=== PATIENT | male | born 1965 | race Caucasian/White ===

== ENCOUNTER 2025-09-07 19:03 | Emergency (ER) | payer BC, SELFPAY ==
[2025-09-07 19:04] VITALS: PULSE 84; RESP 20; TEMP 36.9; O2SAT 99; BMI 29.0
[2025-09-07 19:11] VITALS: BP 101/66
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
[2025-09-07 20:03] VITALS: BP 106/60; PULSE 83; RESP 14; O2SAT 98
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
--- OUTSIDE RECORDS SUMMARY | 2025-09-07 20:12 | XMS RPT_ITS | CCD ---
Author Organization [facility] ion [facility] Care Team Providers Care Legal Support Specialist Name Role Phone KRIS TELLEZ Unavailable Unavailable GIGAX, QUETA Spicer Attending Unavailable GIGAX, QUETA Spicer Attending Unavailable GIGAX, QUETA CESPEDES Attending Unavailable TELLEZ, KRIS LEXI Primary Care Unavail able TELLEZ, KRIS LEXI Attending Unavail able TELLEZ, KRIS LEXI Primary Care Unavail able GIGRYANN, QUETA CESPEDES Attending Unavailable TELLEZ, KRIS LEXI Primary Care Unavail able TELLEZ, KRIS LEXI Primary Care Unavail able GIGAX, QUETA CESPEDES Attending Unavailable TELLEZ, KRIS LEXI Primary Care Unavail able TELLEZ, KRIS LEXI Attending Unavail able TELLEZ, KRIS LEXI Primary Care Unavail able Tellez DO, Kris Lexi Primary Care Provide r Tellez DO, Kris Lexi Primary Care Provide r GEOFF, KRIS LEXI Primary Care Unavail able QUETA NELSON Attending Unavailable TELLEZ, KRIS LEXI Primary Care Unavail able QUETA NELSON Referring Unavailable GIGRYANN, QUETA CESPEDES Attending Unavailable TELLEZ, KRIS LEIX Primary Care Unavail able GIGAX, QUETA CESPEDES Attending Unavailable TELLEZ, KRIS LEXI Primary Care Unavail able TELLEZ, KRIS LEXI Primary Care Unavail able QUETA NELSON Referring Unavailable QUETA NELSON Admitting Unavailable GIGRYANN, QUETA CESPEDES Attending Unavailable TELLEZ, KRIS LEXI Primary Care Unavail able TELLEZ, KRIS LEXI Primary Care Unavail able GIGQUETA GARZON Referring Unavailable GIGRYANN, QUETA CESPEDES Attending Unavailable TELLEZ, KRIS LEXI Primary Care Unavail able TELLEZ, KRIS LEXI Attending Unavail able TELLEZ, KRIS LEXI Primary Care Unavail able GIGRYANN, QUETA CESPEDES Attending Unavailable TELLEZ, KRIS LEXI Primary Care Unavail able TELLEZ, KRIS LEXI Primary Care Unavail ecly NELSON, QUETA CESPEDES Referring Unavailable Allergies Allergy Classification Reported Allergen(s) Allergy Type Date of Onset Reaction(s) Facility (16 sources) Ciprofloxacin; Translations: [CIPROFLOXACIN] Drug Allergy 8 Other: See Comments [facility] Repository (16 sources) metroNIDAZOLE; Translations: [METRONIDAZOLE] Drug Allergy 8 Other: See Comments [facility] Repository Medications Current Medications Medication Drug Class(es) Dates Sig (Normalized) Sig (Original) KRILL OIL ORAL (6 sources) End: 06-05-2025 KRILL OIL ORAL Take by mouth. 06/05/2025 Discontinued (Discontinued by Patient) KRILL OIL ORAL T guru by mouth. Active mv-mins/folic/lycopene/ginkg o (DAILY MULTIPLE FOR MEN 50+ ORAL) (5 sources) Start: 03-20-2025 take 1 tablet by mouth once daily mv-mins/folic/lycopene/ginkgo (DAILY MULTIPLE FOR MEN 50+ ORAL) Take 1 tablet by mouth once daily. 03/20/2025 Active tadalafil 5 mg oral tablet (5 sources) Phospho diester ase 5 Inhibit or Start: 05-08-2025 End: 05-08-2026 take 1 tablet by mouth once daily Tadalafil (CIALIS) 5 mg tablet Indications: Benign prostatic hyperplasia with weak urinary stream Take 1 tablet by mouth once daily. 30 tablet 11 05/08/2025 05/08/2026 Active Completed/Discontinued Medications Medication Drug Class(es) Dates Sig (Normalized) Sig (Original) fluticasone propionate 0.05 mg/actuat metered dose nasal spray (1 source) Corticosteroid Start: 03-11-2023 take 2 spray(s) nasal route once daily at bedtime fluticasone (FLONASE) 50 mcg/actuation nasal spray Indications: Seasonal allergic rhinitis, unspecified trigger Use 2 Sprays in each nostril daily at bedtime. 16 g 2 03/11/2023 Active Comment on above: Use 2 Sprays in each nostril daily at bedtime. folic acid/multivit-min/l utein (CENTRUM SILVER ORAL) (1 source) End: 03-11-2023 folic acid/multivit-min /lutein (CENTRUM SILVER ORAL) Take by mouth. 0 03/11/2023 Discontinued Comment on above: Take by mouth. lidocaine hydrochloride 0.02 mg/mg topical gel (2 sources) Antiarrhythmic, Amide Local Anesthetic Start: 05-08-2025 End: 05-08-2025 lidocaine urojet 2 % 20 mL topical gel (GLYDO) Start: 05-08-2025 End: 05-08-2025 20 mL, URETHRAL, ONCE, 1 dos e, On Thu05/08/25 at 1530 sodium chloride 0.154 meq/ml irrigation solution (2 sources) Start: 05-08-2025 End: 05-08-2025 NaCl 0.9% irrigation solutio n Start: 05-08-2025 End: 05-08-2025 250 mL, IRRIGATION, ONCE, 1 dose, On Thu05/08/25 at 1530 1 ml triamcinolone acetonide 40 mg/ml injection (1 source) Corticosteroid Start: 03-11-2023 End: 03-11-2023 triamcinolone acetonide 40 mg injection (KeNALog 40) Start: 03-11-2023 End: 03-11-2023 triamcinolone acetonide 40 m g injection (KeNALog 40) Zinc (1 source) End: 03-11-2023 Zinc 50 mg tab Take by mouth . 0 03/11/2023 Discontinued Comment on above: Take by mouth. Problems Active Problems Problem Classification Problem Date Documented Da te Episodic/Chronic Hyperplasia of prostate (19 sources) Weak urinary stream due to benign prostatic hypertrophy; Translations: [Benign prostatic hyperplasia with lower urinary tract symptoms] Onset: 07-01-2021 07-01-2021 Chronic Other gastrointestinal disorders (15 sources) Celiac disease; Translations: [Celiac disease] Onset: 03-01-2021 03-01-2021 Chronic Other gastrointestinal disorders (1 source) Celiac disease; Translations: [Celiac disease (HCC)] Onset: 03-01-2021 Chronic Other infections; including parasitic (1 source) History of herpes zoster; Translations: [Personal history of other infectious and parasitic diseases] 06-05-2025 Episodic Other infections; including parasitic (1 source) Personal history of other infectious and parasitic diseases; Translations: [History of shingles] Onset: 06-05-2025 Episodic Other lower respiratory disease (1 source) Snoring; Translations: [Snoring] Episodic Other male genital disorders (1 source) Other male erectile dysfunction; Translations: [Other male erectile dysfunction] Onset: 08-10-2025 Chronic Other screening for suspected conditions (not mental disorders or infectious disease) (4 sources) Patient encounter status; Translations: [Encounter for screening for cardiovascular disorders] Onset: 06-05-2025 06-05-2025 Episodic Other upper respiratory disease (1 source) Seasonal allergic rhinitis; Translations: [Other seasonal allergic rhinitis] Chronic Residual codes; unclassified (1 source) Obstructive sleep apnea syndrome; Translations: [Obstructive sleep apnea (adult) (pediatric)] 06-05-2025 Chronic Residual codes; unclassified (1 source) Obstructive sleep apnea (adult) (pediatric); Translations: [BEN (obstructive sleep apnea)] Onset: 06-05-2025 Chronic Residual codes; unclassified (2 sources) Family history of malignant neoplasm of skin; Translations: [Family history of malignant neoplasm of other organs or systems] 06-05-2025 Episodic Residual codes; unclassified (1 source) Family history of malignant neoplasm of other organs or systems; Translations: [Family history of nonmelanoma skin cancer] Onset: 06-05-2025 Episodic Screening and history of mental health and substance abuse codes (2 sources) Encounter for screening for depression; Translations: [Encounter for screening examination for other mental health and behavioral disorders] Onset: 06-05-2025 Episodic Unclassified (1 source) Unknown / UNK(Unknown) Onset: 08-16-2018 Unclassified (2 sources) Autogenerated Problem Onset: 06-19-2025 06-19-2025 Past or Other Problems Problem Classification Problem Date Documented Da te Episodic/Chronic Genitourinary symptoms and ill-defined conditions (20 sources) Urinary tract obstruction; Translations: [Obstructive and reflux uropathy, unspecified] Onset: 01-10-2015 Resolved: 11-17-2023 03-01-2021 Episodic Other infections; including parasitic (10 sources) H/O: chickenpox; Translations: [Personal history of other infectious and parasitic diseases] Resolved: 03-01-2021 03-01-2021 Episodic Unclassified (1 source) RT SHOULDER PAIN Onset: 08-16-2018 Unclassified (1 source) N40.1 R39.12 Onset: 06-19-2022 Unclassified (2 sources) Patient encounter status 06-19-2025 Viral infection (10 sources) Herpes zoster without complication; Translations: [Zoster without complications] Resolved: 03-01-2021 03-01-2021 Episodic Results Test Name Value Interpretation Reference Range Facility [facility] 08-10-2025 CNOV Office Visit (UROUPD ) BLANCA NORIEGA ([id number]) 1965 M Date Time Provider Department 08/10/25 9:30 AM QUETA NELSON UROUPD During your visit today, we recorded the following information about you: Pulse Blood pressure 69/minute 110/61 Queta Nelson MD 08/10/2025 10:40 AM Signed August 10, 2025 Reason for Appointment Patient presents with: Follow Up: 6 week SX F/U. HPI Blanca Noriega is a 59 year old male who presents today for a follow-up appointment regarding the recent UroLift implantation. He notes that he was pretty sore for about a week to 10 days following the procedure but at this point he is feeling better. He is urinating much better and is pleased with the improvement in his urinary patterns. Current Medications mv-mins/folic/lycopen e/ginkgo (DAILY MULTIPLE FOR MEN 50+ ORAL) Take 1 tablet by mouth once daily. Tadalafil (CIALIS) 5 mg tablet Take 1 tablet by mouth once daily. PAST MEDICAL HISTORY Diagnosis Date Celiac disease (HCC) CPAP rhinitis Herpes zoster without complication History of chicken pox PAST SURGICAL HISTORY Procedure Laterality Date APPENDECTOMY VASECTOMY UNI/BI SPX W/POSTOP SEMEN EXAMS FAMILY HISTORY Problem Relation Age of Onset No Known Problems Mother Diabetes Father other (Kidney failure) Father other (Celiac disease) Brother No Known Problems Maternal Grandmother SOCIAL HISTORY[1] ALLERGIES Allergen Reactions Ciprofloxacin Other: See Comments Metronidazole Other: See Comments Objective BP 110/61 Pulse 69 SpO2 98% Physical Exam Constitutional: Appearance: Normal appearance. Pulmonary: Effort: Pulmonary effort is normal. Neurological: Mental Status: He is alert and oriented to person, place, and time. ASSESSMENT/PLAN: 1. Benign prostatic hyperplasia with weak urinary stream - ICD9: 600.01, 788.62, ICD10: N40.1, R39.12 (primary diagnosis) The patient is really doing well following UroLift. He said that he feels like he has gone back about 15 years in terms of his urinary patterns. He would like to stop taking the daily tadalafil which certainly is reasonable. We will plan to see him back in about 3 months. We will check a postvoid residual at that time. 2. Other male erectile dysfunction - ICD9: 607.84, ICD10: N52.8 The patient is getting some benefit from the daily tadalafil with regard to the erections. We discussed the as needed dosing in detail. The patient expressed understanding. Queta Nelson MD Follow Up Return in about 3 months (around 11/10/2025) for PVR. [1] Social History Tobacco Use Smoking status: Never Smokeless tobacco: Never Vaping Use Vaping status: Never Used Substance Use Topics Alcohol use: No Drug use: No Allergies As of Date: 08/10/2025 Noted Allergy Reaction CIPROFLOXACIN 08/13/2018 14 - Other: See Comments METRONIDAZOLE 08/13/2018 14 - Other: See Comments Date Reviewed: 08/10/2025 Reviewed by: Jessica Hawkins - Fully Assessed Reason for Visit: Follow Up [171] Cmt: 6 week SX F/U. Primary Visit Diagnosis:Benign prostatic hyperplasia with weak urinary stream [N40.1, R39.12] Other Visit Diagnosis:Other male erectile dysfunction [N52.8] Prescriptions as of 08/10/2025 - mv-mins/folic/lycopen e/ginkgo (DAILY MULTIPLE FOR MEN 50+ ORAL) Take 1 tablet by mouth once daily. - Tadalafil (CIALIS) 5 mg tablet Take 1 tablet by mouth once daily. Problem List As Of Date 08/10/2025 Noted Resolved Celiac disease [K90.0] 03/01/2021 Urinary (tract) obstruction [N13.9] 01/10/2015 11/17/2023 Difficulty urinating [R39.198] 03/01/2021 11/17/2023 History of chicken pox [Z86.19] 03/01/2021 Herpes zoster without complication [B02.9] 03/01/2021 Benign prostatic hyperplasia with weak urinary *07/01/2021 Retention of urine [R33.9] 01/08/2023 11/17/2023 Medications Discontinued During This Encounter Prescriptions - oxybutynin (DITROPAN) 5 mg tablet (Discontinued) Reported on 08/10/2025 Disposition: Return in about 3 months (around 11/10/2025) for PVR. Follow-up and Disposition History for Encounter Date Provider Department Center 08/10/2025 [id number] NELSONUROUPD [facility] Encounter Status:Closed by QUETA NELSON on 08/10/25 [facility] CNOVon 06-29-2025 [facility] Office Visit (UROUPD ) BLANCA NORIEGA ([id number]) 1965 M Date Time Provider Department 06/29/25 9:30 AM QUETA NELSON During your visit today, we recorded the following information about you: Rachana Bloom 06/29/2025 10:05 AM Signed Pt's indwelling catheter was removed without difficulty, pt tolerated well. BRAXTON Agarwal Michael Ralph, MD 06/29/2025 10:05 AM Signed Patient came in for cath removal nursing visit. Again, he underwent UroLift implantation yesterday. Allergies As of Date: 06/29/2025 Noted Allergy Reaction CIPROFLOXACIN 08/13/2018 14 - Other: See Comments METRONIDAZOLE 08/13/2018 14 - Other: See Comments Date Reviewed: 06/29/2025 Reviewed by: Rachana Bloom - Fully Assessed Reason for Visit: Follow Up [171] Cmt: Cath removal Primary Visit Diagnosis:Retention of urine [R33.9] Order(s):DISCONTINUE BARAJAS CATHETER ([place]) [[id number]] Order #: [id number]: 1 Prescriptions as of 06/29/2025 - cephALEXin (KEFLEX) 500 mg capsule Take 1 capsule by mouth three times a day for 3 days. - oxybutynin (DITROPAN) 5 mg tablet Take 1 tablet by mouth one time only for 1 dose. - mv-mins/folic/lycopen e/ginkgo (DAILY MULTIPLE FOR MEN 50+ ORAL) Take 1 tablet by mouth once daily. - Tadalafil (CIALIS) 5 mg tablet Take 1 tablet by mouth once daily. Problem List As Of Date 06/29/2025 Noted Resolved Celiac disease [K90.0] 03/01/2021 Urinary (tract) obstruction [N13.9] 01/10/2015 11/17/2023 Difficulty urinating [R39.198] 03/01/2021 11/17/2023 History of chicken pox [Z86.19] 03/01/2021 Herpes zoster without complication [B02.9] 03/01/2021 Benign prostatic hyperplasia with weak urinary *07/01/2021 Retention of urine [R33.9] 01/08/2023 11/17/2023 Encounter Status:Closed by QUETA NELSON on 06/29/25 [facility] ANES POSTPROC EVALon 025 ANES POSTPROC EVAL HNO ID: [id number] Author: LADONNA TAYLOR MD Service: ? Author Type: Physician Type: Anesthesia Postprocedure Evaluation Filed: 06/28/2025 16:56 Note Text: POST ANESTHESIA EVALUATION NOTE : 1965 Procedure Summary Date: 06/28/25 Room / Location: UN OR 06 / UN OR Anesthesia Start: 817 Anesthesia Stop: 857 Procedures: CYSTOSCOPY (Bladder) CYSTOURETHROSCOPY W/INSERTION OF PERM ADJ TRANSPROSTATIC IMPLANT; SINGLE IMPLANT (Bladder) Diagnosis: Benign prostatic hyperplasia with weak urinary stream (Benign prostatic hyperplasia with weak urinary stream [N40.1, R39.12]) Surgeons: Queta Nelson MD Responsible Provider: Ladonna Taylor MD Anesthesia Type: MAC ASA Status: 2 Anesthesia Type: MAC Last Vitals Vitals Value Taken Time BP 120/85 06/28/25 10:00 Temp 36.2 ?C (97.2 ?F) 06/28/25 08:59 Pulse 56 06/28/25 10:00 Resp 16 06/28/25 08:59 SpO2 98 % 06/28/25 10:06 Vitals shown include unfiled device data. Post Anesthesia Patient Status Patient Evaluation: bedside. Anticipated Disposition: phase 2 then home. Neurological Status: aware and responsive. Pulmonary Status: breathing comfortably on room air Airway Control: returned to baseline unsupported. Cardiovascular Status: stable. Pain Management: satisfactory to patient Postoperative Hydration: acceptable. Intraoperative Events: no significant anesthesia events Post Operative Nausea/Vomiting Status: no significant post operative nausea or vomiting Recommendation: continue current plan of care. Anesthesia Observations No Documentation SIGNATURE: Ladonna Taylor MD PATIENT NAME: Blanca Noriega DATE: June 28, 2025 TIME: 4:56 PM CSN: [id number] [facility] ANES PRE-OPon 06-28-2025 ANES PRE-OP HNO ID: [id number] Author: LADONNA TAYLOR MD Service: ? Author Type: Physician Type: Anesthesia Preprocedure Evaluation Filed: 06/28/2025 07:17 Note Text: ANESTHESIOLOGY DAY OF SURGERY NOTE : 1965 pt denies any previous problems with anesthesia BEN, wears CPAP Procedure Information Date/Time: 06/28/25 0815 Procedures: CYSTOSCOPY (Bladder) CYSTOURETHROSCOPY W/INSERTION OF PERM ADJ TRANSPROSTATIC IMPLANT; SINGLE IMPLANT (Bladder) Location: UN OR 04 / UN OR Surgeons: Queta Nelson MD Estimated body mass index is 25.85 kg/m? as calculated from the following: Height as of this encounter: 175.3 cm (5' 9). Weight as of this encounter: 79.4 kg (175 lb 0.7 oz). Most recent hematocrit and potassium results: Hematocrit 47.0 06/05/2025 Potassium 5.1 06/05/2025 Relevant Problems No relevant active problems I - PHYSICAL EVALUATION AIRWAY Patient intubated: No. Tracheostomy tube not present Mallampati: III. TM distance: >3 FB. Neck ROM: full ROM without neurological symptoms. Mouth openin FB. Short neck: no. Thick neck: no DENTAL Dental findings: teeth intact. Additional exam findings: yes. CARDIOVASCULAR Normal cardiovascular observations. PULMONARY Normal pulmonary observations. II - ANESTHESIA PLAN ASA Score: 2 Anesthetic Plan: MAC NPO Status: adequate Monitoring Plan Monitoring plan: standard ASA. Post Procedure Analgesic Plan Postoperative analgesic plan: per surgical service. Informed Consent Anesthetic risks, benefits, alternatives, personnel and consent discussed: yes. Patient / Responsible Alliance Party agrees to proceed: yes Patient / Surrogate agrees to blood products: blood products not planned Significant changes in the patient condition since the History and Physical, not otherwise documented in primary service progress note: no. Vitals Value Taken Time BP 121/80 06/28/25 06:58 Pulse 95 06/28/25 06:58 Resp 20 06/28/25 06:58 Temp 36.6 ?C (97.8 ?F) 06/28/25 06:58 SpO2 98 % 06/28/25 06:58 Facility-Administered Medications as of 06/28/2025 Medication Dose Route Frequency lactated ringers iv infusion 5-30 mL/hr INTRAVENOUS CONTINUOUS ceFAZolin iv piggyback 2 g in D5W (iso-osmotic) 100 mL (ANCEF) 2 g INTRAVENOUS Pre-Op Once Outpatient Medications as of 06/28/2025 Medication Sig mv-mins/folic/lycopen e/ginkgo (DAILY MULTIPLE FOR MEN 50+ ORAL) Take 1 tablet by mouth once daily. Tadalafil (CIALIS) 5 mg tablet Take 1 tablet by mouth once daily. I have interviewed and examined the patient. I have reviewed the medical record and/or the pre-anesthesia evaluation, pertinent labs, and test results. This contains updated information obtained within 48 hours of Surgery/Procedure. SIGNATURE: Ladonna Taylor MD PATIENT NAME: Blanca Noriega DATE: June 28, 2025 TIME: 7:17 AM CSN: [id number] [facility] 06-28-2025 [facility] Telephone (UROUPD) BLANCA NORIEGA ([id number]) 1965 M Date Time Provider Department 06/28/25 QUETA NELSON During your visit today, we recorded the following information about you: Erick Turner 06/28/2025 3:28 PM Signed Patient called stating he had a procedure done this morning and plans to stop in office tomorrow morning to get the cath removed. Queta Nelson MD 06/28/2025 3:57 PM Signed Noted. He can be a nurse visit. He is already on antibiotics Fatuo Thornton MA 06/28/2025 4:07 PM Signed Patient scheduled Fatou Thornton MA Allergies As of Date: 06/28/2025 Noted Allergy Reaction CIPROFLOXACIN 08/13/2018 14 - Other: See Comments METRONIDAZOLE 08/13/2018 14 - Other: See Comments Date Reviewed: 06/28/2025 Reviewed by: Candi French RN - Fully Assessed Reason for Visit: Patient Update [1234] Prescriptions as of 06/28/2025 - cephALEXin (KEFLEX) 500 mg capsule Take 1 capsule by mouth three times a day for 3 days. - mv-mins/folic/lycopen e/ginkgo (DAILY MULTIPLE FOR MEN 50+ ORAL) Take 1 tablet by mouth once daily. - Tadalafil (CIALIS) 5 mg tablet Take 1 tablet by mouth once daily. Problem List As Of Date 06/28/2025 Noted Resolved Celiac disease [K90.0] 03/01/2021 Urinary (tract) obstruction [N13.9] 01/10/2015 11/17/2023 Difficulty urinating [R39.198] 03/01/2021 11/17/2023 History of chicken pox [Z86.19] 03/01/2021 Herpes zoster without complication [B02.9] 03/01/2021 Benign prostatic hyperplasia with weak urinary *07/01/2021 Retention of urine [R33.9] 01/08/2023 11/17/2023 Encounter Status:[facility] BLAN[facility] ([id number]) 1965 M Date Time Provider Department 06/28/25 ELISSA SANTOS UROUPKrystina During your visit today, we recorded the following information about you: Elissa Santos DO 06/28/2025 7:13 PM Signed Pt called office reporting bladder spasms. Plan is for barajas removal severo, sending 1x dose oxybutynin for tonight. He reported UOP dark beer in color, advised to increase fluid intake. Given return precautions Elissa Santos DO Allergies As of Date: 06/28/2025 Noted Allergy Reaction CIPROFLOXACIN 08/13/2018 14 - Other: See Comments METRONIDAZOLE 08/13/2018 14 - Other: See Comments Date Reviewed: 06/28/2025 Reviewed by: Candi French RN - Fully Assessed Primary Visit Diagnosis:Bladder spasm [N32.89] Order(s):oxybutynin (DITROPAN) 5 mg tabletTake 1 tablet by mouth one time only for 1 dose.Disp: 1 tabletRfl: 0 Prescriptions as of 06/28/2025 - cephALEXin (KEFLEX) 500 mg capsule Take 1 capsule by mouth three times a day for 3 days. - oxybutynin (DITROPAN) 5 mg tablet Take 1 tablet by mouth one time only for 1 dose. - mv-mins/folic/lycopen e/ginkgo (DAILY MULTIPLE FOR MEN 50+ ORAL) Take 1 tablet by mouth once daily. - Tadalafil (CIALIS) 5 mg tablet Take 1 tablet by mouth once daily. Problem List As Of Date 06/28/2025 Noted Resolved Celiac disease [K90.0] 03/01/2021 Urinary (tract) obstruction [N13.9] 01/10/2015 11/17/2023 Difficulty urinating [R39.198] 03/01/2021 11/17/2023 History of chicken pox [Z86.19] 03/01/2021 Herpes zoster without complication [B02.9] 03/01/2021 Benign prostatic hyperplasia with weak urinary *07/01/2021 Retention of urine [R33.9] 01/08/2023 11/17/2023 Prescriptions ordered this encounter Disp Refills Start End OXYBUTYNIN CHLORIDE 5 MG TABLET 1 ta* 0 06/28/2025 06/28/2025 Route: PO Sig: Take 1 tablet by mouth one time only for 1 dose. Encounter Status:Closed by ELISSA SANTOS on 06/28/25 [facility] HISTORY PHYSICALon HISTORY PHYSICAL HNO ID: [id number] Author: QUETA NELSON MD Service: Urology Author Type: Physician Type: H&P Filed: 06/28/2025 07:58 Note Text: UPDATED HISTORY AND PHYSICAL EXAMINATION SERVICE DATE: 06/28/2025 SERVICE TIME: 7:57 AM Assessment AND Plan PHYSICAL EXAM MUST BE COMPLETED ON ADMISSION The History and Physical (completed in the past 30 days) has been reviewed and the patient has been examined. The contents accurately reflect the patient's condition with the following additions or revisions since the HANDP was completed. Examination indicates no changes. This HANDP can be found in the Electronic Medical Record. SIGNATURE: Queta Nelson MD PATIENT NAME: Blanca Noriega DATE: June 28, 2025 TIME: 7:[address] [facility] OPERATIVE NOon 06-28-2025 OPERATIVE NO HNO ID: [id number] Author: QUETA NELSON MD Service: Urology Author Type: Physician Type: Operative Report Filed: 06/28/2025 09:02 Note Text: OPERATIVE/PROCEDURE REPORT LOG ID: [id number] SURGERY/PROCEDURE DATE: 06/28/2025 INCISION/PROCEDURE START TIME: 8:30 AM INCISION CLOSE/PROCEDURE END TIME: 8:50 AM SURGEON(S)/PROCEDURAL IST(S) AND TIRE TESTER(S): Surgeons and Role: * Queta Nelson MD - Primary No Additional Staff SURGERY/PROCEDURE(S): Cystoscopy cystoscopy with UroLift implantation (7 implants attempted, 6 seated) ANESTHESIA: Monitored Anesthesia Care SURGERY/PROCEDURE DETAILS: The patient was taken to the operating room and placed in the supine position on the cystoscopy table. After he was sedated he was placed in the dorsolithotomy position and prepped and draped in usual fashion. The 20 [place] UroLift scope was inserted with the visual obturator. No abnormalities were noted within the bladder. I then obtained the first UroLift implant. The scope was then backed out into the prostatic fossa roughly 2 cm distal to the bladder neck. The first implant was deployed at this level. I then obtained a second implant which was deployed on the contralateral side at the same level. The third implant was then deployed just proximal to the verumontanum on the left side of the gland. The fourth implant was deployed just proximal to the verumontanum on the right side of the gland. At this point the right side of the gland was nicely retracted however the left side was still bulging into the channel. 1/5 implant was then deployed into this tissue just proximal to the verumontanum clip. There was again some bulging tissue requiring an additional implant. Upon attempting the sixth implant on the patient's left side the implant did not seat properly due to a bone strike secondary to the patient's anatomy. Upon second attempt with reduced compression the implant seated properly without the the bone strike. This implant resulted in excellent retraction of the lateral lobe obstruction. At this point the prostatic fossa was nicely patent. There was some oozing of blood from the prostate so I elected to place the catheter. The scope was removed. An 18 Croatian coude catheter was placed without difficulty. The balloon was inflated with 10 mL of sterile water. I manually irrigated the bladder a couple times. The irrigation was clear. The catheter was left to straight drain. The procedure was terminated. The patient was awakened and taken back to the ambulatory surgery care unit in stable condition. PRE-OP/PRE-PROCEDURE DIAGNOSIS: BPH with obstruction POST-OP/POST-PROCEDUR E DIAGNOSIS: Same ESTIMATED BLOOD LOSS: 10 mL SPECIMENS: None IMPLANTABLE DEVICES: UroLift implantation x 6 (7 attempted) DRAINS: Barajas catheter COMPLICATIONS: None CLOSURE TECHNIQUE: Not applicable PARTICIPATION IN SURGERY/PROCEDURE: I/primary surgeon/proceduralist performed the procedure with assistance. SIGNATURE: Queta Nelson MD PATIENT NAME: Blanca Noriega DATE: June 28, 2025 TIME: 8:[address] [facility] Bacteria Ur Culton 5 Bacteria identified Cx Nom (U) CULTURE, URINE: No growth (<1,000 CFU/ml) [facility] Comment on above: Performed By: #### 6 30-4 ####[facility] [id number] [place] [id number] [place] [facility] CNOVon 06-19-2025 CNOV Office Visit (UROUPD ) BLANCA NORIEGA ([id number]) 1965 M Date Time Provider Department 06/19/25 9:15 AM QUETA NELSON During your visit today, we recorded the following information about you: Pulse Blood pressure 52/minute 116/74 Jessica Hawkins 06/19/2025 9:30 AM Signed ULTRASOUND PVR VOLUME: 211 ml TIME: 9:30 am. DONE BY: Fatou Martinez MA 06/19/2025 9:51 AM Signed Outpatient Surgery Instructions We have scheduled your surgery for at [facility]. You will receive your surgery time from [facility] the business day prior to surgery. Instructions for the Day of Surgery: On the day of your scheduled surgery, report to the Main Lobby Registration at [facility] using the Main Hospital Entrance. You will be required to have a responsible adult, 18 years or older and who is licensed to drive, accompany you home after the surgery or day of discharge. Remember to wear comfortable clothing. The hospital will provide a gown for you. Pre-Operative Instructions: Do not eat or drink anything after midnight prior to surgery. Make sure to follow any specific instructions given by your surgeon; for example, if you are to be on a clear liquid diet the day before your surgery and then to stop all intake after midnight prior to surgery. Shower using CHG soap the evening before and the morning of surgery, or as directed by the surgeon?s office. Do not use CHG soap on the face or genital areas. Wear clean clothes after showering and have clean bed linens the night before surgery. Do not shave the operative area or surrounding site. Make sure to complete ALL pre-op testing prior to surgery: labs, radiology, EKG, etc. TWO week before surgery is best or as instructed by your surgeon. If testing is not done at [facility], please have the facility send results to your surgeon?s office. Do not drink alcohol, use smokeless tobacco, or any type of marijuana products after midnight prior to surgery. Do not use any type of tobacco products, including vaping, on the morning of or the day of your surgery. Any abrasions, open wounds or change in skin condition and/or a change in health, fever, cough, cold and flu like symptoms is to be reported to the patient?s surgeon. If you have contacts, dentures, or any type of jewelry, please leave these items and other valuables at home, or be able to remove them upon arrival. Please bring hearing aids if you have them, they will be removed before going into the OR/procedure room and will be returned to you after recovery. Instructions for Medications Prior to Surgery: The Pre-Op Clinic will contact you prior to surgery and review the medications you are to take the morning of surgery, with a small sip of water only. The staff will also review your medical history, including an up-to-date medication list, and pre-op instructions. For any type of blood thinners, please hold blood thinner (Coumadin, Aspirin, Plavix, NSAIDS, etc. This is including Ibuprofen products, Naproxen products, Celebrex, Ketoprofen, Indomethacin, Diclofenac, Meclofenamate, or Etodolac.) starting 7 days before surgery. If you have an insulin pump, please refer to your prescribing provider for dose instructions the day of surgery. If you have any questions before surgery please call the office at [phone] and ask for the boats renter. Queta Nelson MD 06/19/2025 10:12 AM Signed June 19, 2025 Reason for Appointment Patient presents with: Follow Up: 6 week PVR. HPI Blanca Noriega is a 59 year old male who presents today for a follow-up a follow-up appointment. Clinically the patient is doing okay. He said that he thinks there may have been some initial improvement with his urinary patterns with the tadalafil however at this point he is still complaining about hesitancy and incomplete emptying despite taking the medication. The patient has had symptoms for quite some time and feels like he is ready for surgical intervention. Current Medications mv-mins/folic/lycopen e/ginkgo (DAILY MULTIPLE FOR MEN 50+ ORAL) Take 1 tablet by mouth once daily. Tadalafil (CIALIS) 5 mg tablet Take 1 tablet by mouth once daily. PAST MEDICAL HISTORY Diagnosis Date Celiac disease (HCC) CPAP rhinitis Herpes zoster without complication History of chicken pox PAST SURGICAL HISTORY Procedure Laterality Date APPENDECTOMY VASECTOMY UNI/BI SPX W/POSTOP SEMEN EXAMS FAMILY HISTORY Problem Relation Age of Onset No Known Problems Mother Diabetes Father other (Kidney failure) Father other (Celiac disease) Brother No Known Problems Maternal Grandmother SOCIAL HISTORY[1] ALLERGIES Allergen Reactions Ciprofloxacin Other: See Comments Metronidazole Other: See Comments Objective BP 116/74 Pulse 52 SpO2 100% Physical Exam Constitu (more content not included)... Normal [facility] ECG COMPLETEon 06-19-2025 ECG COMPLETE Ventricular Rate : 5 6 BPM Atrial Rate : 56 BPM P-R Interval : 152 ms QRS Duration : 88 ms Q-T Interval : 414 ms QTC Calculation(Bazett) : 399 ms Calculated P [place] : 17 degrees Calculated R [place] : 10 degrees Calculated T [place] : 65 degrees Sinus bradycardia Otherwise normal ECG No previous ECGs available Confirmed by NICOLAS RAMIREZ MD ([id number]) on 06/20/2025 8:26:35 AM NAME : BLANCA NORIEGA PID : [id number] : 1965 Gender : Male Race : ORD : [id number] Procedure Date : Jun 19 2025 10:12:05 Edit Date : Jun 20 2025 08:26:37 Diagnosis: Sinus bradycardia Otherwise normal ECG No previous ECGs available Confirmed by NICOLAS RAMIREZ MD ([id number]) on 06/20/2025 8:26:35 AM Test Reason : [facility] Over[facility] By : NICOLAS RAMIREZ MD Edited By : NICOLAS RAMIREZ MD Referred By : QUETA NELSON Acquired by : MASSIEL WHITE [facility] 25(OH)D3 [facility] 20[facility] 25-hydroxyvitamin D3 [Mass/Vol] 43.9 ng/mL Normal 31.0-80.0 [facility] Comment on above: Order Comment: Speci men Type: BLOOD SPECIMENOrdering Facility: [facility] Address: [address] [place] [address] Performed By: #### 1 989-3, 15083-1, 93080-4 ####[facility] LABCLIA [id number] [place] [address] [place] CBC W Auto Differential pane l (Bld)on 06-05-2025 Basophils (Bld) [#/Vol] 0.03 10*3/uL Normal <0.11 [facility] Comment on above: Order Comment: Speci men Type: BLOOD SPECIMENOrdering Facility: [facility] Address: [address] [place] [address] Performed By: #### 5 7021-8 ####[facility] LABCLIA [id number] [place] [address] [place] Basophils/100 WBC (Bld) 0.7 % Normal [facility] Comment on above: Order Comment: Speci men Type: BLOOD SPECIMENOrdering Facility: [facility] Address: [address] [place] [address] Performed By: #### 5 7021-8 ####[facility] LABIA [id number] [place] [address] [place] [facility] Differential cell count method Nom (Bld) Auto Normal [facility] Comment on above: Order Comment: Speci men Type: BLOOD SPECIMENOrdering Facility: [facility] Address: [address] [place] [address] Performed By: #### 5 7021-8 ####[facility]CLIA [id number] [place] [address] [place] Eosinophils (Bld) [#/Vol] 0.19 10*3/uL Normal <0.46 [facility] Comment on above: Order Comment: Speci men Type: BLOOD SPECIMENOrdering Facility: [facility] Address: [address] [place] [address] Performed By: #### 5 7021-8 ####[facility]CLIA [id number] [place] [address] [place] Eosinophils/100 WBC (Bld) 4.7 % Normal [facility] Comment on above: Order Comment: Speci men Type: BLOOD SPECIMENOrdering Facility: [facility] Address: [address] [place] [address] Performed By: #### 5 7021-8 ####[facility] LABIA [id number] [place] [address] [place] [facility] Erythrocyte distribution width (RBC) [Ratio] 13.5 % Normal 11.5-15.0 [facility] Comment on above: Order Comment: Speci men Type: BLOOD SPECIMENOrdering Facility: [facility] Address: [address] [place] [address] Performed By: #### 5 7021-8 ####[facility] [place] [id number] [address] [place] Hematocrit (Bld) [Volume fraction] 47.0 % Normal 39.0-51.0 [facility] Comment on above: Order Comment: Speci men Type: BLOOD SPECIMENOrdering Facility: [facility] Address: [address] [place] [address] Performed By: #### 5 7021-8 ####[facility] [place] [id number] [place] [address] [place] Hemoglobin (Bld) [Mass/Vol] 15.6 g/dL Normal 13.0-17.0 [facility] Comment on above: Order Comment: Speci men Type: BLOOD SPECIMENOrdering Facility: [facility] Address: [address] [place] [address] Performed By: #### 5 7021-8 ####[facility] LABIA [id number] [address] [place] [facility] Immature granulocytes (Bld) [#/Vol] 10*3/uL Normal <0.10 [facility] Comment on above: Order Comment: Speci men Type: BLOOD SPECIMENOrdering Facility: [facility] Address: [address] [place] [address] Performed By: #### 5 7021-8 ####[facility] LABIA [id number] [place] [address] [place] [facility] Immature granulocytes/100 WBC (Bld) 0.5 % Normal [facility] Comment on above: Order Comment: Speci men Type: BLOOD SPECIMENOrdering Facility: [facility] Address: [address] [place] [address] Performed By: #### 5 7021-8 ####[facility] LABIA [id number] [place] [address] [place] Lymphocytes (Bld) [#/Vol] 1.07 10*3/uL Normal 1.00-4.00 [facility] Comment on above: Order Comment: Speci men Type: BLOOD SPECIMENOrdering Facility: [facility] Address: [address] [place] [address] Performed By: #### 5 7021-8 ####[facility] [place] [id number] [address] [place] Lymphocytes/100 WBC (Bld) 26.4 % Normal [facility] Comment on above: Order Comment: Speci men Type: BLOOD SPECIMENOrdering Facility: [facility] Address: [address] [place] [address] Performed By: #### 5 7021-8 ####[facility] LABIA [id number] [place] [address] [place] MCH (RBC) [Entitic mass] 31.1 pg Normal 26.0-34.0 [facility] Comment on above: Order Comment: Speci men Type: BLOOD SPECIMENOrdering Facility: [facility] Address: [address] [place] [address] Performed By: #### 5 7021-8 ####[facility] LABIA [id number] [place] [address] [place] MCHC (RBC) [Mass/Vol] 33.2 g/dL Normal 30.5-36.0 [facility] Comment on above: Order Comment: Speci men Type: BLOOD SPECIMENOrdering Facility: [facility] Address: [address] [place] [address] Performed By: #### 5 7021-8 ####[facility] LABIA [id number] [place] [address] [place] MCV (RBC) [Entitic vol] 93.8 fL Normal 80.0-100.0 [facility] Comment on above: Order Comment: Speci men Type: BLOOD SPECIMENOrdering Facility: [facility] Address: [address] [place] [address] Performed By: #### 5 7021-8 ####[facility] LABIA [id number] [place] [address] [place] Monocytes (Bld) [#/Vol] 0.50 10*3/uL Normal <0.87 [facility] Comment on above: Order Comment: Speci men Type: BLOOD SPECIMENOrdering Facility: [facility] Address: [address] [place] [address] Performed By: #### 5 7021-8 ####[facility] [place] [id number] [place] [address] [place] Monocytes/100 WBC (Bld) 12.3 % Normal [facility] Comment on above: Order Comment: Speci men Type: BLOOD SPECIMENOrdering Facility: [facility] Address: [address] [place] [address] Performed By: #### 5 7021-8 ####[facility] [place] [id number] [place] [address] [place] Neutrophils (Bld) [#/Vol] 2.24 10*3/uL Normal 1.45-7.50 [facility] Comment on above: Order Comment: Speci men Type: BLOOD SPECIMENOrdering Facility: [facility] Address: [address] [place] [address] Performed By: #### 5 7021-8 ####[facility] [id number] [place] [address] [place] Neutrophils/100 WBC (Bld) 55.4 % Normal [facility] Comment on above: Order Comment: Speci men Type: BLOOD SPECIMENOrdering Facility: [facility] Address: [address] [place] [address] Performed By: #### 5 7021-8 ####[facility] LABIA [id number] [place] [address] [place] Nucleated RBC (Bld) [#/Vol] 10*3/uL Normal <0.01 [facility] Comment on above: Order Comment: Speci men Type: BLOOD SPECIMENOrdering Facility: [facility] Address: [address] [place] [address] Performed By: #### 5 7021-8 ####[facility] [place] [id number] [place] [address] [place] Nucleated RBC/100 WBC (Bld) [Ratio] 0.0 /100 WBC Normal [facility] Comment on above: Order Comment: Speci men Type: BLOOD SPECIMENOrdering Facility: [facility] Address: [address] [place] [address] Performed By: #### 5 7021-8 ####[facility] [place] [id number] [place] [address] [place] Platelet mean volume (Bld) [Entitic vol] 11.1 fL Normal 9.0-12.7 [facility] Comment on above: Order Comment: Speci men Type: BLOOD SPECIMENOrdering Facility: [facility] Address: [address] [place] [address] Performed By: #### 5 7021-8 ####[facility] [place] [id number] [place] [address] [place] Platelets (Bld) [#/Vol] 184 10*3/uL Normal 150-400 [facility] Comment on above: Order Comment: Speci men Type: BLOOD SPECIMENOrdering Facility: [facility] Address: [address] [place] [address] Performed By: #### 5 7021-8 ####[facility] [id number] [place] [address] [place] RBC (Bld) [#/Vol] 5.01 10*6/uL Normal 4.20-6.00 [facility] Comment on above: Order Comment: Speci men Type: BLOOD SPECIMENOrdering Facility: [facility] Address: [address] [place] [address] Performed By: #### 5 7021-8 ####[facility] LABIA [id number] [address] [place] WBC (Bld) [#/Vol] 4.05 10*3/uL Normal 3.70-11.00 [facility] Comment on above: Order Comment: Speci men Type: BLOOD SPECIMENOrdering Facility: [facility] Address: [address] [place] [id number] Performed By: #### 5 7021-8 ####[facility] LABIA [id number] [place] [address] [facility] CNOVon 06-05-2025 CNOV Office Visit (FMUPNE ) BLANCA NORIEGA ([id number]) 1965 M Date Time Provider Department 06/05/25 8:00 AM KRIS TELLEZ RAMY During your visit today, we recorded the following information about you: Temperature Pulse Blood pressure Weight 97.5 degrees 72/minute 96/68 80.1 kg Height 1.778 m Kris Tellez DO 06/05/2025 8:42 AM Signed SUBJECTIVE: Blanca Noriega is a 59 year old male here today for an annual physical. I reviewed his past medical, surgical, social, and family histories today and updated chart. Allergies, chronic medications, and supplements were also reviewed and his list in the chart is now up to date. Concern(s) today include: Wellness (Pt is asking for referral to Derm. Pt is fasting. ) Pt's brother diagnosed with skin cancer and pt with years of sun exposure as a child. His medications were reviewed today and his list is now up to date. He is compliant on taking his medications :Yes He is tolerating his medication(s) without side effects: Yes He is following an appropriate diet for his medical problems: Yes He is getting some exercise in? Yes SOCIAL HISTORY[1] REVIEW OF SYSTEMS: Review of Systems Constitutional: Negative for chills, fatigue and fever. HENT: Negative for congestion, ear pain and sore throat. Respiratory: Negative for cough, shortness of breath and wheezing. Cardiovascular: Negative for chest pain, palpitations and leg swelling. Gastrointestinal: Negative for abdominal pain, constipation, diarrhea, nausea and vomiting. Musculoskeletal: Negative for arthralgias, joint swelling and myalgias. Skin: Negative for color change and rash. Neurological: Negative for dizziness, numbness and headaches. Hematological: Does not bruise/bleed easily. Psychiatric/Behaviora l: Negative. Negative for dysphoric mood. All other systems reviewed and are negative. PHYSICAL EXAMINATION: BP 96/68 (BP Site: Left Arm, BP Position: Sitting, BP Cuff Size: Regular Adult) Pulse 72 Temp 36.4 ?C (97.5 ?F) Ht 177.8 cm (5' 10) Wt 80.1 kg (176 lb 9.4 oz) SpO2 97% BMI 25.34 kg/m? BMI 25.34 kg/(m2) Physical Exam Vitals reviewed. Constitutional: General: He is not in acute distress. Appearance: Normal appearance. He is well-developed. HENT: Head: Normocephalic and atraumatic. Right Ear: External ear normal. Left Ear: External ear normal. Nose: Nose normal. Mouth/Throat: Mouth: Mucous membranes are moist. Eyes: General: No scleral icterus. Right eye: No discharge. Left eye: No discharge. Extraocular Movements: Extraocular movements intact. Conjunctiva/sclera: Conjunctivae normal. Cardiovascular: Rate and Rhythm: Normal rate and regular rhythm. Pulmonary: Effort: Pulmonary effort is normal. No respiratory distress. Breath sounds: Normal breath sounds. Abdominal: General: Abdomen is flat. Musculoskeletal: Cervical back: Normal range of motion. Comments: Normal gait Skin: General: Skin is warm and dry. Neurological: General: No focal deficit present. Mental Status: He is alert and oriented to person, place, and time. Cranial Nerves: No cranial nerve deficit. Psychiatric: Mood and Affect: Mood normal. Behavior: Behavior normal. Thought Content: Thought content normal. Judgment: Judgment normal. ASSESSMENT/PLAN: 1. Wellness examination - ICD9: V70.0, ICD10: Z00.00 (primary diagnosis) - Counseled on healthy diet and regular exercise - Patient counseled on and acknowledged vaccine benefits/risks/side effects; VIS provided: Shingrix - Follow up for annual exam in one year - COMPLETE BLOOD COUNT AND DIFFERENTIAL - COMPREHENSIVE METABOLIC PANEL - LIPID PANEL, FASTING - VITAMIN D 25 HYDROXY 2. Screening for depression - ICD9: V79.0, ICD10: Z13.31 - DEPRESSION SCREENING 3. Encounter for screening examination for other mental health and behavioral disorders - ICD9: V79.8, ICD10: Z13.39 - ANXIETY SCREENING 4. Celiac disease (HCC) - ICD9: 579.0, ICD10: K90.0 - COMPLETE BLOOD COUNT AND DIFFERENTIAL - COMPREHENSIVE METABOLIC PANEL - VITAMIN D 25 HYDROXY 5. BEN (obstructive sleep apnea) - ICD9: 327.23, ICD10: G47.33 6. History of shingles - ICD9: V12.09, ICD10: Z86.19 2018 when moved to the area. Discussed getting shingles vaccine. Will consider. 7. Screening for heart disease - ICD9: V81.2, ICD10: Z13.6 - LIPID PANEL, FASTING 8. Family history of nonmelanoma skin cancer - ICD9: V19.4, ICD10: Z80.8 - CONSULT TO DERMATOLOGY Kris Tellez DO [1] Social History Tobacco Use Smoking status: Never Smokeless tobacco: Never Vaping Use Vaping status: Never Used Substance Use Topics Alcohol use: No Drug use: No Makayla Aguilera MA 06/05/2025 8:52 AM Signed Successful 21G venipuncture, left arm. 1 gold sst tube and 1 lavender EDTA tube collected. Tubes labeled with beaker label and scanned (more content not included)... [facility] Jerry 06-05-2025 ELSIE Telephone (ALETA) BLANCA NORIEGA ([id number]) 1965 M Date Time Provider Department 06/05/25 KRIS TELLEZ During your visit today, we recorded the following information about you: Kris Tellez DO 06/05/2025 8:41 AM Signed Referral to derm placed. Pt would like to go to [place] area please. DO Nitza Ellsworth Suzanne 06/05/2025 11:04 AM Signed Blanca Noriega [id number] Blanca Noriega has been referred to [facility] in [place]. P [phone] F [phone] The referral has been faxed and there office will call the patient to schedule. Allergies As of Date: 06/05/2025 Noted Allergy Reaction CIPROFLOXACIN 08/13/2018 14 - Other: See Comments METRONIDAZOLE 08/13/2018 14 - Other: See Comments Date Reviewed: 06/05/2025 Reviewed by: Kris Tellez DO - Fully Assessed Reason for Visit: Orders [681] Prescriptions as of 06/05/2025 - mv-mins/folic/lycopen e/ginkgo (DAILY MULTIPLE FOR MEN 50+ ORAL) Take 1 tablet by mouth once daily. - Tadalafil (CIALIS) 5 mg tablet Take 1 tablet by mouth once daily. Problem List As Of Date 06/05/2025 Noted Resolved Celiac disease [K90.0] 03/01/2021 Urinary (tract) obstruction [N13.9] 01/10/2015 11/17/2023 Difficulty urinating [R39.198] 03/01/2021 11/17/2023 History of chicken pox [Z86.19] 03/01/2021 Herpes zoster without complication [B02.9] 03/01/2021 Benign prostatic hyperplasia with weak urinary *07/01/2021 Retention of urine [R33.9] 01/08/2023 11/17/2023 Encounter Status:Closed by AKILAH JEREZ on 06/05/25 Normal [facility] Comprehensive metabolic 2000 panelon 06-05-2025 Albumin [Mass/Vol] 4.3 g/dL Normal 3.9-4.9 [facility] Comment on above: Order Comment: Speci men Type: BLOOD SPECIMENOrdering Facility: [facility] Address: [address] [id number] Performed By: #### 1 989-3, 78981-9, ####[facility] LABCLIA [id number] [place] [address] [place] ALP [Catalytic activity/Vol] 141 U/L High 38-113 [facility] Comment on above: Order Comment: Speci men Type: BLOOD SPECIMENOrdering Facility: [facility] Address: [address] [place] [address] Performed By: #### 1 989-3, 10923-9, ####[facility] LABCLIA [id number] [place] [address] [place] ALT [Catalytic activity/Vol] 13 U/L Normal 10-54 [facility] Comment on above: Order Comment: Speci men Type: BLOOD SPECIMENOrdering Facility: [facility] Address: [address] [place] [address] Performed By: #### 1 989-3, 37547-4, ####[facility] LABCLIA [id number] [place] [address] [place] Anion gap [Moles/Vol] 10 mmol/L Normal 8-15 [facility] Comment on above: Order Comment: Speci men Type: BLOOD SPECIMENOrdering Facility: [facility] Address: [address] [place], [place] [id number] Performed By: #### 1 989-3, 07183-8, ####[facility] LABCLIA [id number] [place] [address] [place] AST [Catalytic activity/Vol] 17 U/L Normal 14-40 [facility] Comment on above: Order Comment: Speci men Type: BLOOD SPECIMENOrdering Facility: [facility] Address: [address] [place], [place] [id number] Performed By: #### 1 989-3, 52885-4, 35091-9 ####[facility] LABCLIA [id number] [address] [address] [place] Bilirubin [Mass/Vol] 0.7 mg/dL Normal 0.2-1.3 [facility] Comment on above: Order Comment: Speci men Type: BLOOD SPECIMENOrdering Facility: [facility] Address: [address] [place] [address] Performed By: #### 1 989-3, 48343-8, 79332-9 ####[facility] LABIA [id number] [place] [address] [place] Calcium [Mass/Vol] 8.9 mg/dL Normal 8.5-10.2 [facility] Comment on above: Order Comment: Speci men Type: BLOOD SPECIMENOrdering Facility: [facility] Address: [address] [place] [address] Performed By: #### 1 989-3, 94633-4, 65957-0 ####[facility] [place] [place] [id number] [place] [address] [place] Chloride [Moles/Vol] 106 mmol/L Normal 98-107 [facility] Comment on above: Order Comment: Speci men Type: BLOOD SPECIMENOrdering Facility: [facility] Address: [address] [place] [address] Performed By: #### 1 989-3, 73139-6, 39912-7 ####[facility] LABIA [id number] [place] [address] [place] CO2 [Moles/Vol] 26 mmol/L Normal 22-30 [facility] Comment on above: Order Comment: Speci men Type: BLOOD SPECIMENOrdering Facility: [facility] Address: [address] [place] [address] Performed By: #### 1 989-3, 16586-5, 71005-7 ####[facility] LABIA [id number] [address] [address] [place] Creatinine [Mass/Vol] 1.28 mg/dL High 0.73-1.22 [facility] Comment on above: Order Comment: Speci men Type: BLOOD SPECIMENOrdering Facility: [facility] Address: [address] [place], [place] [address] Performed By: #### 1 989-3, 78971-3, 50450-4 ####[facility] LABCLIA [id number] [place] [address] [place] eGFRcr SerPlBld CKD-EPI 2020 64 mL/min/1.73m??? Normal >=60 [facility] Comment on above: Order Comment: Kimberley dickens Type: BLOOD SPECIMENOrdering Facility: [facility] Address: [address] [place] [address] Result Comment: Lindsey mated Glomerular Filtration Rate (eGFR) is calculated using the 2020 CKD-EPI creatinine equation. This equation utilizes serum creatinine, sex, and age as parameters. The creatinine assay has traceable calibration to isotope dilution-mass spectrometry. Refer to KDIGO guidelines for clinical interpretation. In patients with unstable renal function, e.g. those with acute kidney injury, the eGFR may not accurately reflect actual GFR. Performed By: #### 1 989-3, 65407-2, 26039-4 ####[facility] LABCLIA [id number] [place] [address] [place] Glucose [Mass/Vol] 108 mg/dL High 74-99 [facility] Comment on above: Order Comment: Kimberley chrissie Type: BLOOD SPECIMENOrdering Facility: [facility] Address: [address] [place] [address] Result Comment: The [place] Diabetes Association (ADA) provides guidance for cutoff values for fasting glucose and random glucose. The ADA defines fasting as no caloric intake for at least 8 hours. Fasting plasma glucose results between 100 to 125 mg/dL indicate increased risk for diabetes (prediabetes). Fasting plasma glucose results greater than or equal to 126 mg/dL meet the criteria for diagnosis of diabetes. In the absence of unequivocal hyperglycemia, results should be confirmed by repeat testing. In a patient with classic symptoms of hyperglycemia or hyperglycemic crisis, random plasma glucose results greater than or equal to 200 mg/dL meet the criteria for diagnosis of diabetes. Reference: Standards of Medical Care in Diabetes 2016, [place] Diabetes Association. Diabetes Care. 2016.39(Suppl 1). Performed By: #### 1 989-3, 77264-5, 01357-1 ####[facility] LABIA [id number] [address] [address] [place] Potassium [Moles/Vol] 5.1 mmol/L Normal 3.7-5.1 [facility] Comment on above: Order Comment: Speci men Type: BLOOD SPECIMENOrdering Facility: [facility] Address: [address] [place] [address] Performed By: #### 1 989-3, 29123-0, ####[facility] [id number] [address] [address] [place] Protein [Mass/Vol] 6.7 g/dL Normal 6.3-8.0 [facility] Comment on above: Order Comment: Speci men Type: BLOOD SPECIMENOrdering Facility: [facility] Address: [address] [place] [address] Performed By: #### 1 989-3, 86839-7, ####[facility] [place] [place] [id number] [place] [address] [place] Sodium [Moles/Vol] 142 mmol/L Normal 136-144 [facility] Comment on above: Order Comment: Speci men Type: BLOOD SPECIMENOrdering Facility: [facility] Address: [address] [place] [address] Performed By: #### 1 989-3, , ####[facility] LABIA [id number] [address] [address] [place] Urea nitrogen [Mass/Vol] 22 mg/dL Normal 9-24 [facility] Comment on above: Order Comment: Speci men Type: BLOOD SPECIMENOrdering Facility: [facility] Address: [address] [place] [address] Performed By: #### 1 989-3, 20144-8, 64973-4 ####[facility] LABIA [id number] [address] Lipid 1996 panelon 5 Cholesterol [Mass/Vol] 150 mg/dL Normal <200 [facility] Comment on above: Order Comment: Speci men Type: BLOOD SPECIMENOrdering Facility: [facility] Address: [address] [place] [address] Result Comment: <200 mg/dL, Desirable 200-239 mg/dL, Borderline high >239 mg/dL, High Performed By: #### 1 989-3, 33875-4, 27829-1 ####[facility] LABCLIA [id number] [address] [address] [facility] Cholesterol in HDL [Mass/Vol] 54 mg/dL Normal >39 [facility] Comment on above: Order Comment: Speci men Type: BLOOD SPECIMENOrdering Facility: [facility] Address: [address] [place] [address] Result Comment: 40-5 9 mg/dL, Acceptable >59 mg/dL, High: Negative risk factor for coronary heart disease <40 mg/dL, Low: Positive risk factor for coronary heart disease Performed By: #### 1 989-3, 08797-4, 75413-2 ####[facility] LABIA [id number] [address] [address] [facility] Cholesterol in LDL [Mass/Vol] 83 mg/dL Normal <100 [facility] Comment on above: Order Comment: Speci chrissie Type: BLOOD SPECIMENOrdering Facility: [facility] Address: [address] [place] [address] Result Comment: <100 mg/dL, Optimal 100-129 mg/dL, Near optimal/above optimal 130-159 mg/dL, Borderline high 160-189 mg/dL, High >189 mg/dL, Very high Secondary prevention optimal LDL Cholesterol levels are recommended to be <70 mg/dL LDL cholesterol is calculated using the Figueroa-NIH equation. Performed By: #### 1 989-3, 64295-8, 41785-2 ####[facility] LABCLIA [id number] [place] [address] [facility] Cholesterol in LDL/Cholesterol in HDL [Mass ratio] 1.54 {ratio} Normal <2.54 [facility] Comment on above: Order Comment: Speci men Type: BLOOD SPECIMENOrdering Facility: [facility] Address: [address] [place] [address] Result Comment: Afia valdovinos: 1. National Cholesterol Education Program ATP III Guideline At-A-Glance Quick Desk Reference: National Heart, Lung, and Blood Forgan. National Institutes of Health. 2001: NIH Publication No. 01-3305. 2. An International Atherosclerosis Society position paper: global recommendations for the management of dyslipidemia: executive summary, Atherosclerosis. 2014: 232(2):410-413. Performed By: #### 1 989-3, 49025-7, 82208-1 ####[facility] LABCLIA [id number] [place] [address] [place] Cholesterol in VLDL [Mass/Vol] 10 mg/dL Normal <30 [facility] Comment on above: Order Comment: Speci men Type: BLOOD SPECIMENOrdering Facility: [facility] Address: [address] [place] [address] Performed By: #### 1 989-3, 94556-6, 21447-5 ####[facility] LABIA [id number] [place] [address] [place] Cholesterol non HDL [Mass/Vol] 96 mg/dL Normal <130 [facility] Comment on above: Order Comment: Danisi chrissie Type: BLOOD SPECIMENOrdering Facility: [facility] Address: [address] [place] [address] Result Comment: <130 mg/dL, Optimal 130-159 mg/dL, Near optimal/above optimal 160-189 mg/dL, Borderline high 190-219 mg/dL, High >219 mg/dL, Very high Secondary prevention optimal non HDL Cholesterol levels are recommended to be <100 mg/dL Performed By: #### 1 989-3, 80538-0, 09178-4 ####[facility] LABCLIA [id number] [address] [address] [place] Cholesterol.total/ Cholesterol in HDL [Mass ratio] 2.78 {ratio} Normal <5.10 [facility] Comment on above: Order Comment: Speci men Type: BLOOD SPECIMENOrdering Facility: [facility] Address: [address] [id number] Performed By: #### 1 989-3, 12029-6, 83243-7 ####[facility] LABIA [id number] [place] [address] [place] FASTING TIME 12 hrs Normal [facility] Comment on above: Order Comment: Speci men Type: BLOOD SPECIMENOrdering Facility: [facility] Address: [address] [place] [address] Performed By: #### 1 989-3, 77020-8, 69001-8 ####[facility] LABIA [id number] [address] [address] [place] Triglyceride [Mass/Vol] 63 mg/dL Normal <150 [facility] Comment on above: Order Comment: Speci men Type: BLOOD SPECIMENOrdering Facility: [facility] Address: [address] [place] [address] Result Comment: <150 mg/dL, Normal 150-199 mg/dL, Borderline high 200-499 mg/dL, High >499 mg/dL, Very high Performed By: #### 1 989-3, 62449-7, 37637-3 ####[facility] LABIA [id number] [place] [address] [place] CNOVon 05-08-2025 CNOV Office Visit (UROUPD ) BLANCA NORIEGA ([id number]) 1965 M Date Time Provider Department 05/08/25 2:30 PM QUETA NELSON During your visit today, we recorded the following information about you: Pulse Blood pressure 71/minute 144/90 Queta Nelson MD 05/08/2025 3:17 PM Signed May 08, 2025 Reason for Appointment Patient presents with: Cyst: Cystoscopy. Denies s/s of UTI. C/o slow stream and not emptying bladder completely. RR HPI Blanca Noriega is a 59 year old adult who presents today for cystoscopy. Pre op dx: BPH with lower urinary tract symptoms Post op dx: Same Procedure: Flexible cystoscopy Description of procedure: The patient was taken to the procedure room and an appropriate informed consent was obtained. He was placed in the supine position on the procedure table and prepped in the usual fashion. 2% Xylocaine- jelly was instilled into the urethra in a retrograde fashion. The flexible cystoscope was inserted through the urethra into the bladder The entire bladder mucosa was scrutinized and there were no stones, tumors, or foreign bodies. The ureteral orifices were in their normal location and configuration. With retroflexion of the scope there was no evidence of pathology the bladder neck. As the scope was withdrawn the prostatic fossa was carefully evaluated and there was fairly minimal macroscopic BPH. The remainder of the urethra was normal. The patient tolerated the procedure well. BP 144/90 Pulse 71 Physical Exam UNIVERSAL PROTOCOL / SAFETY CHECKLIST Procedure to be Performed: cystoscopy Sign In: A Moment of CARE was completed. Appropriate PPE (Personal Protective Equipment) worn by all providers involved with the procedure. Special equipment not required. Patient/Surrogate Stated/Verified: Patient name, Date of , Relevant allergies, and The intended procedure Time Out: Relevant labs, photos, and/or imaging studies have been reviewed. Intended patient and procedure match the source document(s) (e.g. consent, HANDP, associated studies [imaging, pathology]) match the intended patient and procedure. Consent obtained and matches the intended procedure. Yes. Correct side/site is not applicable. Medications required for this procedure are verified. Fire risk assessed and is not applicable. Implants: are not applicable. Sign Out: Specimens N/A All instruments, equipment, possible retained foreign bodies are accounted for. Yes. The post-procedure plan of care has been communicated to the patient or surrogate. No follow-ups on file. Queta Nelson MD 05/08/2025 3:17 PM Signed May 08, 2025 Reason for Appointment Patient presents with: Cyst: Cystoscopy. Denies s/s of UTI. C/o slow stream and not emptying bladder completely. RR HPI Blanca Noriega is a 59 year old adult who presents today for a follow-up appointment and cystoscopy today. The patient continues to complain about obstructive lower urinary tract symptoms. He underwent an ultrasound which revealed some trabeculation of his bladder as well as a postvoid residual of 92 cc. His prostate was fairly small on the ultrasound. Current Medications mv-mins/folic/lycopen e/ginkgo (DAILY MULTIPLE FOR MEN 50+ ORAL)Take 1 tablet by mouth once daily.Disp: Rfl: Tadalafil (CIALIS) 5 mg tabletTake 1 tablet by mouth once daily.Disp: 30 tabletRfl: 11 KRILL OIL ORALTake by mouth.Disp: Rfl: PAST MEDICAL HISTORY Diagnosis Date Celiac disease (HCC) CPAP rhinitis Herpes zoster without complication History of chicken pox PAST SURGICAL HISTORY Procedure Laterality Date APPENDECTOMY VASECTOMY UNI/BI SPX W/POSTOP SEMEN EXAMS FAMILY HISTORY Problem Relation Age of Onset No Known Problems Mother Diabetes Father other (Kidney failure) Father other (Celiac disease) Brother No Known Problems Maternal Grandmother Social History Tobacco Use Smoking status: Never Smokeless tobacco: Never Vaping Use Vaping status: Never Used Substance Use Topics Alcohol use: No Drug use: No ALLERGIES Allergen Reactions Ciprofloxacin Other: See Comments Metronidazole Other: See Comments Objective BP 144/90 Pulse 71 Physical Exam Constitutional: Appearance: Normal appearance. Pulmonary: Effort: Pulmonary effort is normal. Neurological: Mental Status: Ezekiel is alert and oriented to person, place, and time. ASSESSMENT/PLAN: 1. Benign prostatic hyperplasia with weak urinary stream - ICD9: 600.01, 788.62, ICD10: N40.1, R39.12 The patient underwent cystoscopy which confirmed a fairly small prostate. He has tried tamsulosin twice in the past without good success. He would be a candidate for a UroLift. The patient did inquire about prostate artery embolization however I explained to him that I do not think that is really the best option for him. Ultimately though, (more content not included)... [facility] (UROUPD) BLANCA NORIEGA ([id number]) 1965 M Date Time Provider Department 04/12/25 QUETA NELSON During your visit today, we recorded the following information about you: Rachana Bloom 04/12/2025 9:04 AM Signed Pt called in asking for KBUS results. Next appt is 03/19/2026. Please advise BRAXTON Agarwal Derek J, AIR EXPORT COORDINATOR.ROOFING SUBCONTRACTOR 04/12/2025 9:08 AM Signed Ultrasound demonstrates signs of chronic bladder outlet obstruction and moderate post void residual. I would recommend we arrange for cystoscopy/TRUS for further evaluation. It appears he had discussed possible surgical intervention with Dr. Nelson, and this would be the next step in the process. Rachana Bloom 04/12/2025 10:49 AM Signed Tried to call pt to give results on KBUS and get scheduled for Cysto/Trus. Scheduled him for May 01 at 3:15pm Please make sure he gets results and this day/time works for him when he calls back BRAXTON Agarwal Ashley, MA 04/13/2025 10:08 AM Signed Also replied to patients [employer] message with information from STEPHANY Mesa Ashley, MA 04/17/2025 7:43 AM Signed Patient scheduled for Cysto Fatou Thornton MA Allergies As of Date: 04/12/2025 Noted Allergy Reaction CIPROFLOXACIN 08/13/2018 14 - Other: See Comments METRONIDAZOLE 08/13/2018 14 - Other: See Comments Date Reviewed: 03/14/2025 Reviewed by: Jessica Hawkins - Fully Assessed Prescriptions as of 04/17/2025 - KRILL OIL ORAL Take by mouth. Problem List As Of Date 04/12/2025 Noted Resolved Celiac disease [K90.0] 03/01/2021 Urinary (tract) obstruction [N13.9] 01/10/2015 11/17/2023 Difficulty urinating [R39.198] 03/01/2021 11/17/2023 History of chicken pox [Z86.19] 03/01/2021 Herpes zoster without complication [B02.9] 03/01/2021 Benign prostatic hyperplasia with weak urinary *07/01/2021 Retention of urine [R33.9] 01/08/2023 11/17/2023 Encounter Status:Closed by FATOU THORNTON on 04/13/25 [facility] CNPN Telephone (UROUPD) BLANCA NORIEGA ([id number]) 1965 M Date Time Provider Department 04/12/25 QUETA NELSON UROUPD During your visit today, we recorded the following information about you: Allergies As of Date: 04/12/2025 Noted Allergy Reaction CIPROFLOXACIN 08/13/2018 14 - Other: See Comments METRONIDAZOLE 08/13/2018 14 - Other: See Comments Date Reviewed: 03/14/2025 Reviewed by: Jessica Hawkins - Fully Assessed Prescriptions as of 04/12/2025 - KRILL OIL ORAL Take by mouth. Problem List As Of Date 04/12/2025 Noted Resolved Celiac disease [K90.0] 03/01/2021 Urinary (tract) obstruction [N13.9] 01/10/2015 11/17/2023 Difficulty urinating [R39.198] 03/01/2021 11/17/2023 History of chicken pox [Z86.19] 03/01/2021 Herpes zoster without complication [B02.9] 03/01/2021 Benign prostatic hyperplasia with weak urinary *07/01/2021 Retention of urine [R33.9] 01/08/2023 11/17/2023 Encounter Status:Closed by RACHANA BLOOM MA on 04/12/25 [facility] US KIDNEY/BLADDERon 04-06-20 US KIDNEY/BLADDER * * *Final Report* * * DATE OF EXAM: Apr 06 2025 8:18PM UDU 1055 - US KIDNEY/BLADDER / PROCEDURE REASON: Retention of urine * * * * Physician Interpretation * * * * EXAMINATION: RENAL ULTRASOUND CLINICAL HISTORY: Urinary retention. TECHNIQUE: Sonography of the kidneys and urinary bladder was performed. Images were obtained and stored in a permanent archive. MQ: [id number] COMPARISON: None RESULT: Right Kidney: -Renal length: 9.8 cm -Parenchyma: Normal parenchymal echogenicity. Normal parenchymal thickness. -Collecting system: No hydronephrosis. -Calculus: No echogenic, shadowing calculus. -Lesion: None. Left Kidney: -Renal length: 10.5 cm -Parenchyma: Normal parenchymal echogenicity. Normal parenchymal thickness. -Collecting system: No hydronephrosis. -Calculus: No echogenic, shadowing calculus. -Lesion: A lower pole cyst is noted measuring 0.8 x 0.9 x 0.7 cm. Bladder: The bilateral urinary there is circumferential mural thickening and trabeculation of the bladder. There is an elevated post void residual measuring 92 mL. Prostate volume is estimated at 20.6 mL. IMPRESSION: Circumferential bladder wall thickening and trabeculation with elevated post void residual measuring 91 mL. These findings raise concern for chronic bladder outlet obstruction. Prostate volume is estimated at 20.6 mL. Normal sonographic appearance of the kidneys. Manager Ent: PSCB Transcribe Date/Time: Apr 07 2025 11:22A Dictated by : EBONI GUILLEN MD This examination was interpreted and the report reviewed and electronically signed by: EBONI GUILLEN MD on Apr 07 2025 11:24AM EST [id number] [facility] (UROUPD ) BLANCA NORIEGA ([id number]) 1965 M Date Time Provider Department 03/14/25 8:00 AM QUETA NELSON UROUPD During your visit today, we recorded the following information about you: Pulse Blood pressure 61/minute 115/74 Queta Nelson MD 03/14/2025 8:46 AM Signed March 14, 2025 Reason for Appointment Patient presents with: Follow Up: 1 year labs. HPI Blanca Noriega is a 59 year old adult who presents today for a follow-up appointment. The patient continues to have intermittent lower urinary tract symptoms which appear to be obstructive. The patient notes that back in January he was having quite a bit of difficulty urinating however things are somewhat better now. The patient denies any gross hematuria or urinary infections in the interim. Current Medications KRILL OIL ORAL Take by mouth. PAST MEDICAL HISTORY Diagnosis Date Celiac disease (HCC) CPAP rhinitis Herpes zoster without complication History of chicken pox PAST SURGICAL HISTORY Procedure Laterality Date APPENDECTOMY VASECTOMY UNI/BI SPX W/POSTOP SEMEN EXAMS FAMILY HISTORY Problem Relation Age of Onset No Known Problems Mother Diabetes Father other (Kidney failure) Father other (Celiac disease) Brother No Known Problems Maternal Grandmother Social History Tobacco Use Smoking status: Never Smokeless tobacco: Never Vaping Use Vaping status: Never Used Substance Use Topics Alcohol use: No Drug use: No ALLERGIES Allergen Reactions Ciprofloxacin Other: See Comments Metronidazole Other: See Comments Objective BP 115/74 Pulse 61 SpO2 96% Physical Exam Constitutional: Appearance: Normal appearance. Pulmonary: Effort: Pulmonary effort is normal. Genitourinary: Comments: Prostate enlarged, no nodules, NT. Neurological: Mental Status: Ezekiel is alert and oriented to person, place, and time. ASSESSMENT/PLAN: 1. Benign prostatic hyperplasia with weak urinary stream - ICD9: 600.01, 788.62, ICD10: N40.1, R39.12 (primary diagnosis) The patient notes that he was having quite a bit of difficulty urinating about 2 months ago for about a week. He said that the symptoms have resolved however he still does not urinate normally. We had previously discussed having him undergo UroLift. The patient had numerous questions about this today. I explained to the patient that he really does need to avoid straining to urinate as this can lead to multiple other problems. Ultimately, we decided that we should get an up-to-date ultrasound to ensure that the patient is adequately emptying and has not developed hydronephrosis. We will plan to have him call for the results. The patient understands that he Apsley must call for the results and that he cannot assume no news is good news. Of note, his recent PSA was 1.88 ng/mL which is stable. - PROSTATE-SPECIFIC ANTIGEN DIAGNOSTIC 2. Retention of urine - ICD9: 788.20, ICD10: R33.9 See above - BASIC METABOLIC PANEL Queta Nelson MD Follow Up Return in about 1 year (around 03/14/2026). Allergies As of Date: 03/14/2025 Noted Allergy Reaction CIPROFLOXACIN 08/13/2018 14 - Other: See Comments METRONIDAZOLE 08/13/2018 14 - Other: See Comments Date Reviewed: 03/14/2025 Reviewed by: Jessica Hawkins - Fully Assessed Reason for Visit: Follow Up [171] Cmt: 1 year labs. Primary Visit Diagnosis:Benign prostatic hyperplasia with weak urinary stream [N40.1, R39.12] Other Visit Diagnosis:Retention of urine [R33.9] Order(s):PROSTATE-SPE CIFIC ANTIGEN DIAGNOSTIC [SQPSA] Order #: [id number] FUTURE BASIC METABOLIC PANEL [SQBMP] Order #: [id number] FUTURE KIDNEY/BLADDER [[id number]] Order #: [id number] FUTURE Prescriptions as of 03/14/2025 - KRILL OIL ORAL Take by mouth. Problem List As Of Date 03/14/2025 Noted Resolved Celiac disease [K90.0] 03/01/2021 Urinary (tract) obstruction [N13.9] 01/10/2015 11/17/2023 Difficulty urinating [R39.198] 03/01/2021 11/17/2023 History of chicken pox [Z86.19] 03/01/2021 Herpes zoster without complication [B02.9] 03/01/2021 Benign prostatic hyperplasia with weak urinary *07/01/2021 Retention of urine [R33.9] 01/08/2023 11/17/2023 Disposition: Return in about 1 year (around 03/14/2026) for u/s now - pt to call for results. Also 1 yr f/u with PSA and BMP prior. Follow-up and Disposition History for Encounter Date Provider Department Center 03/14/2025 [id number]-ZBZJRQUETA NELSON*UROD [facility] Encounter Status:Closed by QUETA NELSON on 03/14/25 [facility] Basic metabolic 2000 panelon 02-23-2025 Anion gap [Moles/Vol] 8 mmol/L Normal 8-15 [facility] Comment on above: Order Comment: Speci men Type: BLOOD SPECIMENOrdering Facility: [facility] Address: [address] [id number] Performed By: #### 2 4321-2, 2856-1 ####[facility]CL[facility] [id number] [place] [address] [place] Calcium [Mass/Vol] 8.7 mg/dL Normal 8.5-10.2 [facility] Comment on above: Order Comment: Speci men Type: BLOOD SPECIMENOrdering Facility: [facility] Address: [address] [place] [address] Performed By: #### 2 4321-2, 2856- ####[facility] LABIA [id number] [place] [address] [place] Chloride [Moles/Vol] 106 mmol/L Normal 98-107 [facility] Comment on above: Order Comment: Speci men Type: BLOOD SPECIMENOrdering Facility: [facility] Address: [address] [place] [address] Performed By: #### 2 1-2, 2856- ####[facility] LABIA [id number] [place] [address] [place] CO2 [Moles/Vol] 28 mmol/L Normal 22-30 [facility] Comment on above: Order Comment: Speci men Type: BLOOD SPECIMENOrdering Facility: [facility] Address: [address] [place] [address] Performed By: #### 2 4321-2, 2856-1 ####[facility]CLIA [id number] [place] [address] [place] Creatinine [Mass/Vol] 1.25 mg/dL High 0.73-1.22 [facility] Comment on above: Order Comment: Speci men Type: BLOOD SPECIMENOrdering Facility: [facility] Address: [address] [id number] Performed By: #### 2 4321-2, 2856-1 ####[facility] [id number] [place] [address] [place] Creatinine and Glomerular filtration rate.predicted panel (S/P/Bld) 66 mL/min/1.73m??? Normal >=60 [facility] Comment on above: Order Comment: Kimberley dickens Type: BLOOD SPECIMENOrdering Facility: [facility] Address: [address] [place] [address] Result Comment: Lindsey mated Glomerular Filtration Rate (eGFR) is calculated using the 2020 CKD-EPI creatinine equation. This equation utilizes serum creatinine, sex, and age as parameters. The creatinine assay has traceable calibration to isotope dilution-mass spectrometry. Refer to KDIGO guidelines for clinical interpretation. In patients with unstable renal function, e.g. those with acute kidney injury, the eGFR may not accurately reflect actual GFR. Performed By: #### 2 4321-2, 2856- ####[facility] [place] [place] [id number] [place] [address] [place] Glucose [Mass/Vol] 95 mg/dL Normal 74-99 [facility] Comment on above: Order Comment: Kimberley dickens Type: BLOOD SPECIMENOrdering Facility: [facility] Address: [address] [place] [address] Result Comment: The [place] Diabetes Association (ADA) provides guidance for cutoff values for fasting glucose and random glucose. The ADA defines fasting as no caloric intake for at least 8 hours. Fasting plasma glucose results between 100 to 125 mg/dL indicate increased risk for diabetes (prediabetes). Fasting plasma glucose results greater than or equal to 126 mg/dL meet the criteria for diagnosis of diabetes. In the absence of unequivocal hyperglycemia, results should be confirmed by repeat testing. In a patient with classic symptoms of hyperglycemia or hyperglycemic crisis, random plasma glucose results greater than or equal to 200 mg/dL meet the criteria for diagnosis of diabetes. Reference: Standards of Medical Care in Diabetes 2016, [place] Diabetes Association. Diabetes Care. 2016.39(Suppl 1). Performed By: #### 2 4321-2, 2856-1 ####[facility] LABIA [id number] [place] [address] [place] Potassium [Moles/Vol] 3.9 mmol/L Normal 3.7-5.1 [facility] Comment on above: Order Comment: Speci men Type: BLOOD SPECIMENOrdering Facility: [facility] Address: [address] [place], [place] [id number] Performed By: #### 2 4321-2, 2856-1 ####[facility] LABCLIA [id number] [place] [address] [place] Sodium [Moles/Vol] 142 mmol/L Normal 136-144 [facility] Comment on above: Order Comment: Speci men Type: BLOOD SPECIMENOrdering Facility: [facility] Address: [address] [place] [address] Performed By: #### 2 4321-2, 2856-1 ####[facility] LABIA [id number] [place] [address] [place] Urea nitrogen [Mass/Vol] 25 mg/dL High 9-24 [facility] Comment on above: Order Comment: Speci men Type: BLOOD SPECIMENOrdering Facility: [facility] Address: [address] [place] [address] Performed By: #### 2 4321-2, 2856-1 ####[facility] LABIA [id number] [place] [address] [place] [facility] Prostate specific Ag [Mass/Vol] 1.88 ng/mL Normal [facility] Comment on above: Order Comment: Speci men Type: BLOOD SPECIMENOrdering Facility: [facility] Address: [address] [place] [address] Performed By: #### 2 4321-2, 2856-1 ####[facility] LABIA [id number] [place] [address] [place] UA DIP, URINE (POC)on 2023 BILIRUBIN UA (POCT) Negative Negative [facility] CLARITY UA (POCT) Clear [facility] COLOR UA (POCT) Yellow [facility] GLUCOSE UA (POCT) Negative Negative mg/dL [facility] Hemoglobin Ql (U) Negative Negative [facility] KETONE UA (POCT) Negative Negative mg/dL [facility] LEUKOCYTES UA (POCT) Negative Negative [facility] NITRITE UA (POCT) Negative Negative [facility] PH UA (POCT) 6.0 4.5 - 8.0 [facility] Protein Ql (U) Negative Negative mg/dL [facility] SPECIFIC GRAVITY UA (POCT) >=1.030 1.005 - 1.030 [facility] UROBILINOGEN UA (POCT) 0.2 Normal E.U./dL [facility] Location:[facility] Urology, [address] [place] [address] Dr. Chu LL[address], [place], [place], [address] [place] [address] POINT OF CARE [facility] ic CNOVon 03-11-2023 CNOV Office Visit (TAMMYUPNE ) BLANCA NORIEGA ([id number]) 1965 M Date Time Provider Department 03/11/23 3:40 PM KRIS TELLEZ During your visit today, we recorded the following information about you: Temperature Pulse Respiration Blood pressure 97.5 degrees 68/minute 20/minute 128/78 Weight Height 81.6 kg 1.778 m Kris Tellez DO 03/11/2023 4:59 PM Signed Blanca Noriega is a 57 year old adult here today acutely because of having: Patient presents with: Allergies Patient complains of seasonal allergies. Has had allergy injections every May from age [age]. Then was ok taking OTC but doesn't seem to help anymore. This May it has gotten really bad with congestion, itchy watery eyes, runny nose. OTC- Claritin this week, not helping. Wants to discuss snoring. Wonders if it is related to the allergies. Review of Systems Constitutional: Negative for chills, fatigue and fever. HENT: Negative for congestion, ear pain and sore throat. Respiratory: Negative for cough, shortness of breath and wheezing. Cardiovascular: Negative for chest pain, palpitations and leg swelling. Gastrointestinal: Negative for abdominal pain, constipation, diarrhea, nausea and vomiting. Musculoskeletal: Negative for arthralgias, joint swelling and myalgias. Skin: Negative for color change and rash. Allergic/Immunologic: Positive for environmental allergies. Neurological: Negative for dizziness, numbness and headaches. Hematological: Does not bruise/bleed easily. Psychiatric/Behaviora l: Negative. Negative for dysphoric mood. All other systems reviewed and are negative. ACTIVE PROBLEM LIST Celiac Disease Urinary (Tract) Obstruction Difficulty Urinating Benign Prostatic Hyperplasia With Weak Urinary Stream Retention of Urine PAST SURGICAL HISTORY Procedure Laterality Date APPENDECTOMY VASECTOMY UNI/BI SPX W/POSTOP SEMEN EXAMS Social History Tobacco Use Smoking status: Never Smokeless tobacco: Never Vaping Use Vaping Use: Never used Substance Use Topics Alcohol use: No Drug use: No FAMILY HISTORY Problem Relation Age of Onset No Known Problems Mother Diabetes Father other (Kidney failure) Father other (Celiac disease) Brother No Known Problems Maternal Grandmother ALLERGIES Allergen Reactions Ciprofloxacin Other: See Comments Metronidazole Other: See Comments MEDICATIONS: Current Outpatient Medications Medication Sig Dispense Refill fluticasone (FLONASE) 50 mcg/actuation nasal spray Use 2 Sprays in each nostril daily at bedtime. 16 g 2 No current facility-administered medications for this visit. BP 128/78 (BP Site: Left Arm, BP Position: Sitting, BP Cuff Size: Regular Adult) Pulse 68 Temp 36.4 ?C (97.5 ?F) (Temporal) Resp 20 Ht 177.8 cm (5' 10) Wt 81.6 kg (180 lb) SpO2 100% BMI 25.83 kg/m? BMI 25.83 kg/(m2) Physical Exam Vitals reviewed. Constitutional: General: Ezekiel Noriega is not in acute distress. Appearance: Normal appearance. Ezekiel Noriega is well-developed. HENT: Head: Normocephalic and atraumatic. Right Ear: Tympanic membrane, ear canal and external ear normal. Left Ear: Tympanic membrane, ear canal and external ear normal. Nose: Congestion present. Right Turbinates: Swollen and pale. Left Turbinates: Swollen and pale. Mouth/Throat: Mouth: Mucous membranes are moist. Comments: Small posterior airway Eyes: General: No scleral icterus. Right eye: No discharge. Left eye: No discharge. Extraocular Movements: Extraocular movements intact. Conjunctiva/sclera: Conjunctivae normal. Cardiovascular: Rate and Rhythm: Regular rhythm. Pulmonary: Effort: Pulmonary effort is normal. No respiratory distress. Abdominal: General: Abdomen is flat. Musculoskeletal: Cervical back: Normal range of motion. Comments: Normal gait Skin: General: Skin is warm and dry. Neurological: General: No focal deficit present. Mental Status: Ezekiel Noriega is alert and oriented to person, place, and time. Cranial Nerves: No cranial nerve deficit. Psychiatric: Mood and Affect: Mood normal. Behavior: Behavior normal. Thought Content: Thought content normal. Judgment: Judgment normal. ASSESSMENT/PLAN: 1. Seasonal allergic rhinitis, unspecified trigger - ICD9: 477.9, ICD10: J30.2 (primary diagnosis) - TRIAMCINOLONE ACETONIDE 40 MG/ML SUSPENSION FOR INJECTION - FLUTICASONE PROPIONATE 50 MCG/ACTUATION NASAL SPRAY,SUSPENSION 2. Snoring - ICD9: 786.09, ICD10: R06.83 Encouraged to call if snoring not improved in 2 weeks to proceed with sleep study. Kris Tellez Portions of this note have been entered by ancillary staff. I have reviewed and when necessary edited, so that they are an adequate record of my encounter with this patient. Allergies As of Date: 03/11/2023 Noted Allergy Reaction CIPROFLOXACIN 08/13/2018 14 - Other: See Comments METR (more content not included)... Normal [facility] Basic metabolic 2000 panelon 03-02-2023 Anion gap [Moles/Vol] 19.3 mmol/L 15 - 22 mmol/L [facility] Calcium [Mass/Vol] 8.9 mg/dL 8.6 - 10. 0 mg/dL [facility] Chloride [Moles/Vol] 105 mmol/L 98 - 107 mmol/L [facility] CO2 [Moles/Vol] 23 mmol/L 22 - 29 mmol/L [facility] Creatinine [Mass/Vol] 1.20 mg/dL 0.70 - 1.20 mg/dL [facility] eGFR-All Other Races > 60 ml/Min/1.73m2 [facility]abella GFR/1.73 sq M.predicted among blacks MDRD (S/P/Bld) [Vol rate/Area] mL/min/{1.73_m2} [facility] Glucose [Mass/Vol] 93 mg/dL 74 - 106 mg/dL [facility] Potassium [Moles/Vol] 4.3 mmol/L 3.5 - 5.0 mmol/L [facility] Sodium [Moles/Vol] 143 mmol/L 135 - 145 mmol/L [facility] Urea nitrogen [Mass/Vol] 18 mg/dL 6 - 20 mg/dL [facility] PSA/PROSTSPECAG DIAGon 03-02 Prostate specific Ag [Mass/Vol] 1.7 ng/mL 0.0 - 2.6 ng/mL [facility] CNOVon 01-08-2023 CNOV Office Visit (UROUPD ) BLANCA NORIEGA ([id number]) 1965 M Date Time Provider Department 01/08/23 8:45 AM QUETA NELSON UROCYNTHIA During your visit today, we recorded the following information about you: Pulse Blood pressure Weight Height 62/minute 125/88 82.1 kg 1.778 m Queta Nelson MD 01/08/2023 9:22 AM Signed January 08, 2023 Reason for Appointment Patient presents with: Follow Up: Pt offers no complaints. HPI Blanca Noriega is a 57 year old adult who presents today for a follow-up appointment. The patient said that he has really reduced his caffeine consumption and feels like this has resulted in significant improvement in his urinary patterns. He said that he still has a fairly weak urinary stream but at this point he is satisfied with it. He denies any gross hematuria or urinary tract infections in the interim. He is not on any urinary medication. Current Medications Zinc 50 mg tab Take by mouth. folic acid/multivit-min/lut ein (CENTRUM SILVER ORAL) Take by mouth. PAST MEDICAL HISTORY Diagnosis Date Celiac disease Herpes zoster without complication History of chicken pox PAST SURGICAL HISTORY Procedure Laterality Date APPENDECTOMY VASECTOMY UNI/BI SPX W/POSTOP SEMEN EXAMS FAMILY HISTORY Problem Relation Age of Onset No Known Problems Mother Diabetes Father other (Kidney failure) Father other (Celiac disease) Brother No Known Problems Maternal Grandmother Social History Tobacco Use Smoking status: Never Smokeless tobacco: Never Vaping Use Vaping Use: Never used Substance Use Topics Alcohol use: No Drug use: No ALLERGIES Allergen Reactions Ciprofloxacin Other: See Comments Metronidazole Other: See Comments Objective BP 125/88 Pulse 62 Ht 5' 10 (1.78m) Wt 181 lb (82.1kg) SpO2 98% BMI 25.97 kg/(m2). Physical Exam Constitutional: Appearance: Normal appearance. Pulmonary: Effort: Pulmonary effort is normal. Neurological: Mental Status: Ezekiel Noriega is alert and oriented to person, place, and time. ASSESSMENT/PLAN: 1. Benign prostatic hyperplasia with weak urinary stream - ICD9: 600.01, 788.62, ICD10: N40.1, R39.12 (primary diagnosis) The patient feels like he is doing okay with regard to urination and is not interested in any medical therapy or intervention. We will however continue to follow him fairly closely. We will see him back in 6 months with a PSA prior to the visit. We will plan to recheck his postvoid residual at that time. We will also keep an eye on his renal function with a BMP prior to that visit. - PSA/PROSTSPECAG DIAG 2. Retention of urine - ICD9: 788.20, ICD10: R33.9 See above - BASIC METABOLIC PNL Queta Nelson MD Follow Up Return in about 6 months (around 07/11/2023) for PVR, labs prior. Referring Provider: SELF [200] Allergies As of Date: 01/08/2023 Noted Allergy Reaction CIPROFLOXACIN 08/13/2018 14 - Other: See Comments METRONIDAZOLE 08/13/2018 14 - Other: See Comments Date Reviewed: 01/08/2023 Reviewed by: Eugenia Amaya - Fully Assessed Reason for Visit: Follow Up [171] Cmt: Pt offers no complaints. Primary Visit Diagnosis:Benign prostatic hyperplasia with weak urinary stream [N40.1, R39.12] Other Visit Diagnosis:Retention of urine [R33.9] Order(s):PSA/PROSTSPE CAG DIAG [SQPSA] Order #: [id number] FUTURE BASIC METABOLIC PNL [SQBMP] Order #: [id number] FUTURE Prescriptions as of 01/08/2023 - Zinc 50 mg tab Take by mouth. - folic acid/multivit-min/lut ein (CENTRUM SILVER ORAL) Take by mouth. Problem List As Of Date 01/08/2023 Noted Resolved Celiac disease [K90.0] 03/01/2021 Urinary (tract) obstruction [N13.9] 01/10/2015 Difficulty urinating [R39.198] 03/01/2021 History of chicken pox [Z86.19] 03/01/2021 Herpes zoster without complication [B02.9] 03/01/2021 Benign prostatic hyperplasia with weak urinary *07/01/2021 Retention of urine [R33.9] 01/08/2023 Disposition: Return in about 6 months (around 07/11/2023) for PVR, labs prior. Follow-up and Disposition History for Encounter Date Provider Department Center 01/08/2023 [id number]-YIRFOQUETA NELSON*UROUPD [facility] Encounter Status:Closed by QUETA NELSON on 01/08/23 [facility] CNOVon 09-03-2022 CNOV Office Visit (FMUPNE ) LEANNBLANCA ([id number]) 1965 M Date Time Provider Department 09/03/22 9:40 AM KRIS TELLEZ During your visit today, we recorded the following information about you: Temperature Pulse Respiration Blood pressure 97 degrees 82/minute 18/minute 126/72 Weight Height 82.4 kg 1.778 m Kris Tellez DO 09/03/2022 11:04 AM Signed Blanca Noriega is a 56 year old adult here today acutely because of having: Patient presents with: Sore Throat Patient complains of a sore throat since Thursday. No fever, sinus congestion. A little unproductive cough. Hoarse voice. Hot tea with honey and apple cider vinegar. OTC-nothing. Review of Systems Constitutional: Negative for chills, fatigue and fever. HENT: Positive for sore throat. Negative for congestion and ear pain. Respiratory: Negative for cough, shortness of breath and wheezing. Cardiovascular: Negative for chest pain, palpitations and leg swelling. Gastrointestinal: Negative for abdominal pain, constipation, diarrhea, nausea and vomiting. Musculoskeletal: Negative for arthralgias, joint swelling and myalgias. Skin: Negative for color change and rash. Neurological: Negative for dizziness, numbness and headaches. Hematological: Does not bruise/bleed easily. Psychiatric/Behaviora l: Negative. Negative for dysphoric mood. All other systems reviewed and are negative. ACTIVE PROBLEM LIST Celiac Disease Urinary (Tract) Obstruction Difficulty Urinating Benign Prostatic Hyperplasia With Weak Urinary Stream PAST SURGICAL HISTORY Procedure Laterality Date APPENDECTOMY VASECTOMY UNI/BI SPX W/POSTOP SEMEN EXAMS Social History Tobacco Use Smoking status: Never Smokeless tobacco: Never Vaping Use Vaping Use: Never used Substance Use Topics Alcohol use: No Drug use: No FAMILY HISTORY Problem Relation Age of Onset No Known Problems Mother Diabetes Father other (Kidney failure) Father other (Celiac disease) Brother No Known Problems Maternal Grandmother ALLERGIES Allergen Reactions Ciprofloxacin Other: See Comments Metronidazole Other: See Comments MEDICATIONS: Current Outpatient Medications Medication Sig Dispense Refill Zinc 50 mg tab Take by mouth. folic acid/multivit-min/lut ein (CENTRUM SILVER ORAL) Take by mouth. No current facility-administered medications for this visit. BP 126/72 (BP Site: Left Arm, BP Position: Sitting, BP Cuff Size: Regular Adult) Pulse 82 Temp 36.1 ?C (97 ?F) Resp 18 Ht 177.8 cm (5' 10) Wt 82.4 kg (181 lb 11.2 oz) SpO2 98% BMI 26.07 kg/m? BMI 26.07 kg/(m2) Physical Exam Vitals reviewed. Constitutional: General: Ezekiel Noriega is not in acute distress. Appearance: Normal appearance. Ezekiel Noriega is well-developed. HENT: Head: Normocephalic and atraumatic. Right Ear: External ear normal. Left Ear: External ear normal. Nose: Congestion present. Mouth/Throat: Mouth: Mucous membranes are moist. Pharynx: Posterior oropharyngeal erythema present. Eyes: General: No scleral icterus. Right eye: No discharge. Left eye: No discharge. Extraocular Movements: Extraocular movements intact. Conjunctiva/sclera: Conjunctivae normal. Cardiovascular: Rate and Rhythm: Regular rhythm. Pulmonary: Effort: Pulmonary effort is normal. No respiratory distress. Abdominal: General: Abdomen is flat. Musculoskeletal: Cervical back: Normal range of motion. Comments: Normal gait Skin: General: Skin is warm and dry. Neurological: General: No focal deficit present. Mental Status: Ezekiel Noriega is alert and oriented to person, place, and time. Cranial Nerves: No cranial nerve deficit. Psychiatric: Mood and Affect: Mood normal. Behavior: Behavior normal. Thought Content: Thought content normal. Judgment: Judgment normal. ASSESSMENT/PLAN: 1. Pharyngitis, unspecified etiology - ICD9: 462, ICD10: J02.9 - suspect viral - Alere Strep Test neg, no culture pending - Discussed supportive care treatment with fluids, rest and analgesia. - The patient may also use warm salt water gargles, throat lozenges and/or OTC throat spray as needed. - The patient should follow up in 3-5 days if symptoms persist or worsen - FLU A/B B/O - STREP A MOLECULAR (POC) Kris Tellez Portions of this note have been entered by ancillary staff. I have reviewed and when necessary edited, so that they are an adequate record of my encounter with this patient. Allergies As of Date: 09/03/2022 Noted Allergy Reaction CIPROFLOXACIN 08/13/2018 14 - Other: See Comments METRONIDAZOLE 08/13/2018 14 - Other: See Comments Date Reviewed: 09/03/2022 Reviewed by: Kris Tellez DO - Fully Assessed Reason for Visit: Sore Throat [200] Primary Visit Diagnosis:Pharyngitis , unspecified etiology [J02.9] Order(s):FLU A/B B/O [[id number]] Order #: [id number] STREP A MO (more content not included)... Normal [facility] CNOVon 07-10-2022 CNOV Office Visit (UROUPD ) BLANCA NORIEGA ([id number]) 1965 M Date Time Provider Department 07/10/22 12:45 PM QUETA NELSON During your visit today, we recorded the following information about you: Pulse Blood pressure Weight Height 71/minute 107/70 80.7 kg 1.778 m Queta Nelson MD 07/10/2022 1:31 PM Signed July 10, 2022 Reason for Appointment Patient presents with: Follow Up: UDS follow up. He states it was painful the first few days after the UDS but no issues now. HPI Blanca Noriega is a 56 year old adult who presents today for a follow-up appointment to discuss the results of his recent urodynamics testing. The patient did have some pain following the testing but overall is doing fairly well. The urodynamics really were consistent with an obstructive pattern however the patient also did appear to have a fairly small capacity bladder with some overactivity. Clinically though the patient complains about incomplete emptying. He notes that he has a very weak urinary stream. He also has hesitancy but the thing that bothers him the most is the incomplete emptying. Current Medications folic acid/multivit-min/lut ein (CENTRUM SILVER ORAL) Take by mouth. PAST MEDICAL HISTORY Diagnosis Date Celiac disease Herpes zoster without complication History of chicken pox PAST SURGICAL HISTORY Procedure Laterality Date APPENDECTOMY VASECTOMY UNI/BI SPX W/POSTOP SEMEN EXAMS FAMILY HISTORY Problem Relation Age of Onset No Known Problems Mother Diabetes Father other (Kidney failure) Father other (Celiac disease) Brother No Known Problems Maternal Grandmother Social History Tobacco Use Smoking status: Never Smokeless tobacco: Never Vaping Use Vaping Use: Never used Substance Use Topics Alcohol use: No Drug use: No ALLERGIES Allergen Reactions Ciprofloxacin Other: See Comments Metronidazole Other: See Comments Objective BP 107/70 Pulse 71 Ht 5' 10 (1.78m) Wt 178 lb (80.7kg) SpO2 99% BMI 25.54 kg/(m2). Physical Exam Constitutional: Appearance: Normal appearance. Pulmonary: Effort: Pulmonary effort is normal. Neurological: Mental Status: Ezekiel Noriega is alert and oriented to person, place, and time. ASSESSMENT/PLAN: 1. Benign prostatic hyperplasia with weak urinary stream - ICD9: 600.01, 788.62, ICD10: N40.1, R39.12 The patient has just modest enlargement of the prostate however he appears to have obstructive pattern. He did not get much response with tamsulosin. We discussed the option of UroLift versus laser ablation of the prostate again. I told him that my strongest recommendation would be to proceed with the UroLift. I went over this option in detail with him today. We discussed the potential risks including failure to improve his symptoms, worsening urgency and frequency, pain, bleeding, infection, the need for additional procedures, and injury to the urethra, prostate, bladder, or adjacent structures. The patient ultimately said that he is going to have to carefully consider this option. For now he only wanted to schedule a follow-up in 6 months. Queta Nelson MD Follow Up Return in about 6 months (around 01/07/2023). Referring Provider: SELF [[id number]] Allergies As of Date: 07/10/2022 Noted Allergy Reaction CIPROFLOXACIN 08/13/2018 14 - Other: See Comments METRONIDAZOLE 08/13/2018 14 - Other: See Comments Date Reviewed: 07/10/2022 Reviewed by: Sherry Cabral MA - Fully Assessed Reason for Visit: Follow Up [171] Cmt: UDS follow up. He states it was painful the first few days after the UDS but no issues now. Primary Visit Diagnosis:Benign prostatic hyperplasia with weak urinary stream [N40.1, R39.12] Prescriptions as of 07/10/2022 - folic acid/multivit-min/lut ein (CENTRUM SILVER ORAL) Take by mouth. Problem List As Of Date 07/10/2022 Noted Resolved Celiac disease [K90.0] 03/01/2021 Urinary (tract) obstruction [N13.9] 01/10/2015 Difficulty urinating [R39.198] 03/01/2021 History of chicken pox [Z86.19] 03/01/2021 Herpes zoster without complication [B02.9] 03/01/2021 Benign prostatic hyperplasia with weak urinary *07/01/2021 Disposition: Return in about 6 months (around 01/07/2023). Follow-up and Disposition History for Encounter Date Provider Department Center 07/10/2022 [id number] NELSONUROUPD [facility] Encounter Status:Closed by QUETA NELSON on 07/10/22 [facility] CNOVon 06-25-2022 CN Office Visit (UROUPD ) BLANCA NORIEGA ([id number]) 1965 M Date Time Provider Department 06/25/22 8:30 AM QUETA NELSON UROCYNTHIA During your visit today, we recorded the following information about you: Sandy Yoon 06/25/2022 10:23 AM Signed Please see printed report. Pt states if he gets urinary urgency and he is in the car, he can hold it without leaking. During UDS, he was unable to Hold his urine. Sandy Nelson MD 06/25/2022 11:32 AM Signed Uroflowmetry revealed a maximum flow rate of 7.6 mL/s. The patient voided 116 mL with a postvoid residual of 220 mL. Filling cystometry revealed severe overactivity which produced urgency and urge incontinence. We were able to fill him to 290 mL. Pressure flow testing is difficult to interpret. His maximum flow rate was not calculated correctly. Patient voided 177 mL with a calculated residual of 103 mL however the patient did lose some of the volume with incontinence. His maximum detrusor pressure was 89.6 cm of water. In summary, the patient certainly has an obstructive pattern based on his uroflow. He does not have a neurogenic bladder. He does seem to have somewhat of a small capacity bladder. Clinical correlation will be required. Referring Provider: SELF [200] Allergies As of Date: 06/25/2022 Noted Allergy Reaction CIPROFLOXACIN 08/13/2018 14 - Other: See Comments METRONIDAZOLE 08/13/2018 14 - Other: See Comments Date Reviewed: 06/25/2022 Reviewed by: Sandy Yoon - Fully Assessed Reason for Visit: Follow Up [171] Cmt: UDS Primary Visit Diagnosis:Benign prostatic hyperplasia with weak urinary stream [N40.1, R39.12] Order(s):UA DIP, URINE (POC) [[id number]] Order #: [id number] UA DIP, URINE (POC) [[id number]] Order #: [id number] #:[id number] Prescriptions as of 06/25/2022 - folic acid/multivit-min/lut ein (CENTRUM SILVER ORAL) Take by mouth. Problem List As Of Date 06/25/2022 Noted Resolved Celiac disease [K90.0] 03/01/2021 Urinary (tract) obstruction [N13.9] 01/10/2015 Difficulty urinating [R39.198] 03/01/2021 History of chicken pox [Z86.19] 03/01/2021 Herpes zoster without complication [B02.9] 03/01/2021 Benign prostatic hyperplasia with weak urinary *07/01/2021 Visit Notes: >> Sandy Yoon Wed Jun 25, 2022 10:09 AM Status: Signed Please see printed report. Pt states if he gets urinary urgency and he is in the car, he can hold it without leaking. During UDS, he was unable to Hold his urine. Sandy Yoon Disposition: Return for As scheduled. Follow-up and Disposition History for Encounter Date Provider Department Center 06/25/2022 [id number] NELSON [facility] Encounter Status:Closed by QUETA NELSON on 06/25/22 [facility] CNOVon 06-19-2022 CNOV Office Visit (UROUPD ) BLANCA NORIEGA ([id number]) 1965 M Date Time Provider Department 06/19/22 8:00 AM QUETA NELSON During your visit today, we recorded the following information about you: Pulse Blood pressure Weight Height 74/minute 113/77 80.7 kg 1.778 m Sherry Cabral MA 06/19/2022 9:17 AM Signed Ultrasound PVR Volume: 182ml Time: STEPHANY Collado MD 06/19/2022 9:17 AM Signed June 19, 2022 Reason for Appointment Patient presents with: Follow Up: 10 month follow up. PSA not done. States he stopped taking Tamsulosin in January because he didn't feel it was effective. He has been drinking extra water and feels that helps. HPI Blanca Noriega is a 56 year old adult who presents today for a follow-up appointment. Unfortunately, the patient did not get a PSA prior to today's visit. He said that he stopped the tamsulosin because he really did not feel like it was helping him all that much however he continues to complain about obstructive symptoms including hesitancy, incomplete emptying, a diminished force of stream, and intermittency. He denies any gross hematuria or urinary tract infections. Current Medications folic acid/multivit-min/lut ein (CENTRUM SILVER ORAL) Take by mouth. PAST MEDICAL HISTORY Diagnosis Date Celiac disease Herpes zoster without complication History of chicken pox PAST SURGICAL HISTORY Procedure Laterality Date APPENDECTOMY VASECTOMY UNI/BI SPX W/POSTOP SEMEN EXAMS FAMILY HISTORY Problem Relation Age of Onset No Known Problems Mother Diabetes Father other (Kidney failure) Father other (Celiac disease) Brother No Known Problems Maternal Grandmother Social History Tobacco Use Smoking status: Never Smokeless tobacco: Never Vaping Use Vaping Use: Never used Substance Use Topics Alcohol use: No Drug use: No ALLERGIES Allergen Reactions Ciprofloxacin Other: See Comments Metronidazole Other: See Comments Objective BP 113/77 Pulse 74 Ht 5' 10 (1.78m) Wt 178 lb (80.7kg) SpO2 97% BMI 25.54 kg/(m2). Physical Exam Constitutional: Appearance: Normal appearance. Pulmonary: Effort: Pulmonary effort is normal. Genitourinary: Comments: The prostate is moderately enlarged, there is no nodularity or tenderness. Neurological: Mental Status: Ezekiel Noriega is alert and oriented to person, place, and time. ASSESSMENT/PLAN: 1. Benign prostatic hyperplasia with weak urinary stream - ICD9: 600.01, 788.62, ICD10: N40.1, R39.12 The patient continues to have obstructive lower urinary tract symptoms and his postvoid residual is moderately elevated. We again discussed the option of the UroLift and went over the risks and benefits in detail. The patient is still reluctant to undergo the procedure. Ultimately I recommended that we proceed with urodynamics testing to further evaluate his bladder function and degree of obstruction. This will allow us to better predict his response to UroLift or other ablative prostate procedure. We went over this testing in detail. He will get a PSA in the interim. - UA DIP, URINE (POC) - PSA/PROSTSPECAG DIAG - UA WITH CULTURE IF INDICATED Queta Nelson MD Follow Up No follow-ups on file. Referring Provider: SELF [200] Allergies As of Date: 06/19/2022 Noted Allergy Reaction CIPROFLOXACIN 08/13/2018 14 - Other: See Comments METRONIDAZOLE 08/13/2018 14 - Other: See Comments Date Reviewed: 02/18/2022 Reviewed by: Kris Tellez, - Fully Assessed Reason for Visit: Follow Up [171] Cmt: 10 month follow up. PSA not done. States he stopped taking Tamsulosin in January because he didn't feel it was effective. He has been drinking extra water and feels that helps. Primary Visit Diagnosis:Benign prostatic hyperplasia with weak urinary stream [N40.1, R39.12] Order(s):UA DIP, URINE (POC) [[id number]] Order #: [id number]. #:[id number] UA DIP, URINE (POC) [[id number]] Order #: [id number] PSA/PROSTSPECAG DIAG [SQPSA] Order #: [id number] FUTURE UA WITH CULTURE IF INDICATED [SQUACII] Order #: [id number] FUTURE Prescriptions as of 06/19/2022 - folic acid/multivit-min/lut ein (CENTRUM SILVER ORAL) Take by mouth. Problem List As Of Date 06/19/2022 Noted Resolved Celiac disease [K90.0] 03/01/2021 Urinary (tract) obstruction [N13.9] 01/10/2015 Difficulty urinating [R39.198] 03/01/2021 History of chicken pox [Z86.19] 03/01/2021 Herpes zoster without complication [B02.9] 03/01/2021 Benign prostatic hyperplasia with weak urinary *07/01/2021 Disposition: Return for UDS, UA and PSA prior. Follow-up and Disposition History for Encounter Date Provider Department Center 06/19/2022 [id number] NELSON*[facility] Encounter Status:Closed by QUETA NELSON on 06/19/22 Normal [facility] UA W/C&Son 06-19-2022 Bilirubin Ql (U) Negative Normal NEGATIVE [facility] Comment on above: Performed By: #### L 200.3001 #### [facility] - LABORATORY [address] [place] [address]223 Color (U) YELLOW Normal YELLOW [facility] Comment on above: Performed By: #### L 200.3001 #### [facility] - LABORATORY [address] [place] [address] 02937 Glucose Ql (U) Negative Normal NEGATIVE [facility] Comment on above: Performed By: #### L 200.3001 #### [facility] - LABORATORY [address] [place] [address] 44589 Hemoglobin Ql (U) Negative Normal NEGATIVE [facility] Comment on above: Performed By: #### L 200.3001 #### [facility] - LABORATORY [address] [place] [address] 02452 Leukocyte esterase Test strip Ql (U) Negative Normal NEGATIVE [facility] Comment on above: Performed By: #### L 200.3001 #### [facility] - LABORATORY [address] [place] [address] 22148 Nitrite Ql (U) Negative Normal NEGATIVE [facility] Comment on above: Performed By: #### L 200.3001 #### [facility] - LABORATORY [address] [place] [address] 20452 pH (U) 7.0 [pH] Normal 5.0-8.0 [facility] Comment on above: Performed By: #### L 200.3001 #### [facility] - LABORATORY [address] [place] [address] 57152 Protein Ql (U) Negative Normal NEGATIVE [facility] Comment on above: Performed By: #### L 200.3001 #### [facility] - LABORATORY [address] [place] [address] 72414 URINE APPEARANC CLEAR Normal CLEAR [facility] Comment on above: Performed By: #### L 200.3001 #### [facility] - LABORATORY [address] [place] [address] 71997 URINE KETONE Negative Normal NEGATIVE [facility] Comment on above: Performed By: #### L 200.3001 #### [facility] - LABORATORY [address] [place] [address] 80456 URINE SPECIFIC 1.020 Normal 1.001-1.035 [facility] Comment on above: Performed By: #### L 200.3001 #### [facility] - LABORATORY [address] [place] [address] 62037 URINE UROBILINO 0.2 EU/DL Normal 0.2-1.0 [facility] Comment on above: Performed By: #### L 200.3001 #### [facility] - LABORATORY [address] [place] [address] 25884 SARS-CoV-2 IgGon 09-23-2021 SARS-CoV-2 (COVID-19) IgG Ab [Presence] in Serum or Plasma by Immunoassay 0.400 S/CO Normal Non-Reacitve [facility] Comment on above: Result Comment: Expe cted Values: < 0.805 S/CO: Non-Reactive for SARS-CoV-2 IgG antibodies. 0.805 to 0.995 S/CO: Equivocal for SARS-CoV-2 IgG.* *Collect a new sample one or two weeks later and retest. > 0.995 S/CO: Reactive for SARS-CoV-2 IgG antibodies. Methodology:Chemiluminescent Immunoassay This SARS-CoV-2 IgG Test was developed and its performance characteristics determined by [employer]. This test has not been FDA cleared or approved. This test has been authorized by FDA under an Emergency Use Authorization (EUA). This test is only authorized for the duration of time the declaration that circumstances exist justifying the authorization of the emergency use of in vitro diagnostic tests for detection of SARS-CoV-2 IgG antibodies and/or diagnosis of COVID-19 infection under section 564(b)(1) of the Act, 21 U.S.C. 360bbb-3(b)(1), unless the authorization is terminated or revoked sooner. The Access SARS-CoV-2 IgG assay is intended for use as an aid in identifying patients with an adaptive immune response to SARS-CoV-2, indicating recent or prior infection. At this time, it is unknown for how long antibodies persist following infection and if the presence of antibodies confers protective immunity. The Access SARS-CoV-2 IgG assay should not be used to diagnose or exclude acute SARS-CoV-2 infection. Results are for the detection of SARS CoV-2 antibodies. IgG antibodies to SARS-CoV-2 are generally detectable in blood several days after initial infection, although the duration of time antibodies are present post-infection is not well characterized. Patients may have detectable virus present for several weeks following seroconversion. The sensitivity of the Access SARS-CoV-2 IgG assay early after infection is unknown. Negative results do not preclude acute SARS-CoV-2 infection. If acute infection is suspected, direct testing for SARS-CoV-2 is necessary. Positive results may be due to past or present infection with ajy-GVSZ-[id number]-2 coronavirus strains, such as coronavirus HKU1, NL63, OC43, or 229E. Performed By: #### S ARS-CoV-2 IgG #### Main Lab - [place] [address] Surgery Office/Clinic Noteon 04-03-2020 Surgery Office/Clinic Note This is a Telephone Appointment *The patient received the Telehealth Consent for Treatment for Telephone appointment via email, unless otherwise documented in the note. Patient verbalizes consent for treatment via telephone and has reviewed the consent in full. The patient understands their rights, the HIPAA risks and that they will be charged accordingly for the services rendered. Chief Complaint Patient to discuss Colonoscopy. History of Present Illness 54 year old male, patient of Dr. Kris Tellez ([place], [place]). Patient had an appointment on 11/14/2019 to discuss repeating colonoscopy. No medication or health changes since he was last seen in the office.Denies BRBPR, changes in bowels. Thinks he may have a hemorrhoid but denies pain. Last Note: Patient here to discuss repeat colonoscopy. Last colonoscopy performed 03/23/2015. Findings include a tubular adenoma polyp in the transverse colon. Patient denies any changes in bowel habits. No family history of colon cancer or polyps. Review of Systems Constitutional: No fevers, chills, sweats, weight loss or weight gain Respiratory: No shortness of breath, cough Cardiovascular: No chest pain, palpitations, syncope, no angina, no atrial fibrillation Gastrointestinal: No nausea, vomiting, diarrhea, no swallowing difficulties Liver: No jaundice, hepatitis Genitourinary: No hematuria, no kidney problems Hematologic: Never been transfused, no bleeding disorders Neuro: Denies strokes, TIA, seizures As reviewed in the HPI. All other systems reviewed are negative or normal. Physical Exam Vitals & Measurements Estimated Temperature:not available Height:178cm Weight:78.01kg General: No audible acute distress. Normal conversant. Alert and oriented x 4. Attentive and appropriate. Asks appropriate questions. No gross deficits in reasoning memory or intellect. Respiratory: No audible labored breathing. No audible wheezing or stridor noted. Assessment/Plan 1. Colon polyp: tubular adenoma (2014) Will schedule for colonoscopy. Risks, benefits, and alternatives of colonoscopy discussed at length with the patient. Risks include but are not limited to the risk of anesthesia, bleeding, infection, injury to the colon, missed lesion, incomplete procedure, need for further procedures, pain, bloating. Patient understands and wishes to proceed. Call with questions, concerns, changes in symptoms. Today's visit was performed via telehealth and utilized an audio only connection. Duration of the visit in conversation with the patient below: 11min Physician Comments I spoke with patient over telemedicine phone for 11 minutes. I spent over 50% of that time educating, counseling and or discussing coordination of care. We discussed in depth the testing and treatment of *colon health* particularly in the setting of symptoms. Patient received consent for treatment upon accepting telemedicine invite and consents/agrees to receive treatment via telehealth communications. Problem List/Past Medical History Ongoing BPH - benign prostatic hyperplasia Celiac disease Colon polyp: tubular adenoma (2014) Procedure/Surgical History Appendectomy Vasectomy Surgical excision of plantar wart (1993) Colonoscopy (03/23/2015) Medications multivitamin, Oral, Daily Allergies No Known Allergies Social History Alcohol Never Substance Abuse Denies All Tobacco Never (less than 100 in lifetime) Use:. Family History Heart disease: Father. Kidney disease: Father. No known problems: Mother. Skin cancer: Father. Thyroid: Father. Health Maintenance Colonoscopy 03/23/2015 Lab Results No qualifying data available. Electronically signed by Baylee Boykin PA-C 04/03/20 10:28 EDT Electronically signed by Xiomy Silva 03/29/2020 11:43 EDT Normal [facility] Surgery Office/Clinic Noteon 11-14-2019 Surgery Office/Clinic Note Chief Complaint Patient presents for colonoscopy consultation. History of Present Illness 54 year old male, patient of Dr. Kris Tellez ([place], [place]) Patient here to discuss repeat colonoscopy. Last colonoscopy performed 03/23/2015. Findings include a tubular adenoma polyp in the transverse colon. Patient denies any changes in bowel habits. No family history of colon cancer or polyps. Review of Systems Constitutional: No fevers, chills, sweats, weight loss or weight gain Respiratory: No shortness of breath, cough Cardiovascular: No chest pain, palpitations, syncope, no angina, no atrial fibrillation Gastrointestinal: No nausea, vomiting, diarrhea, no swallowing difficulties Liver: No jaundice, hepatitis Genitourinary: No hematuria, no kidney problems Hematologic: Never been transfused, no bleeding disorders Neuro: Denies strokes, TIA, seizures As reviewed in the HPI. All other systems reviewed are negative or normal. Physical Exam Vitals & Measurements HT: 178 cm WT: 78.01 kg BMI: 24.62 Gen: Awake, alert Lungs: non-labored respiration Assessment/Plan 1. Personal history of colonic polyps Will repeat colonoscopy Problem List/Past Medical History Ongoing BPH - benign prostatic hyperplasia Celiac disease Colon polyp: tubular adenoma (2014) Procedure/Surgical History Appendectomy Vasectomy Surgical excision of plantar wart (1993) Colonoscopy (03/23/2015) Medications multivitamin Allergies No Known Allergies Social History Alcohol Never Substance Abuse Denies All Tobacco Never (less than 100 in lifetime) Use:. Family History Heart disease: Father. Kidney disease: Father. No known problems: Mother. Skin cancer: Father. Thyroid: Father. Health Maintenance Colonoscopy 03/23/2015 Electronically signed by Hosea Ortega MD 11/15/19 20:21 EST Electronically signed by Fatou Cox 11/03/2019 09:02 EST Normal [facility] Ambulatory Patient Education on 11-03-2019 Ambulatory Patient Education Patient Education Materials Name: Blanca Noriega Current Date: 11/03/2019 09:02:31 [facility] : 1965 The following sheet(s) are the Patient Education Leaflets for Blanca Noriega Radiology Colonoscopy A camera attached to a flexible tube with a viewing lens is used to take video pictures. Colonoscopy?is a test to view the inside of your lower digestive tract (colon and rectum).?Sometimes it can show the last part of the small intestine (ileum).?During the test, small pieces of tissue may be removed for testing. This is called a biopsy. Small growths, such as polyps, may also be removed.? Why is colonoscopy done? The test is done to help look for colon cancer. And it can help find the source of abdominal pain,?bleeding,?and changes in bowel habits. It may be needed once a year to every 10 years, depending on factors such as your: ?Age ?Health history ?Family health history ?Symptoms ?Results from any prior colonoscopy Risks and possible complications These include: ?Bleeding?A puncture or tear in the colon? ?Risks of anesthesia ?A cancer lesion not being seen or fully removed Getting ready? To prepare for the test: ?Talk with your healthcare provider about the risks of the test (see below). Also ask your healthcare provider about alternatives to the test. ?Tell your healthcare provider about any medicines and supplements you take. Also?tell him or her about any health conditions you may have. ?Make sure your rectum and colon are empty for the test. Follow the diet and bowel prep instructions exactly. If you don?t, the test may need to be rescheduled. ?Plan for a friend or family member to drive you home after the test. Colonoscopy provides an inside view of the entire colon. You may discuss the results with your doctor right away or at a future visit. During the test? The test is usually done in the hospital on an outpatient basis. This means you go home the same day. The procedure takes about 30?minutes. During that time: ?You are given relaxing (sedating) medicine through an IV line.?You may be drowsy, or fully asleep. ?The healthcare provider will first give you a physical exam to check for anal and?rectal problems. ?Then the anus is lubricated and the scope inserted. ?If you are awake, you may have a feeling similar to needing to have a bowel?movement. You may also feel pressure as air is pumped into the colon. It?s?OK to pass gas during the procedure. ?Biopsy, polyp removal, or other treatments may be done during the test. After the test? You may have gas right after the test. It can help to try to pass it to help prevent later bloating. Your healthcare provider may discuss the results with you right away. Or you may need to schedule a follow-up visit to talk about the results. After the test, you can go back to your normal eating and?other activities. You may be tired from the sedation and need to rest for a few hours. Discuss your medications with your provider to understand if your medicines can be restarted right away or not. ? [id number] [employer]. [address] [place] [address], [place] [address]. All rights reserved. This information is not intended as a substitute for professional medical care. Always follow your healthcare professional's instructions. Normal [facility] Vital Signs Date Time Vital Sign Value Performing Clinician Dorothy padilla 06-19-2025 09:20-0400 Diastolic blood pressure 74 mm[Hg] Queta Nelson MD Work Phone: [facility] 06-19-2025 09:20-0400 Heart rate 52 /min Queta Nelson MD Work Phone: [facility] 06-19-2025 09:20-0400 SaO2% (BldA) [Mass fraction] 100 % Queta Nelson MD Work Phone: [facility] 06-19-2025 09:20-0400 Systolic blood pressure 116 mm[Hg] Queta Nelson MD Work Phone: [facility] 06-05-2025 07:54-0400 Body height 177.8 cm Kris Tellez DO Work Phone: [facility] 06-05-2025 07:54-0400 Body mass index (BMI) [Ratio] 25.34 kg/m2 Kris Tellez DO Work Phone: [facility] 06-05-2025 07:54-0400 Body temperature 97.5 [degF] Kris Tellez DO Work Phone: [facility] 06-05-2025 07:54-0400 Body weight 80.1 kg Kris Tellez DO Work Phone: [facility] 06-05-2025 07:54-0400 Diastolic blood pressure 68 mm[Hg] Kris Tellez DO Work Phone: [facility] 06-05-2025 07:54-0400 Heart rate 72 /min Kris Tellez DO Work Phone: [facility] 06-05-2025 07:54-0400 SaO2% (BldA) [Mass fraction] 97 % Kris Tellez DO Work Phone: [facility] 06-05-2025 07:54-0400 Systolic blood pressure 96 mm[Hg] Kris Tellez DO Work Phone: [facility] 05-08-2025 14:39-0400 Diastolic blood pressure 90 mm[Hg] Queta Nelosn MD Work Phone: [facility] 05-08-2025 14:39-0400 Heart rate 71 /min Queta Nelson MD Work Phone: [facility] 05-08-2025 14:39-0400 Systolic blood pressure 144 mm[Hg] Queta Nelson MD Work Phone: [facility] 03-14-2025 07:57-0400 Diastolic blood pressure 74 mm[Hg] Queta Nelson MD Work Phone: [facility] 03-14-2025 07:57-0400 Heart rate 61 /min Queta Nelson MD Work Phone: [facility] 03-14-2025 07:57-0400 SaO2% (BldA) [Mass fraction] 96 % Queta Nelson MD Work Phone: [facility] 03-14-2025 07:57-0400 Systolic blood pressure 115 mm[Hg] Queta Nelson MD Work Phone: [facility] 03-14-2024 08:18-0400 Diastolic blood pressure 74 mm[Hg] Queta Nelson MD Work Phone: [facility] 03-14-2024 08:18-0400 Heart rate 68 /min Queta Nelson MD Work Phone: [facility] 03-14-2024 08:18-0400 SaO2% (BldA) [Mass fraction] 95 % Queta Nelson MD Work Phone: [facility] 03-14-2024 08:18-0400 Systolic blood pressure 110 mm[Hg] Queta Nelson MD Work Phone: [facility] 03-11-2023 15:52-0400 Body height 177.8 cm Kris Tellez DO Work Phone: [facility] 03-11-2023 15:52-0400 Body temperature 97.5 [degF] Kris Tellez DO Work Phone: [facility] 03-11-2023 15:52-0400 Body weight 81.65 kg Kris Tellez DO Work Phone: [facility] 03-11-2023 15:52-0400 Diastolic blood pressure 78 mm[Hg] Kris Tellez DO Work Phone: [facility] 03-11-2023 15:52-0400 Heart rate 68 /min Kris Tellez DO Work Phone: [facility] 03-11-2023 15:52-0400 Respiratory rate 20 /min Kris Tellez DO Work Phone: [facility] 03-11-2023 15:52-0400 SaO2% (BldA) [Mass fraction] 100 % Kris Tellez DO Work Phone: [facility] 03-11-2023 15:52-0400 Systolic blood pressure 128 mm[Hg] Kris Tellez DO Work Phone: [facility] Encounters Encounter Date Encounter Type Care Provider Facility Start: 08-10-2025 End: 08-10-2025 ambulatory QUETA NELSON Facility:[id number] Start: 06-29-2025 End: 06-29-2025 ambulatory QUETA NELSON Facility:[id number] Start: 06-28-2025 End: 06-28-2025 ambulatory QUETA NELSON Facility:[id number] Start: 06-19-2025 Encounter for other preprocedural examination KRIS TELLEZ [facility] Start: 06-19-2025 End: 06-19-2025 Subsequent hospital visit by physician E[facility] CARDIAC TESTING Comment on above: Preoperative testing [Z01.818] Start: 06-19-2025 End: 06-19-2025 Patient encounter procedure Queta Nelson MD Work Phone: [facility] Comment on above: Benign prostatic hyp erplasia with weak urinary stream (Primary Dx); Preoperative testing Start: 06-19-2025 End: 06-19-2025 Patient encounter status Queta Nelson MD Work Phone: [facility] Start: 06-19-2025 End: 06-19-2025 ambulatory KRIS TELLEZ Facility:[id number] Start: 06-05-2025 End: 06-05-2025 Telephone encounter Kris Tellez DO Work Phone: [facility] Comment on above: Orders Start: 06-05-2025 End: 06-05-2025 Patient encounter procedure Kris Tellez DO Work Phone: [facility] Comment on above: Wellness examination (Primary Dx); Screening for depression; Encounter for screening examination for other mental health and behavioral disorders; Celiac disease (HCC); BEN (obstructive sleep apnea); History of shingles; Screening for heart disease; Family history of nonmelanoma skin cancer Start: 06-05-2025 End: 06-05-2025 Patient encounter status Kris Tellez DO Work Phone: [facility] Start: 06-05-2025 End: 06-05-2025 ambulatory KRIS SOARESKENYETTA TELLEZ Facility:[id number] Start: 06-05-2025 Encounter for genera l adult medical examination without abnormal findings KRIS TELLEZ [facility] Start: 05-08-2025 End: 05-08-2025 Patient encounter procedure Queta Nelson MD Work Phone: [facility] Comment on above: Benign prostatic hyp erplasia with weak urinary stream (Primary Dx) Start: 05-08-2025 End: 05-08-2025 ambulatory QUETA NELSON Facility:[id number] Start: 04-12-2025 End: 04-13-2025 Telephone encounter Queta Nelson MD Work Phone: [facility] Start: 04-06-2025 ambulatory KRIS MARTA DALEY TELLEZ Facility:[id number] Start: 04-06-2025 End: 04-06-2025 Subsequent hospital visit by physician [facility] Comment on above: Retention of urine [ R33.9] Start: 03-14-2025 End: 03-14-2025 Patient encounter procedure Queta Nelson MD Work Phone: [facility] Comment on above: Benign prostatic hyp erplasia with weak urinary stream (Primary Dx); Retention of urine Start: 03-14-2025 End: 03-14-2025 ambulatory KRIS TELLEZ Facility:[id number] Start: 02-23-2025 End: 02-23-2025 ambulatory KRIS ELLIOTT TELLEZ Facility:[id number] Start: 03-14-2024 End: 03-14-2024 Patient encounter procedure Queta Nelson MD Work Phone: [facility] Comment on above: Benign prostatic hyp erplasia with weak urinary stream (Primary Dx); Retention of urine Start: 12-15-2023 Telephone encounter Kris Tellez DO Work Phone: [facility] Comment on above: Results (Overnight p ulse ox on cpap) Start: 11-17-2023 Telephone encounter Kris Tellez DO Work Phone: [facility] Comment on above: Overnight Pulse Ox Start: 03-11-2023 End: 03-11-2023 ambulatory KRIS TELLEZ Facility:[facility] Start: 03-11-2023 End: 03-11-2023 Patient encounter procedure Kris Tellez DO Work Phone: [facility] Comment on above: Seasonal allergic rh initis, unspecified trigger (Primary Dx); Snoring Start: 03-02-2023 End: 03-02-2023 Subsequent hospital visit by physician Provider [facility] Start: 01-08-2023 End: 01-08-2023 ambulatory QUETA NELSON Facility:[facility] Start: 09-03-2022 End: 09-03-2022 ambulatory KRIS TELLEZ Facility:[facility] Start: 07-10-2022 End: 07-10-2022 ambulatory QUETA NELSON Facility:[facility] Start: 06-25-2022 End: 06-25-2022 ambulatory KRIS TELLEZ Facility:[facility] Start: 06-19-2022 End: 06-19-2022 ambulatory QUETA NELSON Facility:[facility] Start: 08-16-2018 Patient encounter procedure KRIS TELLEZ Facility:[facility] Procedures Date Procedure Procedure Detail Performing Clinician Start: 06-19-2025 Ecg routine ecg w/le ast 12 lds i&r only Queta Nelson MD Work Phone: Start: 06-05-2025 Adult depression scr eening assessment Kris Tellez DO Work Phone: Start: 06-05-2025 Lipid 1996 panel - S ruma or Plasma Queta Nelson MD Work Phone: Start: 03-14-2024 Urnls dip stick/tabl et rgnt auto w/o microscopy Queta Nelson MD Work Phone: Start: 03-08-2024 Lipid 1996 panel - S ruma or Plasma Queta Nelson MD Work Phone: Start: 03-02-2023 BASIC METABOLIC PNL Corey barry Nelson MD Work Phone: Start: 03-02-2023 PSA/PROSTSPECAG DIAG Mi tarun Nelson MD Work Phone: Start: 06-19-2022 PSA screening QUETA HOLM Comment on above: Result Comment: All TPSA results: Total PSA test methodology used is the electrochemiluminescence immunoassay by [employer]. Total PSA values by differing methodologies cannot be interchanged. When TPSA >2.5 ng/mL: For an individual patient, the significance of a PSA level should be interpreted in a broad clinical context, including age, race, family history, digital rectal exam, prostate size, results of prior testing (prostate biopsy, free PSA, PCA3), and use of 5-alpha reductase inhibitors. Considering the high incidence of asymptomatic cancer in the general population that may not pose an ultimate risk to a patient, the decision to recommend urological evaluation or prostate biopsy should be individualized after consideration of all these factors. (added 08.20.2021) Performed By: #### L [id number] #### [facility] - [facility] [address] [place] [address] Start: 11-11-2019 Lipid 1996 panel - S ruma or Plasma Provider [facility] Start: 02-13-2015 Colonoscopy Kris Vinay wild DO Work Phone: Plan of Treatment Date Care Activity Detail Author Start: 2039 RSV Vaccine (1 - 1-dose 75+ series) RSV Vaccine (1 - 1-dose 75+ series) [facility] Start: 06-05-2030 Lipid panel Lipid Screening [facility] Start: 05-04-2030 Colonoscopy COLONOSCOPY [facility] Start: 05-04-2030 COLORECTAL CANCER SCREENING COLORECTAL CANCER SCREENING [facility] Start: 05-04-2030 Screening for malignant neoplasm of colon [facility] Start: 02-23-2030 Prostate specific antigen measurement Prostate Cancer Screening Discussion [facility] Start: 03-08-2029 Lipid panel Lipid Screening [facility] Start: 03-08-2029 Prostate specific antigen measurement Prostate Cancer Screening Discussion [facility] Start: 06-05-2028 Diabetes Screening Diabetes Screening [facility] Start: 03-02-2028 PROSTATE CANCER SCREENING DISCUSSION PROSTATE CANCER SCREENING DISCUSSION [facility] Start: 03-02-2028 Prostate specific antigen measurement Prostate Cancer Screening Discussion [facility] Start: 02-24-2028 Diabetes Screening Diabetes Screening [facility] Start: 03-08-2027 Diabetes Screening Diabetes Screening [facility] Start: 06-11-2026 End: 06-11-2026 Patient encounter procedure 06/11/2026 8:00 AM EDT Office Visit [address] [place] [address] Kris Tellez, [id number] [place] [address] [address] [place] [address] wellness [facility] Comment on above: wellness Start: 06-05-2026 Anxiety Screening Anxiety Screening [facility] Start: 06-05-2026 Depression Screening Depression Screening [facility] Start: 03-19-2026 End: 03-19-2026 Patient encounter procedure 03/19/2026 8:00 AM EDT Office Visit [facility] [address] [place] [address] Queta Nelson MD [address] [place] [address] [place] [address] 1 yr f/u, psa, bmp prior [facility] Comment on above: 1 yr f/u, psa, bmp prior Start: 03-14-2026 End: 06-13-2026 Basic metabolic 2000 panel - Serum or Plasma BASIC METABOLIC PANEL Lab Routine Retention of urine Expected: 03/14/2026, Expires: 06/13/2026 [facility] Comment on above: Expected: 03/14/2026, Expires: Start: 03-14-2026 End: 06-13-2026 Prostate specific Ag [Mass/volume] in Serum or Plasma PROSTATE-SPECIFIC ANTIGEN DIAGNOSTIC Lab Routine Benign prostatic hyperplasia with weak urinary stream Expected: 03/14/2026, Expires: 06/13/2026 [facility] Work Phone: Comment on above: Expected: 03/14/2026, Expires: Start: 03-02-2026 DIABETES SCREEN DIABETES SCREEN [facility] Start: 03-02-2026 Diabetes Screening Diabetes Screening [facility] Start: 08-10-2025 End: 08-10-2025 Patient encounter procedure 08/10/2025 9:30 AM EDT Office Visit [facility] [address] [place], [place] [id number] Queta Nelson MD [address] [place] [address] DR MARSHALL [facility] [place], [place] [id number] 6 wk SX FU [facility] Comment on above: 6 wk SX FU Start: 06-28-2025 End: 06-28-2025 Admission to same day surgery center 06/28/2025 8:15 AM EDT - 06/28/2025 9:15 AM EDT Surgery [facility] [address] [place] [id number] Queta Nelson MD [address] [place] [address] [address] [place], [place] [id number] CYSTOSCOPY [facility] Comment on above: CYSTOSCOPY Start: 06-28-2025 End: 06-28-2025 Cysto insertion transprostatic implant single CYSTOURETHROSCOPY W/INSERTION OF PERM ADJ TRANSPROSTATIC IMPLANT; SINGLE IMPLANT Benign prostatic hyperplasia with weak urinary stream 06/28/2025 8:15 AM EDT [facility] Start: 06-28-2025 End: 06-28-2025 Cystourethroscopy CYSTOSCOPY Benign prostatic hyperplasia with weak urinary stream 06/28/2025 8:15 AM EDT UN OR Start: 06-28-2025 Subsequent hospital visit by physician 06/28/2025 8:15 AM EDT Hospital Encounter [facility] [address] [place], [place] [address] Queta Nelson MD [address] [place] [address] [address] [facility] [place] [address] Benign prostatic hyperplasia with weak urinary stream [N40.1, R39.12] [facility] Comment on above: Benign prostatic hyperplasia with weak u rinary stream [N40.1, R39.12] Start: 06-19-2025 End: 09-18-2025 Bacteria identified in Urine by Culture [facility] Work Phone: Comment on above: Expected: 06/19/2025, Expires: Start: 06-19-2025 End: 06-19-2025 Patient encounter procedure 06/19/2025 9:15 AM EDT Office Visit [facility] [address] [place], [place] [address] Queta Nelson MD [address] [place] [address] [place] [address] 6 week PVR [facility] Comment on above: 6 week PVR Start: 06-12-2025 Influenza vaccination [facility] Start: 06-05-2025 End: 09-04-2025 25-hydroxyvitamin D3 [Mass/volume] in Serum or Plasma VITAMIN D 25 HYDROXY Lab Routine Wellness examination Celiac disease (HCC) Expected: 06/05/2025, Expires: 09/04/2025 [facility] Comment on above: Expected: 06/05/2025, Expires: Start: 06-05-2025 End: 09-04-2025 CBC W Auto Differential panel - Blood COMPLETE BLOOD COUNT AND DIFFERENTIAL Lab Routine Wellness examination Celiac disease (HCC) Expected: 06/05/2025, Expires: 09/04/2025 [facility] Work Phone: Comment on above: Expected: 06/05/2025, Expires: Start: 06-05-2025 End: 09-04-2025 Comprehensive metabolic 2000 panel - Serum or Plasma COMPREHENSIVE METABOLIC PANEL Lab Routine Wellness examination Celiac disease (HCC) Expected: 06/05/2025, Expires: 09/04/2025 [facility] Comment on above: Expected: 06/05/2025, Expires: Start: 06-05-2025 End: 09-04-2025 Lipid 1996 panel - Serum or Plasma LIPID PANEL, FASTING Lab Routine Wellness examination Screening for heart disease Expected: 06/05/2025, Expires: 09/04/2025 [facility] Comment on above: Expected: 06/05/2025, Expires: Start: 06-05-2025 End: 06-05-2025 Patient encounter procedure 06/05/2025 8:00 AM EDT Office Visit [address] [place] [address] Kris Tellez DO [id number] [place] [address] [address] [place] [address] wellness [facility] Comment on above: wellness Start: 05-01-2025 End: 05-01-2025 Patient encounter procedure 05/01/2025 3:15 PM EDT Office Visit [facility] [address] [place] [address] Queta Nelson MD [address] [place] [address] [place] [address] cysto/trus [facility] Comment on above: cysto/trus Start: 04-06-2025 End: 04-06-2025 Patient encounter procedure 04/06/2025 7:45 PM EDT Appointment [facility] [address] [place] [address] kidney bladder us [facility] Comment on above: kidney bladder us Start: 03-14-2025 End: 06-13-2025 Prostate specific Ag [Mass/volume] in Serum or Plasma PROSTATE-SPECIFIC ANTIGEN DIAGNOSTIC Lab Routine Benign prostatic hyperplasia with weak urinary stream Expected: 03/14/2025, Expires: 06/13/2025 [facility] Comment on above: Expected: 03/14/2025, Expires: Start: 03-14-2025 End: 03-14-2025 Patient encounter procedure 03/14/2025 8:00 AM EDT Office Visit [facility] [address] [place] [address] Queta Nelson MD [address] [place] [address] [place] [address] 1 yr labs [facility] Comment on above: 1 yr labs Start: 03-13-2025 End: 06-12-2025 Basic metabolic 2000 panel - Serum or Plasma BASIC METABOLIC PANEL Lab Routine Retention of urine Expected: 03/13/2025, Expires: 06/12/2025 [facility] Comment on above: Expected: 03/13/2025, Expires: Start: 11-17-2024 Covid-19 Vaccine (#1) Covid-19 Vaccine (#1) [facility] Comment on above: Postponed from 04/20/1966 (Declined at t his time) Start: 11-17-2024 Covid-19 Vaccine () Covid-19 Vaccine () [facility] Comment on above: Postponed from 06/12/2023 (Declined at t his time) Start: 11-17-2024 Urine microalbumin profile DTaP,Tdap,Td Vaccine (2 - Td or Tdap) [facility] Comment on above: Postponed from 04/13/2021 (Declined at t his time) Start: 11-11-2024 Lipid 1996 panel - Serum or Plasma Lipid Screening [facility] Start: 11-11-2024 Lipid panel Lipid Screening [facility] Start: 11-11-2024 LIPID SCREEN LIPID SCREEN [facility] Start: 06-12-2024 Covid-19 Vaccine ( season) Covid-19 Vaccine ( season) [facility] Start: 06-12-2024 Influenza vaccination Influenza Vaccine (Season Ended) [facility] Start: 04-10-2024 Influenza vaccination Influenza Vaccine (#1) [facility] Comment on above: Postponed from 06/12/2023 (Declined at t his time) Start: 10-12-2023 Behavioral Health Screening Behavioral Health Screening [facility] Start: 06-12-2023 Influenza vaccination [facility] Start: 10-12-2022 DEPRESSION ASSESSMENT DEPRESSION ASSESSMENT [facility] Start: 04-13-[address] [facility] Start: 2014 Pneumococcal Vaccine: 50+ (1 of 1 - PCV) Pneumococcal Vaccine: 50+ (1 of 1 - PCV) [facility] Start: 2014 SHINGRIX VACCINE (1 of 2) SHINGRIX VACCINE (1 of 2) [facility] Start: 2009 COLOGUARD (FIT-DNA) COLOGUARD (FIT-DNA) [facility] Start: [address] COLONOGRAPHY [facility] Start: 2009 FECAL OCCULT BLOOD FECAL OCCULT BLOOD [facility] Start: 2009 Screening for malignant neoplasm of colon [facility] Start: 2009 SIGMOIDOSCOPY SIGMOIDOSCOPY [facility] Start: 1982 Anxiety Screening Anxiety Screening [facility] Start: 1982 Depression Screening Depression Screening [facility] Start: [birth year]20-1966 COVID-19 VACCINE (#1) COVID-19 VACCINE (#1) [facility] Start: 1964 HEPATITIS B (1 of 3 - 3-dose series) HEPATITIS B (1 of 3 - 3-dose series) [facility] Start: 1965 Hepatitis B Vaccine (1 of 3 - 3-dose series) Hepatitis B Vaccine (1 of 3 - 3-dose series) [facility] ECG COMPLETE ECG COMPLETE ECG Routine Preoperative testing 06/19/2025 10:12 AM EDT [facility] UA DIP, URINE (POC) UA DIP, URIN E (POC) Lab Routine Retention of urine Ordered: 03/14/2024 [facility] Work Phone: Comment on above: Ordered: 03/14/2024 End: 04-13-2026 US Kidney - bilateral and Urinary bladder US KIDNEY/BLADDER Radiology Routine Retention of urine 1 Occurrences starting 03/14/2025 until 04/13/2026 [facility] Comment on above: 1 Occurrences starting 03/14/2025 until 04/13/2026 US Kidney - bilatera l and Urinary bladder US KIDNEY/BLADDER Radiology Routine Retention of urine 04/06/2025 8:18 PM EDT [facility] Work Phone: [facility] Immunizations Immunization Date Immunization Notes Care Provider Patrick lopez 08-16-2018 influenza virus vacc ine, unspecified formulation Provider [facility] 04-13-2011 tetanus toxoid, redu phong diphtheria toxoid, and acellular pertussis vaccine, adsorbed Kris Tellez DO Work Phone: [facility] Payers Date Payer Category Payer [employer] BLUE CARD PPO OOS [id number] 2024 Unknown [id number] 2018 Unknown [id number] 2018 Unknown [employer] BLUE CARD PPO OOS [id number] 2018-Present [phone] [address] [place] [address] PPO [id number] Unknown [id number] Unknown [id number] Unknown [id number] Social History Date Type Detail Facility Start: 06-19-2022 Tobacco smoking stat us NHIS Never smoked tobacco [facility] Start: 06-19-2022 Tobacco use and exposure Smoke less tobacco non-user [facility] Start: 03-11-2023 End: 06-19-2025 Alcohol intake Current non-drinker of alcohol (finding) [facility] Start: 1965 Sex Assigned At Not on file [facility] Start: 01-08-2023 End: 04-06-2025 History of Social function [facility] Start: 01-08-2023 End: 04-06-2025 Tobacco use panel [facility] Start: 04-20-2018 Adult Depression Scr eening Assessment 0 [facility] Start: 02-27-2021 Gender identity Choose not to disclo se [facility] Goals Date Patient Goal Desired Activity /State Personal health goal Clinical Notes 03-01-2021 to 08-10-2025 Queta Nelson MD - 06/19/2025 10:10 AM EDTPatiJessica Chávez - 06/19/2025 9:29 AM Jessica Dash - 06/19/2025 9:29 AM Makayla Mitchell MA - 06/05/2025 8:52 AM EDT Note Date & Type Note Facility 08-10-2025 Note HNO ID: [id number] Author: QUETA NELSON MD Service: ? Author Type: Physician Type: Progress Notes Filed: 08/10/2025 10:40 Note Text: August 10, 2025 Reason for Appointment Patient presents with: Follow Up: 6 week SX F/U. HPI Blanca Noriega is a 59 year old male who presents today for a follow-up appointment regarding the recent UroLift implantation. He notes that he was pretty sore for about a week to 10 days following the procedure but at this point he is feeling better. He is urinating much better and is pleased with the improvement in his urinary patterns. Current Medications mv-mins/folic/lycopene/ginkgo (DAILY MULTIPLE FOR MEN 50+ ORAL) Take 1 tablet by mouth once daily. Tadalafil (CIALIS) 5 mg tablet Take 1 tablet by mouth once daily. PAST MEDICAL HISTORY Diagnosis Date Celiac disease (HCC) CPAP rhinitis Herpes zoster without complication History of chicken pox PAST SURGICAL HISTORY Procedure Laterality Date APPENDECTOMY VASECTOMY UNI/BI SPX W/POSTOP SEMEN EXAMS FAMILY HISTORY Problem Relation Age of Onset No Known Problems Mother Diabetes Father other (Kidney failure) Father other (Celiac disease) Brother No Known Problems Maternal Grandmother SOCIAL HISTORY[1] ALLERGIES Allergen Reactions Ciprofloxacin Other: See Comments Metronidazole Other: See Comments Objective BP 110/61 Pulse 69 SpO2 98% Physical Exam Constitutional: Appearance: Normal appearance. Pulmonary: Effort: Pulmonary effort is normal. Neurological: Mental Status: He is alert and oriented to person, place, and time. ASSESSMENT/PLAN: 1. Benign prostatic hyperplasia with weak urinary stream - ICD9: 600.01, 788.62, ICD10: N40.1, R39.12 (primary diagnosis) The patient is really doing well following UroLift. He said that he feels like he has gone back about 15 years in terms of his urinary patterns. He would like to stop taking the daily tadalafil which certainly is reasonable. We will plan to see him back in about 3 months. We will check a postvoid residual at that time. 2. Other male erectile dysfunction - ICD9: 607.84, ICD10: N52.8 The patient is getting some benefit from the daily tadalafil with regard to the erections. We discussed the as needed dosing in detail. The patient expressed understanding. Queta Nelson MD Follow Up Return in about 3 months (around 11/10/2025) for PVR. [1] Social History Tobacco Use Smoking status: Never Smokeless tobacco: Never Vaping Use Vaping status: Never Used Substance Use Topics Alcohol use: No Drug use: No [facility] 06-29-2025 Note HNO ID: [id number] Author: QUETA NELSON MD Service: ? Author Type: Physician Type: Progress Notes Filed: 06/29/2025 10:05 Note Text: Patient came in for cath removal nursing visit. Again, he underwent UroLift implantation yesterday. [facility] 06-29-2025 Note HNO ID: [id number] Author: RACHANA BLOOM, ? Service: ? Author Type: Welfare Visitor Type: Procedures Filed: 06/29/2025 10:05 Note Text: Pt's indwelling catheter was removed without difficulty, pt tolerated well. BRAXTON Agarwal [facility] 06-28-2025 Note HNO ID: [id number] Author: ?, ?, ? Service: ? Author Type: ? Type: Plan of Care Filed: 06/28/2025 09:40 Note Text: Patients family member picked up in the pharmacy. [facility] 06-28-2025 Note HNO ID: [id number] Author: ?, ?, ? Service: ? Author Type: ? Type: Plan of Care Filed: 06/28/2025 09:40 Note Text: PHARMACY BEDSIDE DELIVERY SERVICE Patient Name: Blanca Noriega The marked outpatient medications were Filled at: [place] and delivered to the patient's bedside to amb Medication List START taking these medications cephALEXin 500 mg capsule Commonly known as: KEFLEX Take 1 capsule by mouth three times a day for 3 days. CONTINUE taking these medications DAILY MULTIPLE FOR MEN 50+ ORAL Tadalafil 5 mg tablet Commonly known as: CIALIS Take 1 tablet by mouth once daily. You might also be taking other medications not listed above. If you have questions about any of your other medications, talk to the person who prescribed them or your Primary Care Provider. Angelina Montelongo PAGER: [phone] June 28, 2025 9:40 AM [facility] 06-21-2025 Note HNO ID: [id number] Author: AMALIA MCKEON APRN.CNP Service: Anesthesiology Author Type: Nurse Practitioner Type: Progress Notes Filed: 06/21/2025 14:12 Note Text: Summary: PreAnesthesia Review SERVICE DATE: 06/21/2025 SERVICE TIME: 2:09 PM Surgeon: Leslie Type of surgery: CYSTOSCOPY, CYSTOURETHROSCOPY W/INSERTION OF PERM ADJ TRANSPROSTATIC IMPLANT; SINGLE IMPLANT Patient scheduled for surgery on 06/28/2025 Surgery Location: [facility] HPI: Blanca Noriega is a 59 year old year old MALE . HANDP: 06/19/2025 Consent:pt to sign PAST MEDICAL HISTORY Diagnosis Date Celiac disease (HCC) CPAP rhinitis Herpes zoster without complication History of chicken pox PAST SURGICAL HISTORY Procedure Laterality Date APPENDECTOMY VASECTOMY UNI/BI SPX W/POSTOP SEMEN EXAMS FAMILY HISTORY Problem Relation Age of Onset No Known Problems Mother Diabetes Father other (Kidney failure) Father other (Celiac disease) Brother No Known Problems Maternal Grandmother SOCIAL HISTORY[1]neg Do not take Cialis for 48 hrs pre-op No medications the morning of surgery mv-mins/folic/lycopene/ginkgo (DAILY MULTIPLE FOR MEN 50+ ORAL)Take 1 tablet by mouth once daily.Disp: Rfl: Tadalafil (CIALIS) 5 mg tabletTake 1 tablet by mouth once daily.Disp: 30 tabletRfl: 11 ALLERGIES Allergen Reactions Ciprofloxacin Other: See Comments Metronidazole Other: See Comments Laboratory and Testing: Lab Value Units Date High Low HB 15.6 g/dL 06/05/2025 17.0 13.0 HCT 47.0 % 06/05/2025 51.0 39.0 WBC 4.05 k/uL 06/05/2025 11.00 3.70 PLT 184 k/uL 06/05/2025 400 150 NA 142 mmol/L 06/05/2025 144 136 K 5.1 mmol/L 06/05/2025 5.1 3.7 GLUC 108 mg/dL 06/05/2025 99 74 BUN 22 mg/dL 06/05/2025 24 9 CREAT 1.28 mg/dL 06/05/2025 1.22 0.73 PTSEC No results within date range. INR No results within date range. APTT No results within date range. ALT 13 U/L 06/05/2025 54 10 AST 17 U/L 06/05/2025 40 14 TBILI 0.7 mg/dL 06/05/2025 1.3 0.2 TSH No results within date range. EKG READING: Confirmed - 06/19/2025 Sinus bradycardia Otherwise normal ECG No previous ECGs available OTHER TESTS: N/A PLAN This patient is optimally prepared for surgery. Clearance: Patient does not require consults for optimization at this time. The Following Tests/Procedures Have Been Initiated: No orders of the defined types were placed in this encounter. Planned Anesthetic: General SIGNATURE: Amalia Mckeon APRN.CNP PATIENT NAME: Blanca Noriega DATE: June 21, 2025 TIME: 2:09 PM [1] Social History Tobacco Use Smoking status: Never Smokeless tobacco: Never Vaping Use Vaping status: Never Used Substance Use Topics Alcohol use: No Drug use: No [facility] 06-19-2025 Note HNO ID: [id number] Author: QUETA NELSON MD Service: ? Author Type: Physician Type: Progress Notes Filed: 06/19/2025 10:12 Note Text: June 19, 2025 Reason for Appointment Patient presents with: Follow Up: 6 week PVR. HPI Blanca Noriega is a 59 year old male who presents today for a follow-up a follow-up appointment. Clinically the patient is doing okay. He said that he thinks there may have been some initial improvement with his urinary patterns with the tadalafil however at this point he is still complaining about hesitancy and incomplete emptying despite taking the medication. The patient has had symptoms for quite some time and feels like he is ready for surgical intervention. Current Medications mv-mins/folic/lycopene/ginkgo (DAILY MULTIPLE FOR MEN 50+ ORAL) Take 1 tablet by mouth once daily. Tadalafil (CIALIS) 5 mg tablet Take 1 tablet by mouth once daily. PAST MEDICAL HISTORY Diagnosis Date Celiac disease (HCC) CPAP rhinitis Herpes zoster without complication History of chicken pox PAST SURGICAL HISTORY Procedure Laterality Date APPENDECTOMY VASECTOMY UNI/BI SPX W/POSTOP SEMEN EXAMS FAMILY HISTORY Problem Relation Age of Onset No Known Problems Mother Diabetes Father other (Kidney failure) Father other (Celiac disease) Brother No Known Problems Maternal Grandmother SOCIAL HISTORY[1] ALLERGIES Allergen Reactions Ciprofloxacin Other: See Comments Metronidazole Other: See Comments Objective BP 116/74 Pulse 52 SpO2 100% Physical Exam Constitutional: Appearance: Normal appearance. HENT: Head: Normocephalic. Nose: Nose normal. Cardiovascular: Rate and Rhythm: Normal rate and regular rhythm. Heart sounds: Normal heart sounds. No murmur heard. Pulmonary: Effort: Pulmonary effort is normal. Breath sounds: Normal breath sounds. No wheezing or rales. Abdominal: General: Bowel sounds are normal. Palpations: There is no hepatomegaly or splenomegaly. Tenderness: There is no abdominal tenderness. There is no guarding. Hernia: No hernia is present. Musculoskeletal: Cervical back: Neck supple. Lumbar back: Normal. Lymphadenopathy: Cervical: No cervical adenopathy. Skin: Findings: No rash. Nails: There is no clubbing. Neurological: Mental Status: He is alert and oriented to person, place, and time. ASSESSMENT/PLAN: 1. Benign prostatic hyperplasia with weak urinary stream - ICD9: 600.01, 788.62, ICD10: N40.1, R39.12 (primary diagnosis) The patient continues to complain about obstructive symptoms. I went back and reviewed his urodynamics which revealed that he did not have a neurogenic bladder but did have an obstructive pattern with a somewhat small bladder capacity. The patient said that he commonly will go for 8 hours without urinating so he does not seem to clinically have a small bladder. He would like to proceed with surgical intervention. We discussed transurethral incision of the prostate versus UroLift. After discussing each of these options in detail the patient said that he would like to proceed with UroLift implantation which was my strongest recommendation. We discussed the procedure in detail. He understands he may or may not need a catheter temporarily following the procedure. Potential risks including failure to improve his symptoms, pain, bleeding, infection, and injury to the bladder or adjacent structures. The patient expressed understanding of the procedure as well as its attendant risks and wants to proceed. - BACTERIAL CULTURE, URINE 2. Preoperative testing - ICD9: V72.84, ICD10: Z01.818 - BACTERIAL CULTURE, URINE - ECG COMPLETE Queta Nelson MD Follow Up Return for Schedule surgery. [1] Social History Tobacco Use Smoking status: Never Smokeless tobacco: Never Vaping Use Vaping status: Never Used Substance Use Topics Alcohol use: No Drug use: No [facility] 06-19-2025 History of Presen t illness Narrative June 19, 2025 Reason for Appointment Patient presents with: Follow Up: 6 week PVR. HPI Blanca Noriega is a 59 year old male who presents today for a follow-up a follow-up appointment. Clinically the patient is doing okay. He said that he thinks there may have been some initial improvement with his urinary patterns with the tadalafil however at this point he is still complaining about hesitancy and incomplete emptying despite taking the medication. The patient has had symptoms for quite some time and feels like he is ready for surgical intervention. Current Medications mv-mins/folic/lycopene/ginkgo (DAILY MULTIPLE FOR MEN 50+ ORAL) Take 1 tablet by mouth once daily. Tadalafil (CIALIS) 5 mg tablet Take 1 tablet by mouth once daily. PAST MEDICAL HISTORY Diagnosis Date Celiac disease (HCC) CPAP rhinitis Herpes zoster without complication History of chicken pox PAST SURGICAL HISTORY Procedure Laterality Date APPENDECTOMY VASECTOMY UNI/BI SPX W/POSTOP SEMEN EXAMS FAMILY HISTORY Problem Relation Age of Onset No Known Problems Mother Diabetes Father other (Kidney failure) Father other (Celiac disease) Brother No Known Problems Maternal Grandmother SOCIAL HISTORY[1] ALLERGIES Allergen Reactions Ciprofloxacin Other: See Comments Metronidazole Other: See Comments Objective BP 116/74 Pulse 52 SpO2 100% Physical Exam Constitutional: Appearance: Normal appearance. HENT: Head: Normocephalic. Nose: Nose normal. Cardiovascular: Rate and Rhythm: Normal rate and regular rhythm. Heart sounds: Normal heart sounds. No murmur heard. Pulmonary: Effort: Pulmonary effort is normal. Breath sounds: Normal breath sounds. No wheezing or rales. Abdominal: General: Bowel sounds are normal. Palpations: There is no hepatomegaly or splenomegaly. Tenderness: There is no abdominal tenderness. There is no guarding. Hernia: No hernia is present. Musculoskeletal: Cervical back: Neck supple. Lumbar back: Normal. Lymphadenopathy: Cervical: No cervical adenopathy. Skin: Findings: No rash. Nails: There is no clubbing. Neurological: Mental Status: He is alert and oriented to person, place, and time. ASSESSMENT/PLAN: 1. Benign prostatic hyperplasia with weak urinary stream - ICD9: 600.01, 788.62, ICD10: N40.1, R39.12 (primary diagnosis) The patient continues to complain about obstructive symptoms. I went back and reviewed his urodynamics which revealed that he did not have a neurogenic bladder but did have an obstructive pattern with a somewhat small bladder capacity. The patient said that he commonly will go for 8 hours without urinating so he does not seem to clinically have a small bladder. He would like to proceed with surgical intervention. We discussed transurethral incision of the prostate versus UroLift. After discussing each of these options in detail the patient said that he would like to proceed with UroLift implantation which was my strongest recommendation. We discussed the procedure in detail. He understands he may or may not need a catheter temporarily following the procedure. Potential risks including failure to improve his symptoms, pain, bleeding, infection, and injury to the bladder or adjacent structures. The patient expressed understanding of the procedure as well as its attendant risks and wants to proceed. - BACTERIAL CULTURE, URINE 2. Preoperative testing - ICD9: V72.84, ICD10: Z01.818 - BACTERIAL CULTURE, URINE - ECG COMPLETE Queta Nelson MD Follow Up Return for Schedule surgery. [1] Social History Tobacco Use Smoking status: Never Smokeless tobacco: Never Vaping Use Vaping status: Never Used Substance Use Topics Alcohol use: No Drug use: No documented in this encounter [facility] 06-19-2025 Instructions Fatou Thornton MA - 06/19/2025 9:51 AM EDT Outpatient Surgery Instructions We have scheduled your surgery for at [facility]. You will receive your surgery time from [facility] the business day prior to surgery. Instructions for the Day of Surgery: On the day of your scheduled surgery, report to the Main Lobby Registration at [facility] using the Main Hospital Entrance. You will be required to have a responsible adult, 18 years or older and who is licensed to drive, accompany you home after the surgery or day of discharge. Remember to wear comfortable clothing. The hospital will provide a gown for you. Pre-Operative Instructions: Do not eat or drink anything after midnight prior to surgery. Make sure to follow any specific instructions given by your surgeon; for example, if you are to be on a clear liquid diet the day before your surgery and then to stop all intake after midnight prior to surgery. Shower using CHG soap the evening before and the morning of surgery, or as directed by the surgeon s office. Do not use CHG soap on the face or genital areas. Wear clean clothes after showering and have clean bed linens the night before surgery. Do not shave the operative area or surrounding site. Make sure to complete ALL pre-op testing prior to surgery: labs, radiology, EKG, etc. TWO week before surgery is best or as instructed by your surgeon. If testing is not done at [facility], please have the facility send results to your surgeon s office. Do not drink alcohol, use smokeless tobacco, or any type of marijuana products after midnight prior to surgery. Do not use any type of tobacco products, including vaping, on the morning of or the day of your surgery. Any abrasions, open wounds or change in skin condition and/or a change in health, fever, cough, cold and flu like symptoms is to be reported to the patient s surgeon. If you have contacts, dentures, or any type of jewelry, please leave these items and other valuables at home, or be able to remove them upon arrival. Please bring hearing aids if you have them, they will be removed before going into the OR/procedure room and will be returned to you after recovery. Instructions for Medications Prior to Surgery: The Pre-Op Clinic will contact you prior to surgery and review the medications you are to take the morning of surgery, with a small sip of water only. The staff will also review your medical history, including an up-to-date medication list, and pre-op instructions. For any type of blood thinners, please hold blood thinner (Coumadin, Aspirin, Plavix, NSAIDS, etc. This is including Ibuprofen products, Naproxen products, Celebrex, Ketoprofen, Indomethacin, Diclofenac, Meclofenamate, or Etodolac.) starting 7 days before surgery. If you have an insulin pump, please refer to your prescribing provider for dose instructions the day of surgery. If you have any questions before surgery please call the office at [phone] and ask for the boats renter. documented in this encounter [facility] 06-19-2025 Note HNO ID: [id number] Author: ?, ?, ? Service: ? Author Type: ? Type: Procedures Filed: 06/19/2025 09:30 Note Text: ULTRASOUND PVR VOLUME: 211 ml TIME: 9:30 am. DONE BY: Jessica Hawkins [facility] 06-19-2025 Procedure note ULTRASOUND PVR VOLUME: 211 ml TIME: 9:30 am. DONE BY: Jessica Hawkins [facility] 06-19-2025 Procedure note ULTRASOUND PVR VOLUME: 211 ml TIME: 9:30 am. DONE BY: Jessica Hawkins documented in this encounter [facility] 06-05-2025 Telephone encounter Note Blanca Noriega [id number] Blanca Noriega has been referred to [facility] in [place]. P [phone] F [phone] The referral has been faxed and there office will call the patient to schedule. [facility] 06-05-2025 Miscellaneous Notes Blanca Noriega [id number] Blanca Noriega has been referred to [facility] in [place]. P [phone] F [phone] The referral has been faxed and there office will call the patient to schedule. Referral to derm placed. Pt would like to go to [facility] please. Kris Tellez DO documented in this encounter [facility] 06-05-2025 Note HNO ID: [id number] Author: MAKAYLA AGUILERA MA Service: ? Author Type: Welfare Visitor Type: Progress Notes Filed: 06/05/2025 08:52 Note Text: Successful 21G venipuncture, left arm. 1 gold sst tube and 1 lavender EDTA tube collected. Tubes labeled with beaker label and scanned as collected. Patient tolerated procedure well. Coban pressure dressing applied. DEBORAH Lepe GXMO [facility] 06-05-2025 History of Presen t illness Narrative Successful 21G venipuncture, left arm. 1 gold sst tube and 1 lavender EDTA tube collected. Tubes labeled with beaker label and scanned as collected. Patient tolerated procedure well. Coban pressure dressing applied. DEBORAH Lepe GXMO SUBJECTIVE: Blanca Noriega is a 59 year old male here today for an annual physical. I reviewed his past medical, surgical, social, and family histories today and updated chart. Allergies, chronic medications, and supplements were also reviewed and his list in the chart is now up to date. Concern(s) today include: Wellness (Pt is asking for referral to Derm. Pt is fasting. ) Pt's brother diagnosed with skin cancer and pt with years of sun exposure as a child. His medications were reviewed today and his list is now up to date. He is compliant on taking his medications :Yes He is tolerating his medication(s) without side effects: Yes He is following an appropriate diet for his medical problems: Yes He is getting some exercise in? Yes SOCIAL HISTORY[1] REVIEW OF SYSTEMS: Review of Systems Constitutional: Negative for chills, fatigue and fever. HENT: Negative for congestion, ear pain and sore throat. Respiratory: Negative for cough, shortness of breath and wheezing. Cardiovascular: Negative for chest pain, palpitations and leg swelling. Gastrointestinal: Negative for abdominal pain, constipation, diarrhea, nausea and vomiting. Musculoskeletal: Negative for arthralgias, joint swelling and myalgias. Skin: Negative for color change and rash. Neurological: Negative for dizziness, numbness and headaches. Hematological: Does not bruise/bleed easily. Psychiatric/Behavioral: Negative. Negative for dysphoric mood. All other systems reviewed and are negative. PHYSICAL EXAMINATION: BP 96/68 (BP Site: Left Arm, BP Position: Sitting, BP Cuff Size: Regular Adult) Pulse 72 Temp 36.4 C (97.5 F) Ht 177.8 cm (5' 10) Wt 80.1 kg (176 lb 9.4 oz) SpO2 97% BMI 25.34 kg/m BMI 25.34 kg/(m^2) Physical Exam Vitals reviewed. Constitutional: General: He is not in acute distress. Appearance: Normal appearance. He is well-developed. HENT: Head: Normocephalic and atraumatic. Right Ear: External ear normal. Left Ear: External ear normal. Nose: Nose normal. Mouth/Throat: Mouth: Mucous membranes are moist. Eyes: General: No scleral icterus. Right eye: No discharge. Left eye: No discharge. Extraocular Movements: Extraocular movements intact. Conjunctiva/sclera: Conjunctivae normal. Cardiovascular: Rate and Rhythm: Normal rate and regular rhythm. Pulmonary: Effort: Pulmonary effort is normal. No respiratory distress. Breath sounds: Normal breath sounds. Abdominal: General: Abdomen is flat. Musculoskeletal: Cervical back: Normal range of motion. Comments: Normal gait Skin: General: Skin is warm and dry. Neurological: General: No focal deficit present. Mental Status: He is alert and oriented to person, place, and time. Cranial Nerves: No cranial nerve deficit. Psychiatric: Mood and Affect: Mood normal. Behavior: Behavior normal. Thought Content: Thought content normal. Judgment: Judgment normal. ASSESSMENT/PLAN: 1. Wellness examination - ICD9: V70.0, ICD10: Z00.00 (primary diagnosis) - Counseled on healthy diet and regular exercise - Patient counseled on and acknowledged vaccine benefits/risks/side effects; VIS provided: Shingrix - Follow up for annual exam in one year - COMPLETE BLOOD COUNT AND DIFFERENTIAL - COMPREHENSIVE METABOLIC PANEL - LIPID PANEL, FASTING - VITAMIN D 25 HYDROXY 2. Screening for depression - ICD9: V79.0, ICD10: Z13.31 - DEPRESSION SCREENING 3. Encounter for screening examination for other mental health and behavioral disorders - ICD9: V79.8, ICD10: Z13.39 - ANXIETY SCREENING 4. Celiac disease (HCC) - ICD9: 579.0, ICD10: K90.0 - COMPLETE BLOOD COUNT AND DIFFERENTIAL - COMPREHENSIVE METABOLIC PANEL - VITAMIN D 25 HYDROXY 5. BEN (obstructive sleep apnea) - ICD9: 327.23, ICD10: G47.33 6. History of shingles - ICD9: V12.09, ICD10: Z86.19 2018 when moved to the area. Discussed getting shingles vaccine. Will consider. 7. Screening for heart disease - ICD9: V81.2, ICD10: Z13.6 - LIPID PANEL, FASTING 8. Family history of nonmelanoma skin cancer - ICD9: V19.4, ICD10: Z80.8 - CONSULT TO DERMATOLOGY Kris Tellez DO [1] Social History Tobacco Use Smoking status: Never Smokeless tobacco: Never Vaping Use Vaping status: Never Used Substance Use Topics Alcohol use: No Drug use: No documented in this encounter [facility] 06-05-2025 Telephone encounter Note Referral to derm placed. Pt would like to go to [facility] please. Kris Tellez DO [facility] 06-05-2025 Note HNO ID: [id number] Author: KRIS TELLEZ DO Service: ? Author Type: Physician Type: Progress Notes Filed: 06/05/2025 08:42 Note Text: SUBJECTIVE: Blanca Noriega is a 59 year old male here today for an annual physical. I reviewed his past medical, surgical, social, and family histories today and updated chart. Allergies, chronic medications, and supplements were also reviewed and his list in the chart is now up to date. Concern(s) today include: Wellness (Pt is asking for referral to Derm. Pt is fasting. ) Pt's brother diagnosed with skin cancer and pt with years of sun exposure as a child. His medications were reviewed today and his list is now up to date. He is compliant on taking his medications :Yes He is tolerating his medication(s) without side effects: Yes He is following an appropriate diet for his medical problems: Yes He is getting some exercise in? Yes SOCIAL HISTORY[1] REVIEW OF SYSTEMS: Review of Systems Constitutional: Negative for chills, fatigue and fever. HENT: Negative for congestion, ear pain and sore throat. Respiratory: Negative for cough, shortness of breath and wheezing. Cardiovascular: Negative for chest pain, palpitations and leg swelling. Gastrointestinal: Negative for abdominal pain, constipation, diarrhea, nausea and vomiting. Musculoskeletal: Negative for arthralgias, joint swelling and myalgias. Skin: Negative for color change and rash. Neurological: Negative for dizziness, numbness and headaches. Hematological: Does not bruise/bleed easily. Psychiatric/Behavioral: Negative. Negative for dysphoric mood. All other systems reviewed and are negative. PHYSICAL EXAMINATION: BP 96/68 (BP Site: Left Arm, BP Position: Sitting, BP Cuff Size: Regular Adult) Pulse 72 Temp 36.4 ?C (97.5 ?F) Ht 177.8 cm (5' 10) Wt 80.1 kg (176 lb 9.4 oz) SpO2 97% BMI 25.34 kg/m? BMI 25.34 kg/(m2) Physical Exam Vitals reviewed. Constitutional: General: He is not in acute distress. Appearance: Normal appearance. He is well-developed. HENT: Head: Normocephalic and atraumatic. Right Ear: External ear normal. Left Ear: External ear normal. Nose: Nose normal. Mouth/Throat: Mouth: Mucous membranes are moist. Eyes: General: No scleral icterus. Right eye: No discharge. Left eye: No discharge. Extraocular Movements: Extraocular movements intact. Conjunctiva/sclera: Conjunctivae normal. Cardiovascular: Rate and Rhythm: Normal rate and regular rhythm. Pulmonary: Effort: Pulmonary effort is normal. No respiratory distress. Breath sounds: Normal breath sounds. Abdominal: General: Abdomen is flat. Musculoskeletal: Cervical back: Normal range of motion. Comments: Normal gait Skin: General: Skin is warm and dry. Neurological: General: No focal deficit present. Mental Status: He is alert and oriented to person, place, and time. Cranial Nerves: No cranial nerve deficit. Psychiatric: Mood and Affect: Mood normal. Behavior: Behavior normal. Thought Content: Thought content normal. Judgment: Judgment normal. ASSESSMENT/PLAN: 1. Wellness examination - ICD9: V70.0, ICD10: Z00.00 (primary diagnosis) - Counseled on healthy diet and regular exercise - Patient counseled on and acknowledged vaccine benefits/risks/side effects; VIS provided: Shingrix - Follow up for annual exam in one year - COMPLETE BLOOD COUNT AND DIFFERENTIAL - COMPREHENSIVE METABOLIC PANEL - LIPID PANEL, FASTING - VITAMIN D 25 HYDROXY 2. Screening for depression - ICD9: V79.0, ICD10: Z13.31 - DEPRESSION SCREENING 3. Encounter for screening examination for other mental health and behavioral disorders - ICD9: V79.8, ICD10: Z13.39 - ANXIETY SCREENING 4. Celiac disease (HCC) - ICD9: 579.0, ICD10: K90.0 - COMPLETE BLOOD COUNT AND DIFFERENTIAL - COMPREHENSIVE METABOLIC PANEL - VITAMIN D 25 HYDROXY 5. BEN (obstructive sleep apnea) - ICD9: 327.23, ICD10: G47.33 6. History of shingles - ICD9: V12.09, ICD10: Z86.19 2018 when moved to the area. Discussed getting shingles vaccine. Will consider. 7. Screening for heart disease - ICD9: V81.2, ICD10: Z13.6 - LIPID PANEL, FASTING 8. Family history of nonmelanoma skin cancer - ICD9: V19.4, ICD10: Z80.8 - CONSULT TO DERMATOLOGY Kris Tellez DO [1] Social History Tobacco Use Smoking status: Never Smokeless tobacco: Never Vaping Use Vaping status: Never Used Substance Use Topics Alcohol use: No Drug use: No [facility] 05-08-2025 Note HNO ID: [id number] Author: QUETA NELSON MD Service: ? Author Type: Physician Type: Progress Notes Filed: 05/08/2025 15:17 Note Text: May 08, 2025 Reason for Appointment Patient presents with: Cyst: Cystoscopy. Denies s/s of UTI. C/o slow stream and not emptying bladder completely. RR HPI Blanca Noriega is a 59 year old adult who presents today for a follow-up appointment and cystoscopy today. The patient continues to complain about obstructive lower urinary tract symptoms. He underwent an ultrasound which revealed some trabeculation of his bladder as well as a postvoid residual of 92 cc. His prostate was fairly small on the ultrasound. Current Medications mv-mins/folic/lycopene/ginkgo (DAILY MULTIPLE FOR MEN 50+ ORAL)Take 1 tablet by mouth once daily.Disp: Rfl: Tadalafil (CIALIS) 5 mg tabletTake 1 tablet by mouth once daily.Disp: 30 tabletRfl: 11 KRILL OIL ORALTake by mouth.Disp: Rfl: PAST MEDICAL HISTORY Diagnosis Date Celiac disease (HCC) CPAP rhinitis Herpes zoster without complication History of chicken pox PAST SURGICAL HISTORY Procedure Laterality Date APPENDECTOMY VASECTOMY UNI/BI SPX W/POSTOP SEMEN EXAMS FAMILY HISTORY Problem Relation Age of Onset No Known Problems Mother Diabetes Father other (Kidney failure) Father other (Celiac disease) Brother No Known Problems Maternal Grandmother Social History Tobacco Use Smoking status: Never Smokeless tobacco: Never Vaping Use Vaping status: Never Used Substance Use Topics Alcohol use: No Drug use: No ALLERGIES Allergen Reactions Ciprofloxacin Other: See Comments Metronidazole Other: See Comments Objective BP 144/90 Pulse 71 Physical Exam Constitutional: Appearance: Normal appearance. Pulmonary: Effort: Pulmonary effort is normal. Neurological: Mental Status: Ezekiel is alert and oriented to person, place, and time. ASSESSMENT/PLAN: 1. Benign prostatic hyperplasia with weak urinary stream - ICD9: 600.01, 788.62, ICD10: N40.1, R39.12 The patient underwent cystoscopy which confirmed a fairly small prostate. He has tried tamsulosin twice in the past without good success. He would be a candidate for a UroLift. The patient did inquire about prostate artery embolization however I explained to him that I do not think that is really the best option for him. Ultimately though, I recommended that we really exhaust his medical therapy options. He has never tried alfuzosin or daily tadalafil. I recommended we give him a trial of daily tadalafil. I sent in a prescription and warned him of the potential side effects. We will see him back in about 6 weeks to assess his response to the medication. - SODIUM CHLORIDE 0.9 % IRRIGATION SOLUTION - LIDOCAINE 2 % MUCOSAL JELLY IN APPLICATOR - TADALAFIL 5 MG TABLET Queta Nelson MD Follow Up Return in about 6 weeks (around 06/19/2025) for PVR. [facility] 05-08-2025 History of Presen t illness Narrative May 08, 2025 Reason for Appointment Patient presents with: Cyst: Cystoscopy. Denies s/s of UTI. C/o slow stream and not emptying bladder completely. RR HPI Blanca Noriega is a 59 year old adult who presents today for a follow-up appointment and cystoscopy today. The patient continues to complain about obstructive lower urinary tract symptoms. He underwent an ultrasound which revealed some trabeculation of his bladder as well as a postvoid residual of 92 cc. His prostate was fairly small on the ultrasound. Current Medications mv-mins/folic/lycopene/ginkgo (DAILY MULTIPLE FOR MEN 50+ ORAL)^Take 1 tablet by mouth once daily.^Disp: ^Rfl: Tadalafil (CIALIS) 5 mg tablet^Take 1 tablet by mouth once daily.^Disp: 30 tablet^Rfl: 11 KRILL OIL ORAL^Take by mouth.^Disp: ^Rfl: PAST MEDICAL HISTORY Diagnosis Date Celiac disease (HCC) CPAP rhinitis Herpes zoster without complication History of chicken pox PAST SURGICAL HISTORY Procedure Laterality Date APPENDECTOMY VASECTOMY UNI/BI SPX W/POSTOP SEMEN EXAMS FAMILY HISTORY Problem Relation Age of Onset No Known Problems Mother Diabetes Father other (Kidney failure) Father other (Celiac disease) Brother No Known Problems Maternal Grandmother Social History Tobacco Use Smoking status: Never Smokeless tobacco: Never Vaping Use Vaping status: Never Used Substance Use Topics Alcohol use: No Drug use: No ALLERGIES Allergen Reactions Ciprofloxacin Other: See Comments Metronidazole Other: See Comments Objective BP 144/90 Pulse 71 Physical Exam Constitutional: Appearance: Normal appearance. Pulmonary: Effort: Pulmonary effort is normal. Neurological: Mental Status: Ezekiel is alert and oriented to person, place, and time. ASSESSMENT/PLAN: 1. Benign prostatic hyperplasia with weak urinary stream - ICD9: 600.01, 788.62, ICD10: N40.1, R39.12 The patient underwent cystoscopy which confirmed a fairly small prostate. He has tried tamsulosin twice in the past without good success. He would be a candidate for a UroLift. The patient did inquire about prostate artery embolization however I explained to him that I do not think that is really the best option for him. Ultimately though, I recommended that we really exhaust his medical therapy options. He has never tried alfuzosin or daily tadalafil. I recommended we give him a trial of daily tadalafil. I sent in a prescription and warned him of the potential side effects. We will see him back in about 6 weeks to assess his response to the medication. - SODIUM CHLORIDE 0.9 % IRRIGATION SOLUTION - LIDOCAINE 2 % MUCOSAL JELLY IN APPLICATOR - TADALAFIL 5 MG TABLET Queta Nelson MD Follow Up Return in about 6 weeks (around 06/19/2025) for PVR. documented in this encounter [facility] 05-08-2025 Note HNO ID: [id number] Author: QUETA NELSON MD Service: ? Author Type: Physician Type: Procedures Filed: 05/08/2025 15:17 Note Text: May 08, 2025 Reason for Appointment Patient presents with: Cyst: Cystoscopy. Denies s/s of UTI. C/o slow stream and not emptying bladder completely. RR HPI Blanca Noriega is a 59 year old adult who presents today for cystoscopy. Pre op dx: BPH with lower urinary tract symptoms Post op dx: Same Procedure: Flexible cystoscopy Description of procedure: The patient was taken to the procedure room and an appropriate informed consent was obtained. He was placed in the supine position on the procedure table and prepped in the usual fashion. 2% Xylocaine- jelly was instilled into the urethra in a retrograde fashion. The flexible cystoscope was inserted through the urethra into the bladder The entire bladder mucosa was scrutinized and there were no stones, tumors, or foreign bodies. The ureteral orifices were in their normal location and configuration. With retroflexion of the scope there was no evidence of pathology the bladder neck. As the scope was withdrawn the prostatic fossa was carefully evaluated and there was fairly minimal macroscopic BPH. The remainder of the urethra was normal. The patient tolerated the procedure well. BP 144/90 Pulse 71 Physical Exam UNIVERSAL PROTOCOL / SAFETY CHECKLIST Procedure to be Performed: cystoscopy Sign In: A Moment of CARE was completed. Appropriate PPE (Personal Protective Equipment) worn by all providers involved with the procedure. Special equipment not required. Patient/Surrogate Stated/Verified: Patient name, Date of , Relevant allergies, and The intended procedure Time Out: Relevant labs, photos, and/or imaging studies have been reviewed. Intended patient and procedure match the source document(s) (e.g. consent, HANDP, associated studies [imaging, pathology]) match the intended patient and procedure. Consent obtained and matches the intended procedure. Yes. Correct side/site is not applicable. Medications required for this procedure are verified. Fire risk assessed and is not applicable. Implants: are not applicable. Sign Out: Specimens N/A All instruments, equipment, possible retained foreign bodies are accounted for. Yes. The post-procedure plan of care has been communicated to the patient or surrogate. No follow-ups on file. [facility] 05-08-2025 Procedure note May 08, 2025 Reason for Appointment Patient presents with: Cyst: Cystoscopy. Denies s/s of UTI. C/o slow stream and not emptying bladder completely. RR HPI Blanca Noriega is a 59 year old adult who presents today for cystoscopy. Pre op dx: BPH with lower urinary tract symptoms Post op dx: Same Procedure: Flexible cystoscopy Description of procedure: The patient was taken to the procedure room and an appropriate informed consent was obtained. He was placed in the supine position on the procedure table and prepped in the usual fashion. 2% Xylocaine- jelly was instilled into the urethra in a retrograde fashion. The flexible cystoscope was inserted through the urethra into the bladder The entire bladder mucosa was scrutinized and there were no stones, tumors, or foreign bodies. The ureteral orifices were in their normal location and configuration. With retroflexion of the scope there was no evidence of pathology the bladder neck. As the scope was withdrawn the prostatic fossa was carefully evaluated and there was fairly minimal macroscopic BPH. The remainder of the urethra was normal. The patient tolerated the procedure well. BP 144/90 Pulse 71 Physical Exam UNIVERSAL PROTOCOL / SAFETY CHECKLIST Procedure to be Performed: cystoscopy Sign In: A Moment of CARE was completed. Appropriate PPE (Personal Protective Equipment) worn by all providers involved with the procedure. Special equipment not required. Patient/Surrogate Stated/Verified: Patient name, Date of , Relevant allergies, and The intended procedure Time Out: Relevant labs, photos, and/or imaging studies have been reviewed. Intended patient and procedure match the source document(s) (e.g. consent, H&P, associated studies [imaging, pathology]) match the intended patient and procedure. Consent obtained and matches the intended procedure. Yes. Correct side/site is not applicable. Medications required for this procedure are verified. Fire risk assessed and is not applicable. Implants: are not applicable. Sign Out: Specimens N/A All instruments, equipment, possible retained foreign bodies are accounted for. Yes. The post-procedure plan of care has been communicated to the patient or surrogate. No follow-ups on file. [facility] 05-08-2025 Procedure note May 08, 2025 Reason for Appointment Patient presents with: Cyst: Cystoscopy. Denies s/s of UTI. C/o slow stream and not emptying bladder completely. RR HPI Blanca Noriega is a 59 year old adult who presents today for cystoscopy. Pre op dx: BPH with lower urinary tract symptoms Post op dx: Same Procedure: Flexible cystoscopy Description of procedure: The patient was taken to the procedure room and an appropriate informed consent was obtained. He was placed in the supine position on the procedure table and prepped in the usual fashion. 2% Xylocaine- jelly was instilled into the urethra in a retrograde fashion. The flexible cystoscope was inserted through the urethra into the bladder The entire bladder mucosa was scrutinized and there were no stones, tumors, or foreign bodies. The ureteral orifices were in their normal location and configuration. With retroflexion of the scope there was no evidence of pathology the bladder neck. As the scope was withdrawn the prostatic fossa was carefully evaluated and there was fairly minimal macroscopic BPH. The remainder of the urethra was normal. The patient tolerated the procedure well. BP 144/90 Pulse 71 Physical Exam UNIVERSAL PROTOCOL / SAFETY CHECKLIST Procedure to be Performed: cystoscopy Sign In: A Moment of CARE was completed. Appropriate PPE (Personal Protective Equipment) worn by all providers involved with the procedure. Special equipment not required. Patient/Surrogate Stated/Verified: Patient name, Date of , Relevant allergies, and The intended procedure Time Out: Relevant labs, photos, and/or imaging studies have been reviewed. Intended patient and procedure match the source document(s) (e.g. consent, H&P, associated studies [imaging, pathology]) match the intended patient and procedure. Consent obtained and matches the intended procedure. Yes. Correct side/site is not applicable. Medications required for this procedure are verified. Fire risk assessed and is not applicable. Implants: are not applicable. Sign Out: Specimens N/A All instruments, equipment, possible retained foreign bodies are accounted for. Yes. The post-procedure plan of care has been communicated to the patient or surrogate. No follow-ups on file. documented in this encounter [facility] 04-13-2025 Telephone encounter Note Also replied to patients [employer] message with information from Patrick Thornton MA [facility] 04-13-2025 Miscellaneous Notes Also replied to patients [employer] message with information from Patrick Thornton MA Tried to call pt to give results on KBUS and get scheduled for Cysto/Trus. Scheduled him for May 01 at 3:15pm Please make sure he gets results and this day/time works for him when he calls back BRAXTON Agarwal Ultrasound demonstrates signs of chronic bladder outlet obstruction and moderate post void residual. I would recommend we arrange for cystoscopy/TRUS for further evaluation. It appears he had discussed possible surgical intervention with Dr. Nelson, and this would be the next step in the process. Pt called in asking for KBUS results. Next appt is 03/19/2026. Please advise BRAXTON Agarwal documented in this encounter [facility] 04-12-2025 Telephone encounter Note Tried to call pt to give results on KBUS and get scheduled for Cysto/Trus. Scheduled him for May 01 at 3:15pm Please make sure he gets results and this day/time works for him when he calls back BRAXTON Agarwal [facility] 04-12-2025 Telephone encounter Note Ultrasound demonstrates signs of chronic bladder outlet obstruction and moderate post void residual. I would recommend we arrange for cystoscopy/TRUS for further evaluation. It appears he had discussed possible surgical intervention with Dr. Nelson, and this would be the next step in the process. [facility] Work Phone: 04-12-2025 Telephone encounter Note Pt called in asking for KBUS results. Next appt is 03/19/2026. Please advise BRAXTON Agarwal [facility] 04-06-2025 History of Presen t illness Narrative Radiology Service Progress Note PATIENT NAME: Blanca Noriega DATE OF SERVICE: April 06, 2025 TIME: 8:18 PM PATIENT IDENTITY VERIFICATION COMPLETED USING TWO (2) IDENTIFIERS: Name and Date of confirmed by patient verbally and Name and Date of confirmed by identification band. FALL SCREENING: Has the patient had 2 falls in the last year or 1 fall with injury or currently using an Ambulatory Assistive Device (Walker, Cane, Wheelchair, Crutches, etc.)? No PATIENT GENDER DATA: Assigned male at PATIENT RELEVANT IMPLANT DATA REVIEWED: Not Applicable PATIENT PRESENTS WITH AN IMPLANTABLE OR ATTACHED LEAD COATER: N/A RADIOLOGY DEPARTMENT: Ultrasound PERIPHERAL IV DATA: Not applicable SIGNED BY: RT Ozzie(R) April 06, 2025 8:18 PM documented in this encounter [facility] 04-06-2025 Note HNO ID: [id number] Author: ROOSEVELT LEY RT(R) Service: ? Author Type: Technologist Type: Progress Notes Filed: 04/06/2025 20:18 Note Text: Radiology Service Progress Note PATIENT NAME: Blanca Noriega DATE OF SERVICE: April 06, 2025 TIME: 8:18 PM PATIENT IDENTITY VERIFICATION COMPLETED USING TWO (2) IDENTIFIERS: Name and Date of confirmed by patient verbally and Name and Date of confirmed by identification band. FALL SCREENING: Has the patient had 2 falls in the last year or 1 fall with injury or currently using an Ambulatory Assistive Device (Walker, Cane, Wheelchair, Crutches, etc.)? No PATIENT GENDER DATA: Assigned male at PATIENT RELEVANT IMPLANT DATA REVIEWED: Not Applicable PATIENT PRESENTS WITH AN IMPLANTABLE OR ATTACHED LEAD COATER: N/A RADIOLOGY DEPARTMENT: Ultrasound PERIPHERAL IV DATA: Not applicable SIGNED BY: ELIZABETH Horne) April 06, 2025 8:18 PM [facility] 03-14-2025 Note HNO ID: [id number] Author: QUETA NELSON MD Service: ? Author Type: Physician Type: Progress Notes Filed: 03/14/2025 08:46 Note Text: March 14, 2025 Reason for Appointment Patient presents with: Follow Up: 1 year labs. HPI Blanca Noriega is a 59 year old adult who presents today for a follow-up appointment. The patient continues to have intermittent lower urinary tract symptoms which appear to be obstructive. The patient notes that back in January he was having quite a bit of difficulty urinating however things are somewhat better now. The patient denies any gross hematuria or urinary infections in the interim. Current Medications KRILL OIL ORAL Take by mouth. PAST MEDICAL HISTORY Diagnosis Date Celiac disease (HCC) CPAP rhinitis Herpes zoster without complication History of chicken pox PAST SURGICAL HISTORY Procedure Laterality Date APPENDECTOMY VASECTOMY UNI/BI SPX W/POSTOP SEMEN EXAMS FAMILY HISTORY Problem Relation Age of Onset No Known Problems Mother Diabetes Father other (Kidney failure) Father other (Celiac disease) Brother No Known Problems Maternal Grandmother Social History Tobacco Use Smoking status: Never Smokeless tobacco: Never Vaping Use Vaping status: Never Used Substance Use Topics Alcohol use: No Drug use: No ALLERGIES Allergen Reactions Ciprofloxacin Other: See Comments Metronidazole Other: See Comments Objective BP 115/74 Pulse 61 SpO2 96% Physical Exam Constitutional: Appearance: Normal appearance. Pulmonary: Effort: Pulmonary effort is normal. Genitourinary: Comments: Prostate enlarged, no nodules, NT. Neurological: Mental Status: Ezekiel is alert and oriented to person, place, and time. ASSESSMENT/PLAN: 1. Benign prostatic hyperplasia with weak urinary stream - ICD9: 600.01, 788.62, ICD10: N40.1, R39.12 (primary diagnosis) The patient notes that he was having quite a bit of difficulty urinating about 2 months ago for about a week. He said that the symptoms have resolved however he still does not urinate normally. We had previously discussed having him undergo UroLift. The patient had numerous questions about this today. I explained to the patient that he really does need to avoid straining to urinate as this can lead to multiple other problems. Ultimately, we decided that we should get an up-to-date ultrasound to ensure that the patient is adequately emptying and has not developed hydronephrosis. We will plan to have him call for the results. The patient understands that he Apsley must call for the results and that he cannot assume no news is good news. Of note, his recent PSA was 1.88 ng/mL which is stable. - PROSTATE-SPECIFIC ANTIGEN DIAGNOSTIC 2. Retention of urine - ICD9: 788.20, ICD10: R33.9 See above - BASIC METABOLIC PANEL Queta Nelson MD Follow Up Return in about 1 year (around 03/14/2026). [facility] 03-14-2025 History of Presen t illness Narrative March 14, 2025 Reason for Appointment Patient presents with: Follow Up: 1 year labs. HPI Blanca Noriega is a 59 year old adult who presents today for a follow-up appointment. The patient continues to have intermittent lower urinary tract symptoms which appear to be obstructive. The patient notes that back in January he was having quite a bit of difficulty urinating however things are somewhat better now. The patient denies any gross hematuria or urinary infections in the interim. Current Medications KRILL OIL ORAL Take by mouth. PAST MEDICAL HISTORY Diagnosis Date Celiac disease (HCC) CPAP rhinitis Herpes zoster without complication History of chicken pox PAST SURGICAL HISTORY Procedure Laterality Date APPENDECTOMY VASECTOMY UNI/BI SPX W/POSTOP SEMEN EXAMS FAMILY HISTORY Problem Relation Age of Onset No Known Problems Mother Diabetes Father other (Kidney failure) Father other (Celiac disease) Brother No Known Problems Maternal Grandmother Social History Tobacco Use Smoking status: Never Smokeless tobacco: Never Vaping Use Vaping status: Never Used Substance Use Topics Alcohol use: No Drug use: No ALLERGIES Allergen Reactions Ciprofloxacin Other: See Comments Metronidazole Other: See Comments Objective BP 115/74 Pulse 61 SpO2 96% Physical Exam Constitutional: Appearance: Normal appearance. Pulmonary: Effort: Pulmonary effort is normal. Genitourinary: Comments: Prostate enlarged, no nodules, NT. Neurological: Mental Status: Ezekiel is alert and oriented to person, place, and time. ASSESSMENT/PLAN: 1. Benign prostatic hyperplasia with weak urinary stream - ICD9: 600.01, 788.62, ICD10: N40.1, R39.12 (primary diagnosis) The patient notes that he was having quite a bit of difficulty urinating about 2 months ago for about a week. He said that the symptoms have resolved however he still does not urinate normally. We had previously discussed having him undergo UroLift. The patient had numerous questions about this today. I explained to the patient that he really does need to avoid straining to urinate as this can lead to multiple other problems. Ultimately, we decided that we should get an up-to-date ultrasound to ensure that the patient is adequately emptying and has not developed hydronephrosis. We will plan to have him call for the results. The patient understands that he Apsley must call for the results and that he cannot assume no news is good news. Of note, his recent PSA was 1.88 ng/mL which is stable. - PROSTATE-SPECIFIC ANTIGEN DIAGNOSTIC 2. Retention of urine - ICD9: 788.20, ICD10: R33.9 See above - BASIC METABOLIC PANEL Queta Nelson MD Follow Up Return in about 1 year (around 03/14/2026). documented in this encounter [facility] 03-14-2024 History of Presen t illness Narrative March 14, 2024 Reason for Appointment Patient presents with: Follow Up: Patient had labs completed. He has had no change or improvement. Patient did try a prostate medication otc for 2 months. He had little to no improvement on that as well so he stopped taking it. Denies any pain/ burning with urination. TG HPI Blanca Noriega is a 58 year old adult who presents today for a follow-up appointment. The patient said that he really feels like his urinary patterns are unchanged. He did try some [id number] prostate supplements which really did not improve his urinary patterns at all. He said that he tried them for about 2 months and subsequently stopped. He still feels as though he does not empty his bladder completely. Again, he tried tamsulosin without success. Current Medications No prescriptions on file. PAST MEDICAL HISTORY Diagnosis Date Celiac disease CPAP rhinitis Herpes zoster without complication History of chicken pox PAST SURGICAL HISTORY Procedure Laterality Date APPENDECTOMY VASECTOMY UNI/BI SPX W/POSTOP SEMEN EXAMS FAMILY HISTORY Problem Relation Age of Onset No Known Problems Mother Diabetes Father other (Kidney failure) Father other (Celiac disease) Brother No Known Problems Maternal Grandmother Social History Tobacco Use Smoking status: Never Smokeless tobacco: Never Vaping Use Vaping Use: Never used Substance Use Topics Alcohol use: No Drug use: No ALLERGIES Allergen Reactions Ciprofloxacin Other: See Comments Metronidazole Other: See Comments Objective BP 110/74 Pulse 68 SpO2 95% Physical Exam Constitutional: Appearance: Normal appearance. Ezekiel Noriega is normal weight. Pulmonary: Effort: Pulmonary effort is normal. Genitourinary: Comments: Prostate is moderately enlarged, there is no nodularity or tenderness. Neurological: Mental Status: Ezekiel Noriega is alert and oriented to person, place, and time. ASSESSMENT/PLAN: 1. Benign prostatic hyperplasia with weak urinary stream - ICD9: 600.01, 788.62, ICD10: N40.1, R39.12 (primary diagnosis) The patient underwent a serum PSA determination recently it was 1.53 ng/mL. We will continue to check the PSA annually. I did have a long conversation with the patient about his urinary patterns. I explained to him that he would be a candidate for a UroLift procedure to get him urinating better and hopefully help him with the sensations of incomplete emptying however today is postvoid residual was actually 0 mL. The patient had numerous questions about UroLift which I answered for him. He said that he is not ready to proceed with any type of intervention. We will plan to see him back in 1 year for routine follow-up. - PROSTATE-SPECIFIC ANTIGEN DIAGNOSTIC 2. Retention of urine - ICD9: 788.20, ICD10: R33.9 The patient's creatinine was up ever so slightly to 1.27 ng/mL. At this point though his renal function is actually pretty stable. We will continue to check it annually. - UA DIP, URINE (POC) - BASIC METABOLIC PANEL Queta Nelson MD Follow Up Return in about 1 year (around 03/14/2025) for labs prior. PVR 0 ml documented in this encounter [facility] 12-16-2023 Miscellaneous Notes Left message for patient to return call and provided number. Mirian Oleary MA Patient was called and a message was left to return call to the office. Phone number provided. Ester Vinson MA Please let pt know that his overnight pulse ox while on cpap came back normal. He did not have any drops in oxygen below 90% and therefore does not need supplemental oxygen. Thanks. Kris Tellez DO documented in this encounter [facility] 11-17-2023 Miscellaneous Notes Blanca Noriega [id number] Blanca Noriega has been referred to [facility] for an Overnight Pulse Ox. The referral has been faxed and there office will call the patient to schedule. The patient was informed. documented in this encounter [facility] 03-11-2023 Note HNO ID: [id number] Author: Kris Lexi Tellez, DO Service: ? Author Type: Physician Type: Progress Notes Filed: 03/11/2023 4:59 PM Note Text: Blanca Noriega is a 57 year old adult here today acutely because of having: Patient presents with: Allergies Patient complains of seasonal allergies. Has had allergy injections every May from age [age]. Then was ok taking OTC but doesn't seem to help anymore. This May it has gotten really bad with congestion, itchy watery eyes, runny nose. OTC- Claritin this week, not helping. Wants to discuss snoring. Wonders if it is related to the allergies. Review of Systems Constitutional: Negative for chills, fatigue and fever. HENT: Negative for congestion, ear pain and sore throat. Respiratory: Negative for cough, shortness of breath and wheezing. Cardiovascular: Negative for chest pain, palpitations and leg swelling. Gastrointestinal: Negative for abdominal pain, constipation, diarrhea, nausea and vomiting. Musculoskeletal: Negative for arthralgias, joint swelling and myalgias. Skin: Negative for color change and rash. Allergic/Immunologic: Positive for environmental allergies. Neurological: Negative for dizziness, numbness and headaches. Hematological: Does not bruise/bleed easily. Psychiatric/Behavioral: Negative. Negative for dysphoric mood. All other systems reviewed and are negative. ACTIVE PROBLEM LIST Celiac Disease Urinary (Tract) Obstruction Difficulty Urinating Benign Prostatic Hyperplasia With Weak Urinary Stream Retention of Urine PAST SURGICAL HISTORY Procedure Laterality Date APPENDECTOMY VASECTOMY UNI/BI SPX W/POSTOP SEMEN EXAMS Social History Tobacco Use Smoking status: Never Smokeless tobacco: Never Vaping Use Vaping Use: Never used Substance Use Topics Alcohol use: No Drug use: No FAMILY HISTORY Problem Relation Age of Onset No Known Problems Mother Diabetes Father other (Kidney failure) Father other (Celiac disease) Brother No Known Problems Maternal Grandmother ALLERGIES Allergen Reactions Ciprofloxacin Other: See Comments Metronidazole Other: See Comments MEDICATIONS: Current Outpatient Medications Medication Sig Dispense Refill fluticasone (FLONASE) 50 mcg/actuation nasal spray Use 2 Sprays in each nostril daily at bedtime. 16 g 2 No current facility-administered medications for this visit. BP 128/78 (BP Site: Left Arm, BP Position: Sitting, BP Cuff Size: Regular Adult) Pulse 68 Temp 36.4 ?C (97.5 ?F) (Temporal) Resp 20 Ht 177.8 cm (5' 10) Wt 81.6 kg (180 lb) SpO2 100% BMI 25.83 kg/m? BMI 25.83 kg/(m2) Physical Exam Vitals reviewed. Constitutional: General: Ezekiel Noriega is not in acute distress. Appearance: Normal appearance. Ezekiel Noriega is well-developed. HENT: Head: Normocephalic and atraumatic. Right Ear: Tympanic membrane, ear canal and external ear normal. Left Ear: Tympanic membrane, ear canal and external ear normal. Nose: Congestion present. Right Turbinates: Swollen and pale. Left Turbinates: Swollen and pale. Mouth/Throat: Mouth: Mucous membranes are moist. Comments: Small posterior airway Eyes: General: No scleral icterus. Right eye: No discharge. Left eye: No discharge. Extraocular Movements: Extraocular movements intact. Conjunctiva/sclera: Conjunctivae normal. Cardiovascular: Rate and Rhythm: Regular rhythm. Pulmonary: Effort: Pulmonary effort is normal. No respiratory distress. Abdominal: General: Abdomen is flat. Musculoskeletal: Cervical back: Normal range of motion. Comments: Normal gait Skin: General: Skin is warm and dry. Neurological: General: No focal deficit present. Mental Status: Ezekiel Noriega is alert and oriented to person, place, and time. Cranial Nerves: No cranial nerve deficit. Psychiatric: Mood and Affect: Mood normal. Behavior: Behavior normal. Thought Content: Thought content normal. Judgment: Judgment normal. ASSESSMENT/PLAN: 1. Seasonal allergic rhinitis, unspecified trigger - ICD9: 477.9, ICD10: J30.2 (primary diagnosis) - TRIAMCINOLONE ACETONIDE 40 MG/ML SUSPENSION FOR INJECTION - FLUTICASONE PROPIONATE 50 MCG/ACTUATION NASAL SPRAY,SUSPENSION 2. Snoring - ICD9: 786.09, ICD10: R06.83 Encouraged to call if snoring not improved in 2 weeks to proceed with sleep study. Kris Tellez Portions of this note have been entered by ancillary staff. I have reviewed and when necessary edited, so that they are an adequate record of my encounter with this patient. [facility] 03-11-2023 History of Presen t illness Narrative Blanca Noriega is a 57 year old adult here today acutely because of having: Patient presents with: Allergies Patient complains of seasonal allergies. Has had allergy injections every May from age [age]. Then was ok taking OTC but doesn't seem to help anymore. This May it has gotten really bad with congestion, itchy watery eyes, runny nose. OTC- Claritin this week, not helping. Wants to discuss snoring. Wonders if it is related to the allergies. Review of Systems Constitutional: Negative for chills, fatigue and fever. HENT: Negative for congestion, ear pain and sore throat. Respiratory: Negative for cough, shortness of breath and wheezing. Cardiovascular: Negative for chest pain, palpitations and leg swelling. Gastrointestinal: Negative for abdominal pain, constipation, diarrhea, nausea and vomiting. Musculoskeletal: Negative for arthralgias, joint swelling and myalgias. Skin: Negative for color change and rash. Allergic/Immunologic: Positive for environmental allergies. Neurological: Negative for dizziness, numbness and headaches. Hematological: Does not bruise/bleed easily. Psychiatric/Behavioral: Negative. Negative for dysphoric mood. All other systems reviewed and are negative. ACTIVE PROBLEM LIST Celiac Disease Urinary (Tract) Obstruction Difficulty Urinating Benign Prostatic Hyperplasia With Weak Urinary Stream Retention of Urine PAST SURGICAL HISTORY Procedure Laterality Date APPENDECTOMY VASECTOMY UNI/BI SPX W/POSTOP SEMEN EXAMS Social History Tobacco Use Smoking status: Never Smokeless tobacco: Never Vaping Use Vaping Use: Never used Substance Use Topics Alcohol use: No Drug use: No FAMILY HISTORY Problem Relation Age of Onset No Known Problems Mother Diabetes Father other (Kidney failure) Father other (Celiac disease) Brother No Known Problems Maternal Grandmother ALLERGIES Allergen Reactions Ciprofloxacin Other: See Comments Metronidazole Other: See Comments MEDICATIONS: Current Outpatient Medications Medication Sig Dispense Refill fluticasone (FLONASE) 50 mcg/actuation nasal spray Use 2 Sprays in each nostril daily at bedtime. 16 g 2 No current facility-administered medications for this visit. BP 128/78 (BP Site: Left Arm, BP Position: Sitting, BP Cuff Size: Regular Adult) Pulse 68 Temp 36.4 C (97.5 F) (Temporal) Resp 20 Ht 177.8 cm (5' 10) Wt 81.6 kg (180 lb) SpO2 100% BMI 25.83 kg/m BMI 25.83 kg/(m^2) Physical Exam Vitals reviewed. Constitutional: General: Ezekiel Noriega is not in acute distress. Appearance: Normal appearance. Ezekiel Noriega is well-developed. HENT: Head: Normocephalic and atraumatic. Right Ear: Tympanic membrane, ear canal and external ear normal. Left Ear: Tympanic membrane, ear canal and external ear normal. Nose: Congestion present. Right Turbinates: Swollen and pale. Left Turbinates: Swollen and pale. Mouth/Throat: Mouth: Mucous membranes are moist. Comments: Small posterior airway Eyes: General: No scleral icterus. Right eye: No discharge. Left eye: No discharge. Extraocular Movements: Extraocular movements intact. Conjunctiva/sclera: Conjunctivae normal. Cardiovascular: Rate and Rhythm: Regular rhythm. Pulmonary: Effort: Pulmonary effort is normal. No respiratory distress. Abdominal: General: Abdomen is flat. Musculoskeletal: Cervical back: Normal range of motion. Comments: Normal gait Skin: General: Skin is warm and dry. Neurological: General: No focal deficit present. Mental Status: Ezekiel Noriega is alert and oriented to person, place, and time. Cranial Nerves: No cranial nerve deficit. Psychiatric: Mood and Affect: Mood normal. Behavior: Behavior normal. Thought Content: Thought content normal. Judgment: Judgment normal. ASSESSMENT/PLAN: 1. Seasonal allergic rhinitis, unspecified trigger - ICD9: 477.9, ICD10: J30.2 (primary diagnosis) - TRIAMCINOLONE ACETONIDE 40 MG/ML SUSPENSION FOR INJECTION - FLUTICASONE PROPIONATE 50 MCG/ACTUATION NASAL SPRAY,SUSPENSION 2. Snoring - ICD9: 786.09, ICD10: R06.83 Encouraged to call if snoring not improved in 2 weeks to proceed with sleep study. Kris Tellez Portions of this note have been entered by ancillary staff. I have reviewed and when necessary edited, so that they are an adequate record of my encounter with this patient. documented in this encounter [facility] 01-08-2023 History of Past i llness Narrative Problem Noted Date Diagnosed Date Resolved Date Retention of urine 01/08/2023 Difficulty urinating 03/01/2021 024 Urinary (tract) obstruction 01/10/2015 11/17/2023 History of chicken pox 03/01 Herpes zoster without complication 03/01/2021 documented as of this encounter (statuses as of 11/18/2023) [facility]03-30-2023 History of Past illness Narrative* Problem Noted Date Diagnosed Date Resolved Date Retention of urine 01/08/2023 Difficulty urinating 03/01/2021 024 Urinary (tract) obstruction 01/10/2015 11/17/2023 History of chicken pox 03/01 Herpes zoster without complication 03/01/2021 documented as of this encounter (statuses as of 12/16/2023) [facility]03-30-2023 NoteHNO ID: [id number] Author: Queta Nelson MD Service: ? Author Type: Physician Type: Progress Notes Filed: 01/08/2023 9:22 AM Note Text: January 08, 2023 Reason for Appointment Patient presents with: Follow Up: Pt offers no complaints. HPI Blanca Noriega is a 57 year old adult who presents today for a follow-up appointment. The patient said that he has really reduced his caffeine consumption and feels like this has resulted in significant improvement in his urinary patterns. He said that he still has a fairly weak urinary stream but at this point he is satisfied with it. He denies any gross hematuria or urinary tract infections in the interim. He is not on any urinary medication. Current Medications Zinc 50 mg tab Take by mouth. folic acid/multivit-min/lutein (CENTRUM SILVER ORAL) Take by mouth. PAST MEDICAL HISTORY Diagnosis Date Celiac disease Herpes zoster without complication History of chicken pox PAST SURGICAL HISTORY Procedure Laterality Date APPENDECTOMY VASECTOMY UNI/BI SPX W/POSTOP SEMEN EXAMS FAMILY HISTORY Problem Relation Age of Onset No Known Problems Mother Diabetes Father other (Kidney failure) Father other (Celiac disease) Brother No Known Problems Maternal Grandmother Social History Tobacco Use Smoking status: Never Smokeless tobacco: Never Vaping Use Vaping Use: Never used Substance Use Topics Alcohol use: No Drug use: No ALLERGIES Allergen Reactions Ciprofloxacin Other: See Comments Metronidazole Other: See Comments Objective BP 125/88 Pulse 62 Ht 5' 10 (1.78m) Wt 181 lb (82.1kg) SpO2 98% BMI 25.97 kg/(m2). Physical Exam Constitutional: Appearance: Normal appearance. Pulmonary: Effort: Pulmonary effort is normal. Neurological: Mental Status: Ezekiel Noriega is alert and oriented to person, place, and time. ASSESSMENT/PLAN: 1. Benign prostatic hyperplasia with weak urinary stream - ICD9: 600.01, 788.62, ICD10: N40.1, R39.12 (primary diagnosis) The patient feels like he is doing okay with regard to urination and is not interested in any medical therapy or intervention. We will however continue to follow him fairly closely. We will see him back in 6 months with a PSA prior to the visit. We will plan to recheck his postvoid residual at that time. We will also keep an eye on his renal function with a BMP prior to that visit. - PSA/PROSTSPECAG DIAG 2. Retention of urine - ICD9: 788.20, ICD10: R33.9 See above - BASIC METABOLIC PNL Queta Nelson MD Follow Up Return in about 6 months (around 07/11/2023) for PVR, labs prior.[facility]11-23-2022 NoteHNO ID: [id number] Author: Kris Tellez, DO Service: ? Author Type: Physician Type: Progress Notes Filed: 09/03/2022 11:04 AM Note Text: Blanca Noriega is a 56 year old adult here today acutely because of having: Patient presents with: Sore Throat Patient complains of a sore throat since Thursday. No fever, sinus congestion. A little unproductive cough. Hoarse voice. Hot tea with honey and apple cider vinegar. OTC-nothing. Review of Systems Constitutional: Negative for chills, fatigue and fever. HENT: Positive for sore throat. Negative for congestion and ear pain. Respiratory: Negative for cough, shortness of breath and wheezing. Cardiovascular: Negative for chest pain, palpitations and leg swelling. Gastrointestinal: Negative for abdominal pain, constipation, diarrhea, nausea and vomiting. Musculoskeletal: Negative for arthralgias, joint swelling and myalgias. Skin: Negative for color change and rash. Neurological: Negative for dizziness, numbness and headaches. Hematological: Does not bruise/bleed easily. Psychiatric/Behavioral: Negative. Negative for dysphoric mood. All other systems reviewed and are negative. ACTIVE PROBLEM LIST Celiac Disease Urinary (Tract) Obstruction Difficulty Urinating Benign Prostatic Hyperplasia With Weak Urinary Stream PAST SURGICAL HISTORY Procedure Laterality Date APPENDECTOMY VASECTOMY UNI/BI SPX W/POSTOP SEMEN EXAMS Social History Tobacco Use Smoking status: Never Smokeless tobacco: Never Vaping Use Vaping Use: Never used Substance Use Topics Alcohol use: No Drug use: No FAMILY HISTORY Problem Relation Age of Onset No Known Problems Mother Diabetes Father other (Kidney failure) Father other (Celiac disease) Brother No Known Problems Maternal Grandmother ALLERGIES Allergen Reactions Ciprofloxacin Other: See Comments Metronidazole Other: See Comments MEDICATIONS: Current Outpatient Medications Medication Sig Dispense Refill Zinc 50 mg tab Take by mouth. folic acid/multivit-min/lutein (CENTRUM SILVER ORAL) Take by mouth. No current facility-administered medications for this visit. BP 126/72 (BP Site: Left Arm, BP Position: Sitting, BP Cuff Size: Regular Adult) Pulse 82 Temp 36.1 ?C (97 ?F) Resp 18 Ht 177.8 cm (5' 10) Wt 82.4 kg (181 lb 11.2 oz) SpO2 98% BMI 26.07 kg/m? BMI 26.07 kg/(m2) Physical Exam Vitals reviewed. Constitutional: General: Ezekiel Noriega is not in acute distress. Appearance: Normal appearance. Ezekiel Noriega is well-developed. HENT: Head: Normocephalic and atraumatic. Right Ear: External ear normal. Left Ear: External ear normal. Nose: Congestion present. Mouth/Throat: Mouth: Mucous membranes are moist. Pharynx: Posterior oropharyngeal erythema present. Eyes: General: No scleral icterus. Right eye: No discharge. Left eye: No discharge. Extraocular Movements: Extraocular movements intact. Conjunctiva/sclera: Conjunctivae normal. Cardiovascular: Rate and Rhythm: Regular rhythm. Pulmonary: Effort: Pulmonary effort is normal. No respiratory distress. Abdominal: General: Abdomen is flat. Musculoskeletal: Cervical back: Normal range of motion. Comments: Normal gait Skin: General: Skin is warm and dry. Neurological: General: No focal deficit present. Mental Status: Ezekiel Noriega is alert and oriented to person, place, and time. Cranial Nerves: No cranial nerve deficit. Psychiatric: Mood and Affect: Mood normal. Behavior: Behavior normal. Thought Content: Thought content normal. Judgment: Judgment normal. ASSESSMENT/PLAN: 1. Pharyngitis, unspecified etiology - ICD9: 462, ICD10: J02.9 - suspect viral - Alere Strep Test neg, no culture pending - Discussed supportive care treatment with fluids, rest and analgesia. - The patient may also use warm salt water gargles, throat lozenges and/or OTC throat spray as needed. - The patient should follow up in 3-5 days if symptoms persist or worsen - FLU A/B B/O - STREP A MOLECULAR (POC) Kris Tellez Portions of this note have been entered by ancillary staff. I have reviewed and when necessary edited, so that they are an adequate record of my encounter with this patient.[facility]09-29-2022 NoteHNO ID: [id number] Author: Queta Nelson MD Service: ? Author Type: Physician Type: Progress Notes Filed: 07/10/2022 1:31 PM Note Text: July 10, 2022 Reason for Appointment Patient presents with: Follow Up: UDS follow up. He states it was painful the first few days after the UDS but no issues now. HPI Blanca Noriega is a 56 year old adult who presents today for a follow-up appointment to discuss the results of his recent urodynamics testing. The patient did have some pain following the testing but overall is doing fairly well. The urodynamics really were consistent with an obstructive pattern however the patient also did appear to have a fairly small capacity bladder with some overactivity. Clinically though the patient complains about incomplete emptying. He notes that he has a very weak urinary stream. He also has hesitancy but the thing that bothers him the most is the incomplete emptying. Current Medications folic acid/multivit-min/lutein (CENTRUM SILVER ORAL) Take by mouth. PAST MEDICAL HISTORY Diagnosis Date Celiac disease Herpes zoster without complication History of chicken pox PAST SURGICAL HISTORY Procedure Laterality Date APPENDECTOMY VASECTOMY UNI/BI SPX W/POSTOP SEMEN EXAMS FAMILY HISTORY Problem Relation Age of Onset No Known Problems Mother Diabetes Father other (Kidney failure) Father other (Celiac disease) Brother No Known Problems Maternal Grandmother Social History Tobacco Use Smoking status: Never Smokeless tobacco: Never Vaping Use Vaping Use: Never used Substance Use Topics Alcohol use: No Drug use: No ALLERGIES Allergen Reactions Ciprofloxacin Other: See Comments Metronidazole Other: See Comments Objective BP 107/70 Pulse 71 Ht 5' 10 (1.78m) Wt 178 lb (80.7kg) SpO2 99% BMI 25.54 kg/(m2). Physical Exam Constitutional: Appearance: Normal appearance. Pulmonary: Effort: Pulmonary effort is normal. Neurological: Mental Status: Ezekiel Noriega is alert and oriented to person, place, and time. ASSESSMENT/PLAN: 1. Benign prostatic hyperplasia with weak urinary stream - ICD9: 600.01, 788.62, ICD10: N40.1, R39.12 The patient has just modest enlargement of the prostate however he appears to have obstructive pattern. He did not get much response with tamsulosin. We discussed the option of UroLift versus laser ablation of the prostate again. I told him that my strongest recommendation would be to proceed with the UroLift. I went over this option in detail with him today. We discussed the potential risks including failure to improve his symptoms, worsening urgency and frequency, pain, bleeding, infection, the need for additional procedures, and injury to the urethra, prostate, bladder, or adjacent structures. The patient ultimately said that he is going to have to carefully consider this option. For now he only wanted to schedule a follow-up in 6 months. Queta Nelson MD Follow Up Return in about 6 months (around 01/07/2023).[facility]09-14-2022 NoteHNO ID: [id number] Author: Queta Nelson MD Service: ? Author Type: Physician Type: Procedures Filed: 06/25/2022 11:32 AM Note Text: Uroflowmetry revealed a maximum flow rate of 7.6 mL/s. The patient voided 116 mL with a postvoid residual of 220 mL. Filling cystometry revealed severe overactivity which produced urgency and urge incontinence. We were able to fill him to 290 mL. Pressure flow testing is difficult to interpret. His maximum flow rate was not calculated correctly. Patient voided 177 mL with a calculated residual of 103 mL however the patient did lose some of the volume with incontinence. His maximum detrusor pressure was 89.6 cm of water. In summary, the patient certainly has an obstructive pattern based on his uroflow. He does not have a neurogenic bladder. He does seem to have somewhat of a small capacity bladder. Clinical correlation will be required.[facility]09-08-2022 Note HNO ID: [id number] Author: Queta Tomás Gigax, MD Service: ? Author Type: Physician Type: Progress Notes Filed: 06/19/2022 9:17 AM Note Text: June 19, 2022 Reason for Appointment Patient presents with: Follow Up: 10 month follow up. PSA not done. States he stopped taking Tamsulosin in January because he didn't feel it was effective. He has been drinking extra water and feels that helps. HPI Blanca Noriega is a 56 year old adult who presents today for a follow-up appointment. Unfortunately, the patient did not get a PSA prior to today's visit. He said that he stopped the tamsulosin because he really did not feel like it was helping him all that much however he continues to complain about obstructive symptoms including hesitancy, incomplete emptying, a diminished force of stream, and intermittency. He denies any gross hematuria or urinary tract infections. Current Medications folic acid/multivit-min/lutein (CENTRUM SILVER ORAL) Take by mouth. PAST MEDICAL HISTORY Diagnosis Date Celiac disease Herpes zoster without complication History of chicken pox PAST SURGICAL HISTORY Procedure Laterality Date APPENDECTOMY VASECTOMY UNI/BI SPX W/POSTOP SEMEN EXAMS FAMILY HISTORY Problem Relation Age of Onset No Known Problems Mother Diabetes Father other (Kidney failure) Father other (Celiac disease) Brother No Known Problems Maternal Grandmother Social History Tobacco Use Smoking status: Never Smokeless tobacco: Never Vaping Use Vaping Use: Never used Substance Use Topics Alcohol use: No Drug use: No ALLERGIES Allergen Reactions Ciprofloxacin Other: See Comments Metronidazole Other: See Comments Objective BP 113/77 Pulse 74 Ht 5' 10 (1.78m) Wt 178 lb (80.7kg) SpO2 97% BMI 25.54 kg/(m2). Physical Exam Constitutional: Appearance: Normal appearance. Pulmonary: Effort: Pulmonary effort is normal. Genitourinary: Comments: The prostate is moderately enlarged, there is no nodularity or tenderness. Neurological: Mental Status: Ezekiel Noriega is alert and oriented to person, place, and time. ASSESSMENT/PLAN: 1. Benign prostatic hyperplasia with weak urinary stream - ICD9: 600.01, 788.62, ICD10: N40.1, R39.12 The patient continues to have obstructive lower urinary tract symptoms and his postvoid residual is moderately elevated. We again discussed the option of the UroLift and went over the risks and benefits in detail. The patient is still reluctant to undergo the procedure. Ultimately I recommended that we proceed with urodynamics testing to further evaluate his bladder function and degree of obstruction. This will allow us to better predict his response to UroLift or other ablative prostate procedure. We went over this testing in detail. He will get a PSA in the interim. - UA DIP, URINE (POC) - PSA/PROSTSPECAG DIAG - UA WITH CULTURE IF INDICATED Queta Nelson MD Follow Up No follow-ups on file.[facility]09-08-2022 NoteHNO ID: [id number] Author: Sherry Cabral MA Service: ? Author Type: Welfare Visitor Type: Progress Notes Filed: 06/19/2022 9:17 AM Note Text: Ultrasound PVR Volume: 182ml Time: Sherry Cabral [facility]05-21-2021 History of Past illness Narrative* Problem Noted Date Resolved Date History of chicken pox Herpes zoster without complication 03/01/2021 documented as of this encounter (statuses as of 03/12/2023) [facility]05-21-2021 History of Past illness Narrative* Problem Noted Date Diagnosed Date Resolved Date History of chicken pox 03/01 Herpes zoster without complication 03/01/2021 documented as of this encounter (statuses as of 07/11/2023) [facility] Diagnosis Seasonal allergic rhinitis, unspecified trigger- Primary Snoring Other dyspnea and respiratory abnormality documented in this [facility] Diagnosis Benign prostatic hyperplasia with weak urinary stream- Primary Retention of urine Retention of urine, unspecified [facility] Diagnosis Benign prostatic hyperplasia with weak urinary stream- Primary Retention of urine Retention of urine, unspecified [facility] Diagnosis Retention of urine Retention of urine, unspecified [facility] Diagnosis Benign prostatic hyperplasia with weak urinary stream- Primary [facility] Diagnosis Wellness examination- Primary Screening for depression Encounter for screening examination for other mental health and behavioral disorders Celiac disease (HCC) Celiac disease BEN (obstructive sleep apnea) Obstructive sleep apnea (adult) (pediatric) History of shingles Personal history of other infectious and parasitic disease Screening for heart disease Screening for other and unspecified cardiovascular conditions Family history of nonmelanoma skin cancer Family history of skin conditions [facility] Diagnosis Benign prostatic hyperplasia with weak urinary stream- Primary Preoperative testing Preoperative examination, unspecified Benign prostatic hyperplasia with weak urinary stream [facility]* Diagnosis Preoperative testing Preoperative examination, unspecified Benign prostatic hyperplasia with weak urinary stream documented in this encounter [facility] for visit Narrative* Diagnostic Procedure Only (Routine) - Closed Specialty Diagnoses / Procedures Referred By Contac t Referred To Contact [facility] Diagnoses Retention of urine Procedures US KIDNEY/BLADDER US RETROPERITONEAL REAL TIME W/IMAGE COMPLETE Queta Nelson MD [address] [place] [address] [address] [place] [address] Phone: tel: fax: [place] [phone] Referral ID Status Reason Start Date Expiration Date V isits Requested Visits Authorized [id number] Closed Auto-Generate d Referral 03/14/2025 04/13/2026 1 1 [facility] for visit Narrative* Outpatient Procedure (Routine) - Closed Specialty Diagnoses / Procedures Referred By Valerie marks Referred To [facility] Diagnoses Preoperative testing Procedures ECG COMPLETE ECG ROUTINE ECG W/LEAST 12 LDS W/I&R Queta Nelson MD [address] [place] [address] [address] [place] [address] Phone: tel: fax: [facility] [address] [place] [address] Referral ID Status Reason Start Date Expiration Date V isits Requested Visits Authorized [id number] Closed Auto-Generate d Referral 06/19/2025 10/11/2025 1 1 [facility] Summary Purpose Family History No Family History Records FoundNo Family History Records FoundNo Family History Records FoundNo Family History Records FoundNo Family History Records FoundNo Family History Records FoundNo Family History Records Found Advance Directives No Advanced Directives Records FoundNo Advanced Directives Records FoundNo Advanced Directives Records FoundNo Advanced Directives Records FoundNo Advanced Directives Records FoundNo Advanced Directives Records FoundNo Advanced Directives Records Found Procedure Findings Note [facility] Note FSC ID: [id number] Indication for procedure: Patient is a 54 year old gentleman with a personal history of colon polyps. Pre- operative Dx: Personal history of colon polyps Post-operative Dx: Normal colon Operation: Colonoscopy Surgeon: Shannon Anesthesia: RADU Tate CRNA Findings: Normal colon Specimens: none Complications: none Technique: Patient was brought to the endoscopy suite and attached to appropriate hemodynamic monitors. Time-out was performed and the patient was turned into left lateral decubitus position. Sedation was given and digital rectal exam was performed. Sphincter tone was normal. No anal canal or perianal lesions were appreciated. Prostate was normal in size and free of nodules. Pediatric colonoscope was inserted and advanced easily into the cecum as identified by the appendiceal orifice and the ileocecal valve. Preparation was excellent with a [place] Prep score of 9. On insertion, no abnormalities were seen. On withdrawal, the colo (more content not included)... Medications Administered Section Inactive Administered Medications - up to 3 most recent administrations Medication Order MAR Action Action Date Dose Rate Site triamcinolone acetonide 40 mg injection (KeNALog 40) 40 mg, INTRAMUSCULAR, ONCE (UP TO 30 DAYS AMB), 1 dose, On Thu03/11/23 at 1700 Given 03/11/2023 4:55 PM EDT 40 mg Hip, Left Additional Source Comments (unrecognized sect ion and content) No Status Records FoundNo Status Records FoundNo Status Records FoundNo Status Records FoundNo Status Records FoundNo Status Records FoundNo Status Records Found INFORMATION SOURCE (unrecogn ized section and content) DATE CREATED AUTHOR 09/19/2018 [facility] DATE CREATED AUTHOR AUTHOR'S ORGANIZ ATION 05/06/2020 [facility] DATE CREATED AUTHOR AUTHOR'S ORGANIZ ATION 09/24/2021 [facility] DATE CREATED AUTHOR AUTHOR'S ORGANIZ ATION 07/09/2022 [facility] DATE CREATED AUTHOR AUTHOR'S ORGANIZ ATION 07/11/2022 [facility] DATE CREATED AUTHOR AUTHOR'S ORGANIZ ATION 03/20/2023 [facility] DATE CREATED AUTHOR AUTHOR'S ORGANIZ ATION 08/11/2025 [facility] Source Comments (unrecognize d section and content) In the event this informatio n is protected by the Federal Confidentiality of Alcohol and Drug Abuse Patient Records regulations: The Federal rules restrict any use of the information to criminally investigate or prosecute any alcohol or drug abuse patient.[facility] the event this information is protected by the Federal Confidentiality of Alcohol and Drug Abuse Patient Records regulations: The Federal rules restrict any use of the information to criminally investigate or prosecute any alcohol or drug abuse patient.[facility] the event this information is protected by the Federal Confidentiality of Alcohol and Drug Abuse Patient Records regulations: The Federal rules restrict any use of the information to criminally investigate or prosecute any alcohol or drug abuse patient.[facility] the event this information is protected by the Federal Confidentiality of Alcohol and Drug Abuse Patient Records regulations: The Federal rules restrict any use of the information to criminally investigate or prosecute any alcohol or drug abuse patient.[facility] the event this information is protected by the Federal Confidentiality of Alcohol and Drug Abuse Patient Records regulations: The Federal rules restrict any use of the information to criminally investigate or prosecute any alcohol or drug abuse patient.[facility] the event this information is protected by the Federal Confidentiality of Alcohol and Drug Abuse Patient Records regulations: The Federal rules restrict any use of the information to criminally investigate or prosecute any alcohol or drug abuse patient.[facility] the event this information is protected by the Federal Confidentiality of Alcohol and Drug Abuse Patient Records regulations: The Federal rules restrict any use of the information to criminally investigate or prosecute any alcohol or drug abuse patient.[facility] the event this information is protected by the Federal Confidentiality of Alcohol and Drug Abuse Patient Records regulations: The Federal rules restrict any use of the information to criminally investigate or prosecute any alcohol or drug abuse patient.[facility] the event this information is protected by the Federal Confidentiality of Alcohol and Drug Abuse Patient Records regulations: The Federal rules restrict any use of the information to criminally investigate or prosecute any alcohol or drug abuse patient.[facility] the event this information is protected by the Federal Confidentiality of Alcohol and Drug Abuse Patient Records regulations: The Federal rules restrict any use of the information to criminally investigate or prosecute any alcohol or drug abuse patient.[facility] the event this information is protected by the Federal Confidentiality of Alcohol and Drug Abuse Patient Records regulations: The Federal rules restrict any use of the information to criminally investigate or prosecute any alcohol or drug abuse patient.[facility] the event this information is protected by the Federal Confidentiality of Alcohol and Drug Abuse Patient Records regulations: The Federal rules restrict any use of the information to criminally investigate or prosecute any alcohol or drug abuse patient.[facility] the event this information is protected by the Federal Confidentiality of Alcohol and Drug Abuse Patient Records regulations: The Federal rules restrict any use of the information to criminally investigate or prosecute any alcohol or drug abuse patient.[facility] the event this information is protected by the Federal Confidentiality of Alcohol and Drug Abuse Patient Records regulations: The Federal rules restrict any use of the information to criminally investigate or prosecute any alcohol or drug abuse patient.[facility] Reason for Visit (unrecogniz ed section and content) Reason Comments Allergies Reason Comments Overnight Pulse Ox Reason Comments Results Overnight pulse ox o n cpap Reason Comments Follow Up Patient had labs com pleted. He has had no change or improvement. Patient did try a prostate medication otc for 2 months. He had little to no improvement on that as well so he stopped taking it. Denies any pain/ burning with urination. TG Reason Comments Follow Up 1 year labs. Reason Comments Cyst Cystoscopy. Denies s /s of UTI. C/o slow stream and not emptying bladder completely. RR Reason Comments Wellness Pt is asking for ref erral to Derm. Pt is fasting. Reason Comments Orders Reason Comments Follow Up 6 week PVR. Care Teams (unrecognized sec tion and content) Legal Support Specialist Relationship Specialty [place] [address] [place] [address] PCP - General Family Medicine 07/27/18 Legal Support Specialist Relationship Specialty Start Date [place] [id number] [place] [id number] PCP - General Family Medicine 07/27/18 Legal Support Specialist Relationship Specialty Start Date End Date Geoff Kris Elliott [place] [id number] [place] [id number] PCP - General Family Medicine 07/27/18 Legal Support Specialist Relationship Specialty Start Date End [place] Kris [place]z [place] [id number] [place] [id number] PCP - General Family Medicine 07/27/18 Legal Support Specialist Relationship Specialty Start Date End Date Kris Tellez DO [address] [place] [id number] PCP - General Family Medicine 07/27/18 Legal Support Specialist Relationship Specialty Start Date End [place] Kris [place]ellez [place] [id number] [place] [address] PCP - General Family Medicine 07/27/18 Legal Support Specialist Relationship Specialty Start Date End Date Kris Tellez DO [id number] [place] [address] PCP - General Family Medicine 07/27/18 Legal Support Specialist Relationship Specialty Start Date End [place] Kris Tellez [place] [id number] [place] [address] PCP - General Family Medicine 07/27/18 Legal Support Specialist Relationship Specialty [place] [address] [address] PCP - General Family Medicine 07/27/18 Legal Support Specialist Relationship Specialty Start Date End Date Kris Tellez DO [id number] [place] [address] PCP - General Family Medicine 07/27/18 Legal Support Specialist Relationship Specialty Start Date End [place] Kris [place]ellez [place] [id number] [place] [address] PCP - General Family Medicine 07/27/18 Legal Support Specialist Relationship Specialty Start Date End Date Kris Tellez [id number] [place] [address] PCP - General Family Medicine 07/27/18 Legal Support Specialist Relationship Specialty Start Date End Date Kris Tellez [id number] [place] [address] PCP - General Family Medicine 07/27/18 Legal Support Specialist Relationship Specialty Start Date End Date Kris Tellez [id number] [place] [address] PCP - General Family Medicine 07/27/18 FOR RECORDS PERTAINING TO PATIENTS WHO ARE OR HAVE BEEN ENROLLED IN A CHEMICAL DEPENDENCY/SUBSTANCEABUSE PROGRAM, SOME INFORMATION MAY BE OMITTED. This clinical summary was aggregated from multiple sources. Caution should be exercised in using it in the provision of clinical care. This summary normalizes information from multiple sources, and as a consequence, information in this document may materially change the coding, format and clinical context of patient data. In addition, data may be omitted in some cases. CLINICAL DECISIONS SHOULD BE BASED ON THE PRIMARY CLINICAL RECORDS. [facility] Department of Health and Human Services [facility]. provides no warranty or guarantee of the accuracy or completeness of information in this document.
[2025-09-07 21:26] VITALS: PULSE 82; RESP 18; O2SAT 97
[2025-09-07 21:30] VITALS: BP 126/75; PULSE 78; RESP 18; TEMP 36.6; O2SAT 97
== END 2025-09-07 21:38 | disposition home or self-care (01) ==
PROVIDERS: Emergency Provider Surgery; PCP Family Medicine; Visit Provider Surgery
DX: M62.838 Other muscle spasm (principal); M54.2 Cervicalgia; M25.512 Pain in left shoulder; M25.511 Pain in right shoulder; V43.62XA Car passenger injured in collision with other type car in traffic accident, initial encounter
CPT/HCPCS: 70450; 71045; 72125; 99284